=== PATIENT | male | born 1940 | race Two or more races ===

== ENCOUNTER 2021-12-24 12:33 | Outpatient (REF) | payer OTHER, SELFPAY ==
--- NOTE | ~2021-12-24 | XR_ITS ---
EXAMINATION: XR ABDOMEN KUB CLINICAL INDICATION: Constipation COMPARISON: None TECHNIQUE: AP view of the abdomen. FINDINGS: There is stool throughout the colon suggestive of constipation. There are no dilated loops of bowel to suggest obstruction. There is no evidence of free air. No calcifications are seen. There are degenerative changes of the spine. XR/XR KUB IMPRESSION: Constipation.
== END 2021-12-24 12:34 | disposition home or self-care (01) ==
LOC: HO.XRAY 12:33
PROVIDERS: PCP Internal Medicine; Visit Provider Internal Medicine
DX: K59.09 Other constipation (principal)
CPT/HCPCS: 74018

== ENCOUNTER 2022-05-05 15:19 | Inpatient (IN) | payer OTHER, SELFPAY ==
[2022-05-05] VITALS (7 sets, daily range): BP systolic 128–156; BP diastolic 50–73; PULSE 62–89; RESP 17–21; TEMP 37.2–37.7; O2SAT 92–100; BMI 23.8
--- NOTE | ~2022-05-05 | CT_ITS ---
EXAMINATION: CT ANGIOGRAM OF THE CHEST WITH AND WITHOUT CONTRAST (CT PULMONARY ANGIOGRAM FOR PE) CLINICAL INFORMATION: Reason for Exam Hypoxia. Prostate CA. rule out PE COMPARISON: None TECHNIQUE: Prior to contrast administration, noncontrast localization images were obtained. Subsequently, multidetector volumetric imaging was performed from the thoracic inlet to below the diaphragms following the administration of 85 mL Omnipaque 350 intravenous contrast. No contrast reaction reported Sagittal, coronal, and MIP oblique sagittal reformatted images were obtained on the CT workstation, uploaded to PACS, and reviewed. This CT examination was performed using dose optimization techniques as appropriate, variously including the following: *Automated exposure control *Adjustment of mA and/or kV according to patient size (this includes techniques or standardized protocols for targeted exams where dose is matched to indication/reason for exam; i.e. extremities or head) *Use of iterative reconstruction technique Total exam dose-length product 719 mGy-cm FINDINGS: QUALITY OF STUDY/CONTRAST BOLUS: Satisfactory. PULMONARY ARTERIES: No central or segmental pulmonary emboli. THORACIC AORTA: No aneurysm or dissection. LUNG: Perifissural lymph node present at the confluence of the fissures on the right. A calcified granuloma in the lingula. No focal consolidation, nodules or worrisome masses. PLEURA: No pleural effusion or pneumothorax. MEDIASTINUM: Normal heart size. No pericardial effusion. No hilar or mediastinal lymphadenopathy. No evidence of septal bowing or right heart strain. CHEST WALL/AXILLA: No axillary or internal mammary lymphadenopathy. OSSEOUS STRUCTURES: No acute or suspicious osseous abnormality. UPPER ABDOMEN: See report of abdomen/pelvis CT same day No reflux of contrast into the hepatic veins to suggest elevated right heart pressures. CT/CT angio chest PE protocol IMPRESSION: No pulmonary emboli are detected VTE: negative
--- NOTE | ~2022-05-05 | CT_ITS ---
EXAMINATION: CT ABDOMEN AND PELVIS WITH CONTRAST CLINICAL INFORMATION: Weakness and anemia COMPARISON: None TECHNIQUE: Multidetector volumetric images were obtained from the superior aspect of the liver through the pubic symphysis following administration 85 mL of Omnipaque 350 intravenous contrast. Sagittal and coronal reformatted images were obtained on the technologist's workstation. Oral contrast: No This CT examination was performed using dose optimization techniques as appropriate, variously including the following: *Automated exposure control *Adjustment of mA and/or kV according to patient size (this includes techniques or standardized protocols for targeted exams where dose is matched to indication/reason for exam; i.e. extremities or head) *Use of iterative reconstruction technique DLP: 719 mGy-cm FINDINGS: LUNG BASES: The visualized lung bases are unremarkable. LIVER, GALLBLADDER, AND BILIARY TREE: The liver is normal in size, shape, and attenuation. No focal hepatic lesion or biliary ductal dilatation is present. The gallbladder is unremarkable with no evidence of radiopaque gallstones, gallbladder wall thickening, or obvious pericholecystic inflammatory changes. PANCREAS: Unremarkable. SPLEEN: Unremarkable. ADRENAL GLANDS: Unremarkable. KIDNEYS AND URETERS: The kidneys are normal in size, shape, and attenuation. There is a benign Bosniak class I 3 cm cyst in the right kidney along with the smaller 7 mm cyst in the left kidney. No further imaging or follow-up is needed. No solid renal masses. No hydronephrosis, hydroureter, or calculi seen. No perinephric stranding. BLADDER: Unremarkable. GASTROINTESTINAL TRACT: The small and large bowel are unremarkable. The appendix is unremarkable. ABDOMINAL WALL: A left inguinal hernia seen containing fat and a small amount of fluid. LYMPH NODES: No retroperitoneal lymphadenopathy. VASCULAR: Unremarkable. PELVIC VISCERA: A large left hydrocele is partially visualized. There is mild enlargement of the prostate. OSSEOUS STRUCTURES: Mild degenerative changes present throughout the spine. No bony destructive lesions or evidence of bony metastatic disease. There is a single sclerotic foci present in the left iliac bone (15:59). CT/CT abdomen pelvis w con IMPRESSION: 1. No acute intra-abdominal disease. 2. Incidental note made of a left inguinal hernia with a small amount of fat and fluid within the sac and an associated large left hydrocele. Fleischner guidelines were followed.
--- NOTE | ~2022-05-05 | CT_ITS ---
EXAMINATION: NONCONTRAST HEAD CT NONCONTRAST CERVICAL SPINE CT INDICATION INFORMATION: Fall, question head injury. COMPARISON: MR cervical spine 02/28/2012 TECHNIQUE: Separate noncontrast CT examinations of the head and cervical spine were performed. Coronal and sagittal images were created for each examination at the technologist workstation. This CT examination was performed using dose optimization techniques as appropriate, variously including the following: *Automated exposure control *Adjustment of mA and/or kV according to patient size (this includes techniques or standardized protocols for targeted exams where dose is matched to indication/reason for exam; i.e. extremities or head) *Use of iterative reconstruction technique DLP: 1103 mGy-cm FINDINGS: HEAD: No intra or extra-axial fluid collection, hemorrhage, or mass. No ventriculomegaly. No midline shift or herniation. Basal cisterns are patent. Dumont-white matter differentiation is maintained. No territorial encephalomalacia. Proportional prominence of the ventricles and sulcal spaces is consistent with mild volume loss. Patchy periventricular and deep white matter hypoattenuation is consistent with mild small vessel ischemic changes. Small hypodense foci in the left basal ganglia suspicious for chronic tiny lacunar infarcts versus dilated perivascular spaces. No calvarial fracture or soft tissue abnormality. Minimal mucosal thickening in the floor the maxillary antra. Mastoid air cells are normally aerated. Status post bilateral lens extractions. CERVICAL SPINE: Alignment: Mild retrolisthesis at C3-C4, C4-C5, and C5-C6. Minimal grade 1 anterolisthesis at C7-T1. Widening of the atlantodens interval measuring 4-5 mm and narrowing of the AP diameter of the spinal canal at the C1-C2 level measuring approximately 6 mm. There is partially mineralized soft tissue thickening of the dens.. Cysts similar to prior MRI of 2012. Vertebra: No acute fracture. No prevertebral soft tissue swelling. Degenerative disc disease: Severe cervical spondylosis at C3-C4 through C6-C7. Milder degenerative disc disease at C2-C3 and C7-T1. Multilevel facet arthrosis and uncovertebral spurring. Multilevel moderate to severe if not severe central spinal canal stenosis suspected. Other findings: No cervical lymphadenopathy. Visualized major salivary glands and thyroid gland are unremarkable. Visualized lung apices are clear. CT/CT cervical spine wo con IMPRESSION: 1. No intracranial hemorrhage, calvarial fracture, or other acute intracranial abnormality. 2. No traumatic subluxation or acute cervical spine fracture. 3. Severe multilevel cervical spondylosis with moderate to severe and/or degrees of multilevel central spinal canal stenosis. 4. Widening of the atlantodens interval with resultant narrowing of the spinal canal diameter at C1-C2 suggesting injury or chronic laxity of the transverse ligament. Findings were present on prior MRI of 2011, and may have worsened only slightly.
--- NOTE | ~2022-05-05 | XR_ITS ---
EXAMINATION: XR CHEST CLINICAL INFORMATION: Weakness. COMPARISON: Chest x-ray 09/27/2012 TECHNIQUE: Frontal portable view of the chest was obtained. 1625 hours FINDINGS: Lung volume low. No acute change. No pulmonary vascular congestion. No focal consolidation, pleural effusion or pneumothorax. Heart size is normal. Cardiac mediastinal contours are normal. XR/XR chest 1V IMPRESSION: No acute abnormality of chest.
--- NOTE | 2022-05-05 16:25 | ECG_ITS ---
Test Reason : WEAKNESS Blood Pressure : / mmHG Vent. Rate : 075 BPM Atrial Rate : 075 BPM P-R Int : 146 ms QRS Dur : 076 ms QT Int : 362 ms P-R-T Axes : 053 -23 051 degrees QTc Int : 404 ms Artifact in tracing Sinus rhythm with Premature supraventricular complexes Nonspecific ST and T wave abnormality Abnormal ECG When compared with ECG of 27-SEP-2012 17:55, Premature supraventricular complexes are now Present Referred By: Gisela Torrez Electronically Signed By:MALIK BECK
--- NOTE | 2022-05-05 17:15 | ED_ITS ---
HPI - Weakness General Chief complaint: Weakness <MILLI Starr Last Filed: 05/05/22 18:16> Stated complaint: weakness covid + <MILLI Starr Last Filed: 05/05/22 18:16> Time Seen by Provider: 05/05/22 15:29 <MILLI Starr Last Filed: 05/05/22 18:16> Source: patient and EMS <MILLI Starr Last Filed: 05/05/22 18:16> Mode of arrival: EMS <MILLI Starr Last Filed: 05/05/22 18:16> History of Present Illness HPI Narrative: 81-year-old male with past medical history of prostate CA, COVID-19 positive at home yesterday, presenting to the ED complaining of increasing generalized weakness/fatigue with difficulty ambulating. Roommate reports chronic frequent falls, baseline supposed to be ambulating with walker however uses cane home, and patient was unable to ambulate today. Patient reports fall last night, unknown head trauma however does report headache. Also reports 1 episode of emesis yesterday and intermittent lightheadedness. Denies vision change/loss, CP, SOB, abdominal pain, vomiting, pedal edema, dysuria/hematuria. Denies taking anticoagulation. Patient is poor historian <MILLI Starr Last Filed: 05/05/22 18:16> MD Complaint: generalized weakness <MILLI Starr Last Filed: 05/05/22 18:16> Onset (ago): day(s) <MILLI Starr Last Filed: 05/05/22 18:16> Related Data Home medications: Home Medications Medication Instructions Recorded Confirmed B-complex with vitamin C 1 tab PO DAILY 05/05/22 05/05/22 calcium carbonate 500 mg-vitamin 1 tab PO DAILY 05/05/22 05/05/22 D3 10 mcg (400 unit) tablet (Oyster Shell Calcium-Vitamin D3) cholecalciferol (vitamin D3) 50 1 cap PO DAILY 05/05/22 05/05/22 mcg (2,000 unit) capsule meloxicam 15 mg tablet 1 tab PO DAILY 05/05/22 05/05/22 mirtazapine 15 mg tablet 1 tab PO BEDTIME 05/05/22 05/05/22 paroxetine HCl 10 mg tablet 1 tab PO DAILY 05/05/22 05/05/22 tamsulosin 0.4 mg capsule 1 cap PO DAILY 05/05/22 05/05/22 tizanidine 2 mg tablet 1 tab PO BEDTIME 05/05/22 05/05/22 tolterodine 4 mg capsule,extended 1 cap PO DAILY 05/05/22 05/05/22 release 24 hr <MILLI Starr - Last Filed: 05/05/22 18:16> Allergies/Adverse reactions: Allergies Allergy/AdvReac Type Severity Reaction Status Date / Time No Known Allergies Allergy Unverified 06/12/20 18:16 <MILLI Starr Last Filed: 05/05/22 18:16> Review of Systems Review of Systems: Constitutional: No Fever, No Chills, No Night Sweats, + Fatigue, + Malaise ENT/Mouth: No Ear Pain, No Nasal Congestion, No sore throat, No Rhinorrhea Eyes: No Eye Pain, No Swelling, No Redness, No Vision Changes Cardiovascular: No Chest Pain, No SOB, No Dyspnea on Exertion, No Edema Respiratory: No Cough, No Sputum, No Dyspnea Gastrointestinal: + Nausea, No Vomiting, No Diarrhea, No Constipation, No Abdominal pain Genitourinary: No Dysuria, No Flank Pain, No Urinary Flow Changes, No Hesitancy Musculoskeletal: No joint pain, No Myalgias, No Joint Swelling Skin: No Skin Lesions, No rash Neuro: + Weakness, No Loss of Consciousness, + lightheadedness, + Headache Patient is poor historian <MILLI Starr Last Filed: 05/05/22 18:16> Yes all other systems are reviewed and are negative <MILLI Starr Last Filed: 05/05/22 18:16> Constitutional: Constitutional: Reports as per HPI <MILLI Starr Last Filed: 05/05/22 18:16> Neurologic: Denies Abnormal speech present <MILLI Starr Last Filed: 05/05/22 18:16> [facility]LY [facility] Past Medical History Attestation statement: The following information was validated with the patient. <MILLI Starr Last Filed: 05/05/22 18:16> Social History Social History: Social History Advance Directives: Yes Advance Directives Information Provided: Yes Advance Directives on File: No <MILLI Starr - Last Filed: 05/05/22 18:16> Physical Exam Vital Signs: Vital Signs: Last Vital Signs Temp 99.6 F 05/05/22 19:46 Pulse 83 05/05/22 19:46 Resp 17 05/05/22 19:46 BP 132/73 05/05/22 19:46 Pulse Ox 92 05/05/22 17:23 O2 Del Method 05/05/22 17:23 O2 Flow Rate 1 05/05/22 17:23 BMI result Body Mass Index 23.8 <MILLI Starr - Last Filed: 05/05/22 18:16> Vital Signs: Last Vital Signs Temp 99.6 F 05/05/22 19:46 Pulse 83 05/05/22 19:46 Resp 17 05/05/22 19:46 BP 132/73 05/05/22 19:46 Pulse Ox 92 05/05/22 17:23 O2 Del Method 05/05/22 17:23 O2 Flow Rate 1 05/05/22 17:23 BMI result Body Mass Index 23.8 <Yina Bush NP - Last Filed: 05/05/22 20:01> Const: General: cooperative, no acute distress, alert and awake <MILLI Everett - Last Filed: 05/05/22 18:16> Limitations: no limitations <MILLI Starr - Last Filed: 05/05/22 18:16> HEENT: Head: Yes normal to inspection, Yes atraumatic and No Amin's sign <MILLI Starr - Last Filed: 05/05/22 18:16> Ears: hearing grossly normal bilaterally <MILLI Starr Last Filed: 18:16> General nose exam: Normal external nose present <MILLI Starr - Last Filed: 05/05/22 18:16> Face and sinus: Yes normal facial exam <MILLI Starr - Last Filed: 05/05/22 18:16> Mouth: mucous membranes dry <MILLI Starr - Last Filed: 05/05/22 18:16> Throat: Yes posterior oropharynx normal, Yes tonsils normal and Yes uvula midline <Gisela Torrez AL - Last Filed: 05/05/22 18:16> Eyes: General: appearance normal, both eyes and all related structures <Gisela Torrez PA - Last Filed: 05/05/22 18:16> Pupils: Equal, round and reactive pupils present <Gisela Torrez AL - Last Filed: 05/05/22 18:16> EOM: EOMs intact bilaterally <Gisela Torrez AL - Last Filed: 05/05/22 18:16> Neck: Neck: Yes normal visual inspection and Yes no meningeal signs <Gisela Torrez AL - Last Filed: 05/05/22 18:16> Resp: Effort & Inspection: normal respiratory effort and no respiratory distress <Gisela Torrez AL - Last Filed: 05/05/22 18:16> Auscultation: crackles bilateral at the base <Gisela Torrez AL - Last Filed: 05/05/22 18:16> Cardio: Rate: regular rate <Gisela Torrez AL - Last Filed: 05/05/22 18:16> Heart sounds: S1 normal heart sound present and S2 normal heart sound present <Gisela Torrez AL - Last Filed: 05/05/22 18:16> GI: Inspection: Yes normal to inspection <Gisela Torrez AL - Last Filed: 05/05/22 18:16> Palpation (GI): Soft to palpation, nontender, no guarding and not rigid <Gisela Torrez AL - Last Filed: 05/05/22 18:16> : General: Yes no CVA tenderness <Gisela Torrez PA - Last Filed: 05/05/22 18:16> Back/Spine/Pelvis: Other: No midline thoracic/lumbar spinous tenderness/step-off or deformity <Gisela Torrez PA - Last Filed: 05/05/22 18:16> Back: no CVA tenderness <Gisela Torrez AL - Last Filed: 05/05/22 18:16> Skin: Rashes: no rashes <Gisela Torrez PA - Last Filed: 05/05/22 18:16> Wounds: no wounds <Gisela Linneaterrell PA - Last Filed: 05/05/22 18:16> Neuro: General: tone normal, moves all extremities, no meningeal signs, no focal motor deficits, CN's II-XI intact bilaterally and Unable to assess gait <Gisela Linneaterrell PA - Last Filed: 05/05/22 18:16> Cranial nerves: Yes CN's II-XII intact bilaterally, Yes Equal, round and reactive pupils present and Yes Bilaterally intact EOM present <Gisela Linneaterrell PA - Last Filed: 05/05/22 18:16> Speech: No Abnormal speech present <Gisela Linneaterrell PA - Last Filed: 05/05/22 18:16> Gait exam (Neuro): Unable to assess gait <Gisela Linneaterrell PA - Last Filed: 05/05/22 18:16> Motor exam (neuro): 5/5 motor strength present throughout, Pronator motor function not present and no tremor noted <Gisela Linneaterrell PA - Last Filed: 05/05/22 18:16> Deep tendon reflexes (DTR's): Right patellar reflex intensity grade: 2+ and Left patellar reflex intensity grade: 2+ <Gisela Torrez PA - Last Filed: 05/05/22 18:16> Coordination: [id number] test normal <Gisela Linneaterrell PA - Last Filed: 05/05/22 18:16> Romberg Test: Negative <Gisela Torrez PA - Last Filed: 05/05/22 18:16> Extrem: General: Yes normal to inspection and Yes no pedal edema <Gisela Torrez PA - Last Filed: 05/05/22 18:16> Course Course Course Narrative: -1731--receive critical value from laboratory hemoglobin is 6.6 > will obtain occult stool and plan for transfusion of 1 unit RBCs >> blood consent signed, 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 Patient denies hematochezia or melena. XR chest 1V IMPRESSION: No acute abnormality of chest. > will obtain CT chest and abdomen/pelvis to rule out mass/PE -leukopenia likely from COVID-19 infection. BUN a baseline. troponin negative -COVID-[address] head/brain wo con IMPRESSION: ? 1. No intracranial hemorrhage, calvarial fracture, or other acute intracranial abnormality. 2. No traumatic subluxation or acute cervical spine fracture. 3. Severe multilevel cervical spondylosis with moderate to severe and/or degrees of multilevel central spinal canal stenosis. 4. Widening of the atlantodens interval with resultant narrowing of the spinal canal diameter at C1-C2 suggesting injury or chronic laxity of the transverse ligament. Findings? were present on prior MRI of 2011, and may have worsened only slightly. -1800--ED care transferred to [facility] pending CT chest/abdomen/pelvis CT and admission <MILLI Starr - Last Filed: 05/05/22 18:16> Reevaluation(s) Reevaluation #1: 2000- CT abdomen and pelvis and chest showed no acute finding. Patient will need admission for anemia, hypoxia secondary to COVID-19 requiring supplemental oxygen. the case was discussed with Dr. Jones who accepted admission <Yina Bush NP - Last Filed: 05/05/22 20:01> MDM - Weakness MDM Narrative Medical decision making narrative: 81-year-old male with past medical history of prostate CA, COVID-19 positive at home yesterday, presenting to the ED complaining of increasing generalized weakness/fatigue with difficulty ambulating. On exam low-grade fever to 99.3, satting 88% on RA > improved to 92% on 1L NC, Bibasilar crackles noted, abdomen is soft and nontender, no focal neuro deficits, bilateral patellar DTRs WNL. Patient unable to ambulate/ weight secondary to weaknes s. Concern for weakness/fatigue from COVID-19 diagnosis vs viral pneumonia vs metabolic abnormalities. With patient's history of prostate CA and hypoxia concern for PE. Lower suspicion for CHF/ACS. Low suspicion for demyelinating process like GB Plan: EKG, labs, UA, CXR, IV Decadron, head/C-spine CT, COVID-19 testing, orthostatics, IVF, anticipated admission <MILLI Starr - Last Filed: 05/05/22 18:16> Differential Diagnosis Differential diagnosis: Likely dehydration <MILLI Starr - Last Filed: 05/05/22 18:16> Medical Records Attestation: I reviewed the patient's medical records. <MILLI Starr - Last Filed: 05/05/22 18:16> Lab Data Attestation: I reviewed the patient's lab results. <MILLI Starr - Last Filed: 05/05/22 18:16> Result diagrams: : 05/05/22 17:10 05/05/22 17:10 <MILLI Starr - Last Filed: 05/05/22 18:16> Labs: Lab Results 05/05/22 05/05/22 05/05/22 Range/Units 17:10 17:10 17:10 WBC 4.6 L (4.8-10.8) X10*3/uL RBC 3.57 L (4.60-5.80) X10*6/uL Hgb 6.6 L* (14.0-18.0) g/dl Hct 23.6 L (42.0-52.0) % MCV 66.1 L (80.0-98.0) fL MCH 18.5 L (27.0-33.0) pg MCHC 28.0 L (31.0-36.0) g/dl RDW 23.9 H (11.0-16.0) % Plt Count 223 (160-400) X10*3/uL MPV 8.4 L (9.4-12.4) fL Immature Gran % (Auto) 0.4 (0.0-0.4) % Neut % (Auto) 67.3 (45-73) % Lymph % (Auto) 14.7 L (20-40) % [place] % (Auto) 15.2 H (2-11) % Eos % (Auto) 1.5 (0-4) % Baso % (Auto) 0.9 (0-2) % Lymph # (Auto) 0.7 L (1.2-4.9) X10*3/uL [place] # (Auto) 0.7 (0.1-1.2) X10*3/uL Eos # (Auto) 0.1 (0.0-0.4) X10*3/uL Baso # (Auto) 0.0 (0.0-0.2) X10*3/uL Abs Immat Gran (auto) 0.02 (0.00-0.03) X10*3/uL Absolute Neuts (auto) 3.1 (2.0-8.3) x10*3/uL Absolute Nucleated RBC 0.000 (0.0-0.012) X10*3/uL Nucleated RBC % (auto) 0.0 (0.0-0.2) /100WBC PT (10.0-13.1) SEC INR (0.9-1.1) D-Dimer High Sensitivty NG/ML Sodium 139 (135-145) mmol/L Potassium 4.3 (3.3-5.1) mmol/L Chloride 105 (96-108) mmol/L Carbon Dioxide 25 (22-29) mmol/L Anion Gap 13 (12-20) BUN 19 H (9-16) mg/dL Creatinine 1.05 (0.5-1.4) mg/dL Estim Creat Clear Calc 45.4 Estimated GFR > 60 Random Glucose 84 (60-115) mg/dL Lactic Acid (0.5-2.0) mmol/L Calcium 8.8 (8.4-10.2) mg/dL Magnesium 2.2 (1.6-2.6) mg/dL Ferritin Total Bilirubin 0.2 (0.0-1.0) mg/dL Direct Bilirubin < 0.2 (0.0-0.5) mg/dL AST 29 (5-37) U/L ALT 15 (0-40) U/L Alkaline Phosphatase 64 (39-117) U/L Lactate Dehydrogenase 261 (118-273) U/L Troponin I High Sens 3.7 (<3.5-35.0) ng/L B-Natriuretic Peptide (<100) pg/mL Total Protein 6.3 L (6.5-8.0) g/dL Albumin 3.6 (3.5-5.0) g/dL Lipase 41 (8-78) U/L Procalcitonin ng/mL Stool Occult Blood (NEGATIVE) COVID-19 (TOBI) (Negative) COVID-19 Clin Com Blood Type Antibody Screen Crossmatch 05/05/22 05/05/22 05/05/22 Range/Units 17:10 17:10 17:10 WBC (4.8-10.8) X10*3/uL RBC (4.60-5.80) X10*6/uL Hgb (14.0-18.0) g/dl Hct (42.0-52.0) % MCV (80.0-98.0) fL MCH (27.0-33.0) pg MCHC (31.0-36.0) g/dl RDW (11.0-16.0) % Plt Count (160-400) X10*3/uL MPV (9.4-12.4) fL Immature Gran % (Auto) (0.0-0.4) % Neut % (Auto) (45-73) % Lymph % (Auto) (20-40) % [place] % (Auto) (2-11) % Eos % (Auto) (0-4) % Baso % (Auto) (0-2) % Lymph # (Auto) (1.2-4.9) X10*3/uL [place] # (Auto) (0.1-1.2) X10*3/uL Eos # (Auto) (0.0-0.4) X10*3/uL Baso # (Auto) (0.0-0.2) X10*3/uL Abs Immat Gran (auto) (0.00-0.03) X10*3/uL Absolute Neuts (auto) (2.0-8.3) x10*3/uL Absolute Nucleated RBC (0.0-0.012) X10*3/uL Nucleated RBC % (auto) (0.0-0.2) /100WBC PT (10.0-13.1) SEC INR (0.9-1.1) D-Dimer High Sensitivty NG/ML Sodium (135-145) mmol/L Potassium (3.3-5.1) mmol/L Chloride (96-108) mmol/L Carbon Dioxide (22-29) mmol/L Anion Gap (12-20) BUN (9-16) mg/dL Creatinine (0.5-1.4) mg/dL Estim Creat Clear Calc Estimated GFR Random Glucose (60-115) mg/dL Lactic Acid (0.5-2.0) mmol/L Calcium (8.4-10.2) mg/dL Magnesium (1.6-2.6) mg/dL Ferritin Cancelled Total Bilirubin (0.0-1.0) mg/dL Direct Bilirubin (0.0-0.5) mg/dL AST (5-37) U/L ALT (0-40) U/L Alkaline Phosphatase (39-117) U/L Lactate Dehydrogenase (118-273) U/L Troponin I High Sens (<3.5-35.0) ng/L B-Natriuretic Peptide 190 H (<100) pg/mL Total Protein (6.5-8.0) g/dL Albumin (3.5-5.0) g/dL Lipase (8-78) U/L Procalcitonin 0.05 ng/mL Stool Occult Blood (NEGATIVE) COVID-19 (TOBI) (Negative) COVID-19 Clin Com Blood Type Antibody Screen Crossmatch 05/05/22 05/05/22 05/05/22 Range/Units 17:11 17:56 17:56 WBC (4.8-10.8) X10*3/uL RBC (4.60-5.80) X10*6/uL Hgb (14.0-18.0) g/dl Hct (42.0-52.0) % MCV (80.0-98.0) fL MCH (27.0-33.0) pg MCHC (31.0-36.0) g/dl RDW (11.0-16.0) % Plt Count (160-400) X10*3/uL MPV (9.4-12.4) fL Immature Gran % (Auto) (0.0-0.4) % Neut % (Auto) (45-73) % Lymph % (Auto) (20-40) % [place] % (Auto) (2-11) % Eos % (Auto) (0-4) % Baso % (Auto) (0-2) % Lymph # (Auto) (1.2-4.9) X10*3/uL [place] # (Auto) (0.1-1.2) X10*3/uL Eos # (Auto) (0.0-0.4) X10*3/uL Baso # (Auto) (0.0-0.2) X10*3/uL Abs Immat Gran (auto) (0.00-0.03) X10*3/uL Absolute Neuts (auto) (2.0-8.3) x10*3/uL Absolute Nucleated RBC (0.0-0.012) X10*3/uL Nucleated RBC % (auto) (0.0-0.2) /100WBC PT 11.6 (10.0-13.1) SEC INR 1.0 (0.9-1.1) D-Dimer High Sensitivty 290 NG/ML Sodium (135-145) mmol/L Potassium (3.3-5.1) mmol/L Chloride (96-108) mmol/L Carbon Dioxide (22-29) mmol/L Anion Gap (12-20) BUN (9-16) mg/dL Creatinine (0.5-1.4) mg/dL Estim Creat Clear Calc Estimated GFR Random Glucose (60-115) mg/dL Lactic Acid (0.5-2.0) mmol/L Calcium (8.4-10.2) mg/dL Magnesium (1.6-2.6) mg/dL Ferritin Total Bilirubin (0.0-1.0) mg/dL Direct Bilirubin (0.0-0.5) mg/dL AST (5-37) U/L ALT (0-40) U/L Alkaline Phosphatase (39-117) U/L Lactate Dehydrogenase (118-273) U/L Troponin I High Sens (<3.5-35.0) ng/L B-Natriuretic Peptide (<100) pg/mL Total Protein (6.5-8.0) g/dL Albumin (3.5-5.0) g/dL Lipase (8-78) U/L Procalcitonin ng/mL Stool Occult Blood (NEGATIVE) COVID-19 (TOBI) Positive A (Negative) COVID-19 Clin Com See Note Blood Type O Positive Antibody Screen NEGATIVE Crossmatch See Detail 05/05/22 05/05/22 Range/Units 17:56 19:44 WBC (4.8-10.8) X10*3/uL RBC (4.60-5.80) X10*6/uL Hgb (14.0-18.0) g/dl Hct (42.0-52.0) % MCV (80.0-98.0) fL MCH (27.0-33.0) pg MCHC (31.0-36.0) g/dl RDW (11.0-16.0) % Plt Count (160-400) X10*3/uL MPV (9.4-12.4) fL Immature Gran % (Auto) (0.0-0.4) % Neut % (Auto) (45-73) % Lymph % (Auto) (20-40) % [place] % (Auto) (2-11) % Eos % (Auto) (0-4) % Baso % (Auto) (0-2) % Lymph # (Auto) (1.2-4.9) X10*3/uL [place] # (Auto) (0.1-1.2) X10*3/uL Eos # (Auto) (0.0-0.4) X10*3/uL Baso # (Auto) (0.0-0.2) X10*3/uL Abs Immat Gran (auto) (0.00-0.03) X10*3/uL Absolute Neuts (auto) (2.0-8.3) x10*3/uL Absolute Nucleated RBC (0.0-0.012) X10*3/uL Nucleated RBC % (auto) (0.0-0.2) /100WBC PT (10.0-13.1) SEC INR (0.9-1.1) D-Dimer High Sensitivty NG/ML Sodium (135-145) mmol/L Potassium (3.3-5.1) mmol/L Chloride (96-108) mmol/L Carbon Dioxide (22-29) mmol/L Anion Gap (12-20) BUN (9-16) mg/dL Creatinine (0.5-1.4) mg/dL Estim Creat Clear Calc Estimated GFR Random Glucose (60-115) mg/dL Lactic Acid 1.6 (0.5-2.0) mmol/L Calcium (8.4-10.2) mg/dL Magnesium (1.6-2.6) mg/dL Ferritin Total Bilirubin (0.0-1.0) mg/dL Direct Bilirubin (0.0-0.5) mg/dL AST (5-37) U/L ALT (0-40) U/L Alkaline Phosphatase (39-117) U/L Lactate Dehydrogenase (118-273) U/L Troponin I High Sens (<3.5-35.0) ng/L B-Natriuretic Peptide (<100) pg/mL Total Protein (6.5-8.0) g/dL Albumin (3.5-5.0) g/dL Lipase (8-78) U/L Procalcitonin ng/mL Stool Occult Blood NEGATIVE (NEGATIVE) COVID-19 (TOBI) (Negative) COVID-19 Clin Com Blood Type Antibody Screen Crossmatch <MILLI Starr - Last Filed: 05/05/22 18:16> Lab Results 05/05/22 05/05/22 05/05/22 Range/Units 17:10 17:10 17:10 WBC 4.6 L (4.8-10.8) X10*3/uL RBC 3.57 L (4.60-5.80) X10*6/uL Hgb 6.6 L* (14.0-18.0) g/dl Hct 23.6 L (42.0-52.0) % MCV 66.1 L (80.0-98.0) fL MCH 18.5 L (27.0-33.0) pg MCHC 28.0 L (31.0-36.0) g/dl RDW 23.9 H (11.0-16.0) % Plt Count 223 (160-400) X10*3/uL MPV 8.4 L (9.4-12.4) fL Immature Gran % (Auto) 0.4 (0.0-0.4) % Neut % (Auto) 67.3 (45-73) % Lymph % (Auto) 14.7 L (20-40) % [place] % (Auto) 15.2 H (2-11) % Eos % (Auto) 1.5 (0-4) % Baso % (Auto) 0.9 (0-2) % Lymph # (Auto) 0.7 L (1.2-4.9) X10*3/uL [place] # (Auto) 0.7 (0.1-1.2) X10*3/uL Eos # (Auto) 0.1 (0.0-0.4) X10*3/uL Baso # (Auto) 0.0 (0.0-0.2) X10*3/uL Abs Immat Gran (auto) 0.02 (0.00-0.03) X10*3/uL Absolute Neuts (auto) 3.1 (2.0-8.3) x10*3/uL Absolute Nucleated RBC 0.000 (0.0-0.012) X10*3/uL Nucleated RBC % (auto) 0.0 (0.0-0.2) /100WBC PT (10.0-13.1) SEC INR (0.9-1.1) D-Dimer High Sensitivty NG/ML Sodium 139 (135-145) mmol/L Potassium 4.3 (3.3-5.1) mmol/L Chloride 105 (96-108) mmol/L Carbon Dioxide 25 (22-29) mmol/L Anion Gap 13 (12-20) BUN 19 H (9-16) mg/dL Creatinine 1.05 (0.5-1.4) mg/dL Estim Creat Clear Calc 45.4 Estimated GFR > 60 Random Glucose 84 (60-115) mg/dL Lactic Acid (0.5-2.0) mmol/L Calcium 8.8 (8.4-10.2) mg/dL Magnesium 2.2 (1.6-2.6) mg/dL Ferritin Total Bilirubin 0.2 (0.0-1.0) mg/dL Direct Bilirubin < 0.2 (0.0-0.5) mg/dL AST 29 (5-37) U/L ALT 15 (0-40) U/L Alkaline Phosphatase 64 (39-117) U/L Lactate Dehydrogenase 261 (118-273) U/L Troponin I High Sens 3.7 (<3.5-35.0) ng/L B-Natriuretic Peptide (<100) pg/mL Total Protein 6.3 L (6.5-8.0) g/dL Albumin 3.6 (3.5-5.0) g/dL Lipase 41 (8-78) U/L Procalcitonin ng/mL Stool Occult Blood (NEGATIVE) COVID-19 (TOBI) (Negative) COVID-19 Clin Com Blood Type Antibody Screen Crossmatch 05/05/22 05/05/2205/05/22 Range/Units 17:10 17:10 17:10 WBC (4.8-10.8) X10*3/uL RBC (4.60-5.80) X10*6/uL Hgb (14.0-18.0) g/dl Hct (42.0-52.0) % MCV (80.0-98.0) fL MCH (27.0-33.0) pg MCHC (31.0-36.0) g/dl RDW (11.0-16.0) % Plt Count (160-400) X10*3/uL MPV (9.4-12.4) fL Immature Gran % (Auto) (0.0-0.4) % Neut % (Auto) (45-73) % Lymph % (Auto) (20-40) % [place] % (Auto) (2-11) % Eos % (Auto) (0-4) % Baso % (Auto) (0-2) % Lymph # (Auto) (1.2-4.9) X10*3/uL [place] # (Auto) (0.1-1.2) X10*3/uL Eos # (Auto) (0.0-0.4) X10*3/uL Baso # (Auto) (0.0-0.2) X10*3/uL Abs Immat Gran (auto) (0.00-0.03) X10*3/uL Absolute Neuts (auto) (2.0-8.3) x10*3/uL Absolute Nucleated RBC (0.0-0.012) X10*3/uL Nucleated RBC % (auto) (0.0-0.2) /100WBC PT (10.0-13.1) SEC INR (0.9-1.1) D-Dimer High Sensitivty NG/ML Sodium (135-145) mmol/L Potassium (3.3-5.1) mmol/L Chloride (96-108) mmol/L Carbon Dioxide (22-29) mmol/L Anion Gap (12-20) BUN (9-16) mg/dL Creatinine (0.5-1.4) mg/dL Estim Creat Clear Calc Estimated GFR Random Glucose (60-115) mg/dL Lactic Acid (0.5-2.0) mmol/L Calcium (8.4-10.2) mg/dL Magnesium (1.6-2.6) mg/dL Ferritin Cancelled Total Bilirubin (0.0-1.0) mg/dL Direct Bilirubin (0.0-0.5) mg/dL AST (5-37) U/L ALT (0-40) U/L Alkaline Phosphatase (39-117) U/L Lactate Dehydrogenase (118-273) U/L Troponin I High Sens (<3.5-35.0) ng/L B-Natriuretic Peptide 190 H (<100) pg/mL Total Protein (6.5-8.0) g/dL Albumin (3.5-5.0) g/dL Lipase (8-78) U/L Procalcitonin 0.05 ng/mL Stool Occult Blood (NEGATIVE) COVID-19 (TOBI) (Negative) COVID-19 Clin Com Blood Type Antibody Screen Crossmatch 05/05/22 05/05/22 05/05/22 Range/Units 17:11 17:56 17:56 WBC (4.8-10.8) X10*3/uL RBC (4.60-5.80) X10*6/uL Hgb (14.0-18.0) g/dl Hct (42.0-52.0) % MCV (80.0-98.0) fL MCH (27.0-33.0) pg MCHC (31.0-36.0) g/dl RDW (11.0-16.0) % Plt Count (160-400) X10*3/uL MPV (9.4-12.4) fL Immature Gran % (Auto) (0.0-0.4) % Neut % (Auto) (45-73) % Lymph % (Auto) (20-40) % [place] % (Auto) (2-11) % Eos % (Auto) (0-4) % Baso % (Auto) (0-2) % Lymph # (Auto) (1.2-4.9) X10*3/uL [place] # (Auto) (0.1-1.2) X10*3/uL Eos # (Auto) (0.0-0.4) X10*3/uL Baso # (Auto) (0.0-0.2) X10*3/uL Abs Immat Gran (auto) (0.00-0.03) X10*3/uL Absolute Neuts (auto) (2.0-8.3) x10*3/uL Absolute Nucleated RBC (0.0-0.012) X10*3/uL Nucleated RBC % (auto) (0.0-0.2) /100WBC PT 11.6 (10.0-13.1) SEC INR 1.0 (0.9-1.1) D-Dimer High Sensitivty 290 NG/ML Sodium (135-145) mmol/L Potassium (3.3-5.1) mmol/L Chloride (96-108) mmol/L Carbon Dioxide (22-29) mmol/L Anion Gap (12-20) BUN (9-16) mg/dL Creatinine (0.5-1.4) mg/dL Estim Creat Clear Calc Estimated GFR Random Glucose (60-115) mg/dL Lactic Acid (0.5-2.0) mmol/L Calcium (8.4-10.2) mg/dL Magnesium (1.6-2.6) mg/dL Ferritin Total Bilirubin (0.0-1.0) mg/dL Direct Bilirubin (0.0-0.5) mg/dL AST (5-37) U/L ALT (0-40) U/L Alkaline Phosphatase (39-117) U/L Lactate Dehydrogenase (118-273) U/L Troponin I High Sens (<3.5-35.0) ng/L B-Natriuretic Peptide (<100) pg/mL Total Protein (6.5-8.0) g/dL Albumin (3.5-5.0) g/dL Lipase (8-78) U/L Procalcitonin ng/mL Stool Occult Blood (NEGATIVE) COVID-19 (TOBI) Positive A (Negative) COVID-19 Clin Com See Note Blood Type O Positive Antibody Screen NEGATIVE Crossmatch See Detail 05/05/22 05/05/22 Range/Units 17:56 19:44 WBC (4.8-10.8) X10*3/uL RBC (4.60-5.80) X10*6/uL Hgb (14.0-18.0) g/dl Hct (42.0-52.0) % MCV (80.0-98.0) fL MCH (27.0-33.0) pg MCHC (31.0-36.0) g/dl RDW (11.0-16.0) % Plt Count (160-400) X10*3/uL MPV (9.4-12.4) fL Immature Gran % (Auto) (0.0-0.4) % Neut % (Auto) (45-73) % Lymph % (Auto) (20-40) % [place] % (Auto) (2-11) % Eos % (Auto) (0-4) % Baso % (Auto) (0-2) % Lymph # (Auto) (1.2-4.9) X10*3/uL [place] # (Auto) (0.1-1.2) X10*3/uL Eos # (Auto) (0.0-0.4) X10*3/uL Baso # (Auto) (0.0-0.2) X10*3/uL Abs Immat Gran (auto) (0.00-0.03) X10*3/uL Absolute Neuts (auto) (2.0-8.3) x10*3/uL Absolute Nucleated RBC (0.0-0.012) X10*3/uL Nucleated RBC % (auto) (0.0-0.2) /100WBC PT (10.0-13.1) SEC INR (0.9-1.1) D-Dimer High Sensitivty NG/ML Sodium (135-145) mmol/L Potassium (3.3-5.1) mmol/L Chloride (96-108) mmol/L Carbon Dioxide (22-29) mmol/L Anion Gap (12-20) BUN (9-16) mg/dL Creatinine (0.5-1.4) mg/dL Estim Creat Clear Calc Estimated GFR Random Glucose (60-115) mg/dL Lactic Acid 1.6 (0.5-2.0) mmol/L Calcium (8.4-10.2) mg/dL Magnesium (1.6-2.6) mg/dL Ferritin Total Bilirubin (0.0-1.0) mg/dL Direct Bilirubin (0.0-0.5) mg/dL AST (5-37) U/L ALT (0-40) U/L Alkaline Phosphatase (39-117) U/L Lactate Dehydrogenase (118-273) U/L Troponin I High Sens (<3.5-35.0) ng/L B-Natriuretic Peptide (<100) pg/mL Total Protein (6.5-8.0) g/dL Albumin (3.5-5.0) g/dL Lipase (8-78) U/L Procalcitonin ng/mL Stool Occult Blood NEGATIVE (NEGATIVE) COVID-19 (TOBI) (Negative) COVID-19 Clin Com Blood Type Antibody Screen Crossmatch <Yina Bush NP - Last Filed: 05/05/22 20:01> Imaging Data CT scan - abdomen: Attestation: I personally reviewed and interpreted this imaging study as follows: <Yina Bush NP - Last Filed: 05/05/22 20:01> Radiologist's impression: FINDINGS: LUNG BASES: The visualized lung bases are unremarkable.? LIVER, GALLBLADDER, AND BILIARY TREE: The liver is normal in size, shape, and attenuation. No focal hepatic lesion or biliary ductal dilatation is present. The gallbladder is unremarkable with no evidence of radiopaque gallstones, gallbladder wall thickening, or obvious pericholecystic inflammatory changes.? PANCREAS: Unremarkable.? SPLEEN: Unremarkable.? ADRENAL GLANDS: Unremarkable.? KIDNEYS AND URETERS: The kidneys are normal in size, shape, and attenuation. There is a benign Bosniak class I 3 cm cyst in the right kidney along with the smaller 7 mm cyst in the left kidney. No further imaging or follow-up is needed. No solid renal masses. No hydronephrosis, hydroureter, or calculi seen. No perinephric stranding. ? BLADDER: Unremarkable.? GASTROINTESTINAL TRACT: The small and large bowel are unremarkable. The appendix is unremarkable.? ABDOMINAL WALL: A left inguinal hernia seen containing fat and a small amount of fluid.? LYMPH NODES: No retroperitoneal lymphadenopathy. VASCULAR: Unremarkable. PELVIC VISCERA: A large left hydrocele is partially visualized. There is mild enlargement of the prostate.? OSSEOUS STRUCTURES: Mild degenerative changes present throughout the spine. No bony destructive lesions or evidence of bony metastatic disease. There is a single sclerotic foci present in the left iliac bone (15:59). CT/CT abdomen pelvis w con IMPRESSION: 1.? No acute intra-abdominal disease. 2.? Incidental note made of a left inguinal hernia with a small amount of fat and fluid within the sac and an associated large left hydrocele. ? <Yina Bush NP - Last Filed: 05/05/22 20:01> CT scan - chest: Attestation: I personally reviewed and interpreted this imaging study as follows: <Yina Bush NP - Last Filed: 05/05/22 20:01> Radiologist's impression: FINDINGS: QUALITY OF STUDY/CONTRAST BOLUS: Satisfactory. PULMONARY ARTERIES: No central or segmental pulmonary emboli.? THORACIC AORTA: No aneurysm or dissection. LUNG: Perifissural lymph node present at the confluence of the fissures on the right. A calcified granuloma in the lingula. No focal consolidation, nodules or worrisome masses. PLEURA: No pleural effusion or pneumothorax. MEDIASTINUM: Normal heart size.? No pericardial effusion.? No hilar or mediastinal lymphadenopathy.? No evidence of septal bowing or right heart strain. CHEST WALL/AXILLA: No axillary or internal mammary lymphadenopathy. OSSEOUS STRUCTURES: No acute or suspicious osseous abnormality.? UPPER ABDOMEN: See report of abdomen/pelvis CT same day? No reflux of contrast into the hepatic veins to suggest elevated right heart pressures. CT/CT angio chest PE protocol IMPRESSION: No pulmonary emboli are detected ? VTE: negative <Yina Bush NP - Last Filed: 05/05/22 20:01> Critical Care Time Critical Care Time Critical Care Time: Yes <MILLI Starr - Last Filed: 05/05/22 18:16> Total Critical Care Time: 45 <MILLI Starr - Last Filed: 05/05/22 18:16> Attestation: I have personally provided critical care time exclusive of time spent on separately billable procedures. Time includes review of lab data, radiology results, discussion with consultants, and monitoring for potential decompensation. Intervention performed as documented. <MILLI Starr Last Filed: 05/05/22 18:16> Discharge Plan Discharge Clinical Impression: COVID-19, Anemia, Hypoxia <MILLI Starr - Last Filed: 05/05/22 18:16> Patient Disposition: Admitted As Inpatient <MILLI Starr - Last Filed: 05/05/22 18:16>
[2022-05-05 17:18] LABS: MANUAL DIFF FLAG NO
[2022-05-05 17:23] LABS: Basophils Percent Auto 0.9 % (0-2); Eosinophils Absolute Auto 0.1 X10*3/uL (0.0-0.4); Eosinophils Percent Auto 1.5 % (0-4); Hematocrit 23.6 % (42.0-52.0); Imm Gran Abs Auto 0.02 X10*3/uL (0.00-0.03); Imm Gran Pct Auto 0.4 % (0.0-0.4); Lymphocytes Absolute Auto 0.7 X10*3/uL (1.2-4.9); Lymphocytes Percent Auto 14.7 % (20-40); Mean Corpuscular Hemoglobin 18.5 pg (27.0-33.0); Mean Corpuscular Volume 66.1 fL (80.0-98.0); Mean Platelet Volume 8.4 fL (9.4-12.4); Monocytes Absolute Auto 0.7 X10*3/uL (0.1-1.2); Monocytes Percent Auto 15.2 % (2-11); Neutrophils Absolute Auto 3.1 x10*3/uL (2.0-8.3); Neutrophils Percent Auto 67.3 % (45-73); Platelet Count 223 X10*3/uL (160-400); Red Blood Count 3.57 X10*6/uL (4.60-5.80); Red Cell Distribution Width 23.9 % (11.0-16.0); White Blood Count 4.6 X10*3/uL (4.8-10.8)
[2022-05-05 17:30] LABS: Hemoglobin 6.6 g/dl (14.0-18.0)
[2022-05-05 17:32] LABS: COVID-19 Test Positive (Negative); IDNOW Serial# 16C4AD1C
--- NOTE | 2022-05-05 17:36 | PHA.MEDREC ---
Pharmacy Consult ? Medication Reconciliation Pharmacy has completed the medication reconciliation.
[2022-05-05 17:39] LABS: Troponin-I High Sensitivity 3.7 ng/L (<3.5-35.0)
[2022-05-05 17:40] LABS: B Type Natriuretic Peptide 190 pg/mL (<100)
[2022-05-05 17:43] LABS: Alanine Aminotransferase 15 U/L (0-40); Albumin Level 3.6 g/dL (3.5-5.0); Alkaline Phosphatase 64 U/L (39-117); Anion Gap 13 (12-20); Aspartate Amino Transferase 29 U/L (5-37); Bilirubin Direct < 0.2 mg/dL (0.0-0.5); Bilirubin Total 0.2 mg/dL (0.0-1.0); Blood Urea Nitrogen 19 mg/dL (9-16); Calcium 8.8 mg/dL (8.4-10.2); Carbon Dioxide 25 mmol/L (22-29); Chloride 105 mmol/L (96-108); Creatinine Clr Calc Pharmacy 45.4; Estimated Glomerular Filt Rate > 60; Glucose Random 84 mg/dL (60-115); Lactate Dehydrogenase 261 U/L (118-273); Lipase 41 U/L (8-78); Magnesium 2.2 mg/dL (1.6-2.6); Potassium 4.3 mmol/L (3.3-5.1); Sodium 139 mmol/L (135-145); Total Protein 6.3 g/dL (6.5-8.0)
[2022-05-05] MEDS: dexAMETHasone sod phosphate 10 MG/ML VIAL 6 MG IVPUSH (17:58)
[2022-05-05] MEDS: 0.9 % Sodium Chloride 500 ML 999 ML IV (18:01)
[2022-05-05 18:15] LABS: Procalcitonin 0.05 ng/mL
[2022-05-05 18:17] LABS: Prothrombin Time 11.6 SEC (10.0-13.1)
[2022-05-05 18:19] LABS: D Dimer High Sensitivity 290 NG/ML
[2022-05-05 18:20] LABS: Lactic Acid 1.6 mmol/L (0.5-2.0)
--- NOTE | 2022-05-05 18:24 | PC.NURSE ---
CARE ASSUMED AT THIS TIME. PT IN CT AND WILL RETURN.
[2022-05-05] MEDS: iohexoL 350 MG/ML 100 ML INFUS..BTL IV (18:26)
[2022-05-05 19:49] LABS: OBS Int Ctl Valid YES; OBS1 NEGATIVE (NEGATIVE)
--- NOTE | 2022-05-05 20:56 | P.HPHOSP_ITS ---
History of Present Illness Date of Service: 05/05/22 Chief Complaint: Generalized weakness Thai-speaking only, history is obtained with the help of project manager/team coach This is an 81-year-old male past medical history of prostate cancer, who presents to the hospital with complaints of generalized weakness. Patient rep orts that he has been progressively weak, falling, feeling generally unwell, having a cough, shortness of breath, as well as bringing up phlegm. Patient reports that this been going on for 1 week. He had a COVID test done at home yesterday which was positive. He denies having any abdominal pain, no hemoptysis, hematemesis, no melena or hematochezia. Patient reports that he is unaware of a history of anemia. No chest pain, no palpitations, no urinary symptoms and no lower extremity edema. No numbness tingling or weakness in the extremities. On arrival to the ED patient was found to be hypoxic satting 88% on room air Labs are significant for WBC count of 4.6, hemoglobin of 6.6 with hematocrit of 23.6, MCV of 66.1, labs otherwise unremarkable,BNP of 190, COVID-19 positive Chest CTA negative for any PE, Abdominal pelvic CT shows no acute intra-abdominal disease, Head CT negative Occult stool negative Given hypoxia patient will be admitted for further management. Patient is also receiving 1 unit of PRBC Review of Systems Review of Systems: Yes all other systems are reviewed and are negative [facility] Medical History (Updated 05/06/22 @ 06:32 by Taryn Jones MD) Depression with anxiety Prostate cancer Family History (Updated 05/06/22 @ 06:33 by Taryn Jones MD) Other No family history of coronary artery disease Surgical History (Updated 05/06/22 @ 06:33 by Taryn Jones MD) No pertinent past surgical history Social History Advance Directives: Yes Advance Directives Information Provided: Yes Advance Directives on File: No Meds Allergies Allergy/AdvReac Type Severity Reaction Status Date / Time No Known Allergies Allergy Unverified 06/12/20 18:16 Active Medications: Current Medications Pharmacy Consult (Consult Rx Perform Med Rec) 1 each MISCELLANE ONCE PRN PRN Reason: Consult order Home Medications Medication Instructions Recorded Confirmed Last Taken Type B-complex with vitamin C 1 tab PO DAILY 05/05/22 05/05/22 Unknown History calcium carbonate 500 mg-vitamin 1 tab PO DAILY 05/05/22 05/05/22 Unknown History D3 10 mcg (400 unit) tablet (Oyster Shell Calcium-Vitamin D3) cholecalciferol (vitamin D3) 50 1 cap PO DAILY 05/05/22 05/05/22 Unknown History mcg (2,000 unit) capsule meloxicam 15 mg tablet 1 tab PO DAILY 05/05/22 05/05/22 Unknown History mirtazapine 15 mg tablet 1 tab PO BEDTIME 05/05/22 05/05/22 Unknown History paroxetine HCl 10 mg tablet 1 tab PO DAILY 05/05/22 05/05/22 Unknown History tamsulosin 0.4 mg capsule 1 cap PO DAILY 05/05/22 05/05/22 Unknown History tizanidine 2 mg tablet 1 tab PO BEDTIME 05/05/22 05/05/22 Unknown History tolterodine 4 mg capsule,extended 1 cap PO DAILY 05/05/22 05/05/22 Unknown History release 24 hr Physical Exam Vital Signs and Narrative: Vital Signs: Last Vital Signs Temp 99.9 F 05/05/22 20:08 Pulse 72 05/05/22 20:08 Resp 20 05/05/22 20:08 BP 129/66 05/05/22 20:08 Pulse Ox 98 05/05/22 20:08 O2 Del Method 05/05/22 20:08 O2 Flow Rate 1 05/05/22 17:23 BMI result Body Mass Index 23.8 Const: General: cooperative and no acute distress Orientation/consciousness: patient oriented x3 Eyes: General: appearance normal, both eyes and all related structures Pupils: Equal, round and reactive pupils present Resp: Effort & Inspection: normal respiratory effort Auscultation: clear to auscultation bilaterally Cardio: Rate: regular rate Rhythm: regular rhythm GI: Palpation (GI): Soft to palpation Auscultation: normal bowel sounds Skin: General skin exam: no rashes or lesions noted Neuro: General: patient oriented x3 Cranial nerves: Yes Equal, round and reactive pupils present Cognition (Neuro): normal cognition Extrem: General: Yes normal to inspection and Yes no pedal edema Results Labs CBC and Chem 7: 05/06/22 03:42 05/06/22 03:42 Labs: Laboratory Results - last 24 hr 05/05/22 05/05/22 05/05/22 17:10 17:10 17:10 MCV 66.1 L MCH 18.5 L MCHC 28.0 L RDW 23.9 H Plt Count 223 MPV 8.4 L Immature Gran % (Auto) 0.4 Neut % (Auto) 67.3 Lymph % (Auto) 14.7 L [place] % (Auto) 15.2 H Eos % (Auto) 1.5 Baso % (Auto) 0.9 Lymph # (Auto) 0.7 L [place] # (Auto) 0.7 Eos # (Auto) 0.1 Baso # (Auto) 0.0 Abs Immat Gran (auto) 0.02 Absolute Neuts (auto) 3.1 Absolute Nucleated RBC 0.000 Nucleated RBC % (auto) 0.0 PT INR D-Dimer High Sensitivty Anion Gap 13 Estim Creat Clear Calc 45.4 Estimated GFR > 60 Random Glucose 84 Lactic Acid Calcium 8.8 Magnesium 2.2 Ferritin Cancelled Total Bilirubin 0.2 Direct Bilirubin < 0.2 AST 29 ALT 15 Alkaline Phosphatase 64 Lactate Dehydrogenase 261 B-Natriuretic Peptide Total Protein 6.3 L Albumin 3.6 Lipase 41 Procalcitonin Stool Occult Blood COVID-19 (TOBI) COVID-19 Clin Com Blood Type Antibody Screen Crossmatch 05/05/22 05/05/22 05/05/22 17:10 17:10 17:11 MCV MCH MCHC RDW Plt Count MPV Immature Gran % (Auto) Neut % (Auto) Lymph % (Auto) [place] % (Auto) Eos % (Auto) Baso % (Auto) Lymph # (Auto) [place] # (Auto) Eos # (Auto) Baso # (Auto) Abs Immat Gran (auto) Absolute Neuts (auto) Absolute Nucleated RBC Nucleated RBC % (auto) PT INR D-Dimer High Sensitivty Anion Gap Estim Creat Clear Calc Estimated GFR Random Glucose Lactic Acid Calcium Magnesium Ferritin Total Bilirubin Direct Bilirubin AST ALT Alkaline Phosphatase Lactate Dehydrogenase B-Natriuretic Peptide 190 H Total Protein Albumin Lipase Procalcitonin 0.05 Stool Occult Blood COVID-19 (TOBI) Positive A COVID-19 Clin Com See Note Blood Type Antibody Screen Crossmatch 05/05/22 05/05/22 05/05/22 17:56 17:56 17:56 MCV MCH MCHC RDW Plt Count MPV Immature Gran % (Auto) Neut % (Auto) Lymph % (Auto) [place] % (Auto) Eos % (Auto) Baso % (Auto) Lymph # (Auto) [place] # (Auto) Eos # (Auto) Baso # (Auto) Abs Immat Gran (auto) Absolute Neuts (auto) Absolute Nucleated RBC Nucleated RBC % (auto) PT 11.6 INR 1.0 D-Dimer High Sensitivty 290 Anion Gap Estim Creat Clear Calc Estimated GFR Random Glucose Lactic Acid 1.6 Calcium Magnesium Ferritin Total Bilirubin Direct Bilirubin AST ALT Alkaline Phosphatase Lactate Dehydrogenase B-Natriuretic Peptide Total Protein Albumin Lipase Procalcitonin Stool Occult Blood COVID-19 (TOBI) COVID-19 [employer] Com Blood Type O Positive Antibody Screen NEGATIVE Crossmatch See Detail 05/05/22 19:44 MCV MCH MCHC RDW Plt Count MPV Immature Gran % (Auto) Neut % (Auto) Lymph % (Auto) [place] % (Auto) Eos % (Auto) Baso % (Auto) Lymph # (Auto) [place] # (Auto) Eos # (Auto) Baso # (Auto) Abs Immat Gran (auto) Absolute Neuts (auto) Absolute Nucleated RBC Nucleated RBC % (auto) PT INR D-Dimer High Sensitivty Anion Gap Estim Creat Clear Calc Estimated GFR Random Glucose Lactic Acid Calcium Magnesium Ferritin Total Bilirubin Direct Bilirubin AST ALT Alkaline Phosphatase Lactate Dehydrogenase B-Natriuretic Peptide Total Protein Albumin Lipase Procalcitonin Stool Occult Blood NEGATIVE COVID-19 (TOBI) COVID-19 [employer] Com Blood Type Antibody Screen Crossmatch Imaging Radiologist's Impressions: Impressions Chest X-Ray 05/05/22 16:32 IMPRESSION: No acute abnormality of chest. Cervical Spine CT 05/05/22 17:15 IMPRESSION: 1. No intracranial hemorrhage, calvarial fracture, or other acute intracranial abnormality. 2. No traumatic subluxation or acute cervical spine fracture. 3. Severe multilevel cervical spondylosis with moderate to severe and/or degrees of multilevel central spinal canal stenosis. 4. Widening of the atlantodens interval with resultant narrowing of the spinal canal diameter at C1-C2 suggesting injury or chronic laxity of the transverse ligament. Findings were present on prior MRI of 2011, and may have worsened only slightly. Head CT 05/05/22 17:15 IMPRESSION: 1. No intracranial hemorrhage, calvarial fracture, or other acute intracranial abnormality. 2. No traumatic subluxation or acute cervical spine fracture. 3. Severe multilevel cervical spondylosis with moderate to severe and/or degrees of multilevel central spinal canal stenosis. 4. Widening of the atlantodens interval with resultant narrowing of the spinal canal diameter at C1-C2 suggesting injury or chronic laxity of the transverse ligament. Findings were present on prior MRI of 2011, and may have worsened only slightly. Abdomen/Pelvis CT 05/05/22 18:35 IMPRESSION: 1. No acute intra-abdominal disease. 2. Incidental note made of a left inguinal hernia with a small amount of fat and fluid within the sac and an associated large left hydrocele. Fleischner guidelines were followed. Chest CTA 05/05/22 18:35 IMPRESSION: No pulmonary emboli are detected VTE: negative Assessment and Plan (1) Microcytic anemia: Status: Acute (2) Acute respiratory failure with hypoxia: Status: Acute (3) COVID-19: Status: Acute Plan 81-year-old male with past medical history of prostate cancer, depression anxiety presents to the hospital with complaints of generalized weakness, cough, sputum production found to have COVID-19 infection as well as anemia # acute hypoxic respiratory failure - secondary to COVID-19 infection - CT angiogram negative for PE and no evidence of infiltrates - patient placed on oxygen - will start him on dexamethasone - breathing treatments p.r.n. - monitor respiratory status # microcytic anemia - unclear chronicity - denies any melena, hematochezia - has negative for occult stool - will obtain iron studies - status post 1 unit of PRBC transfusion - follow CBC, with threshold to transfuse at hemoglobin of 7 # COVID-19 infection - ports being vaccinated x2 but not sure which vaccine - given his hypoxia will administer dexamethasone - symptoms for 1 week # history of prostate cancer 0 continue tamsulosin # anxiety depression - continue paroxetine and mirtazapine DVT prophylaxis: Lovenox as patient has no evidence of GI bleed Given his acute hypoxic respiratory failure need for oxygen patient will be admitted for further management and monitoring Quality Stroke Does the patient have a stroke diagnosis?: No VTE Prior VTE?: No VTE Risk Level:: Medical - moderate - high VTE Device Contraindication: Treatment Not Indicated VTE Drug Contraindication: N/A - Med Ordered
[2022-05-05] MEDS: Mirtazapine 15 MG TABLET PO (22:19)
[2022-05-05] MEDS: TiZANidine HCL 4 MG TABLET 2 MG PO (22:19)
[2022-05-05 23:00] LABS: Iron 121 mcg/dL (45-160); Percent Iron Saturation 27 % (15-50); Total Iron Binding Capacity 445 mcg/dL (228-428); Unsaturated Iron Binding 324 ug/dL
[2022-05-05 23:19] LABS: Ferritin 6 ng/mL (20-250)
[2022-05-06 04:26] LABS: Basophils Percent Auto 0.8 % (0-2); Eosinophils Percent Auto 0.2 % (0-4); Hematocrit 29.5 % (42.0-52.0); Hemoglobin 8.8 g/dl (14.0-18.0); Imm Gran Abs Auto 0.02 X10*3/uL (0.00-0.03); Imm Gran Pct Auto 0.4 % (0.0-0.4); Lymphocytes Absolute Auto 0.7 X10*3/uL (1.2-4.9); Lymphocytes Percent Auto 13.6 % (20-40); MANUAL DIFF FLAG NO; Mean Corpuscular HGB Conc 29.8 g/dl (31.0-36.0); Mean Corpuscular Hemoglobin 20.1 pg (27.0-33.0); Mean Corpuscular Volume 67.4 fL (80.0-98.0); Monocytes Absolute Auto 0.3 X10*3/uL (0.1-1.2); Monocytes Percent Auto 5.9 % (2-11); Neutrophils Percent Auto 79.1 % (45-73); Platelet Count 224 X10*3/uL (160-400); Red Blood Count 4.38 X10*6/uL (4.60-5.80); Red Cell Distribution Width 24.7 % (11.0-16.0); White Blood Count 5.1 X10*3/uL (4.8-10.8)
[2022-05-06 04:43] LABS: Anion Gap 12 (12-20); Blood Urea Nitrogen 16 mg/dL (9-16); Calcium 8.5 mg/dL (8.4-10.2); Carbon Dioxide 26 mmol/L (22-29); Chloride 104 mmol/L (96-108); Creatinine Clr Calc Pharmacy 51.2; Estimated Glomerular Filt Rate > 60; Glucose Random 129 mg/dL (60-115); Potassium 4.2 mmol/L (3.3-5.1); Sodium 138 mmol/L (135-145)
[2022-05-06 06:43] VITALS: BP 135/64; PULSE 66
[2022-05-06] MEDS: Tamsulosin HCL 0.4 MG CAPSULE PO (09:23)
[2022-05-06] MEDS: Cholecalciferol (Vitamin D3) 25 MCG TABLET 50 MCG PO (09:23)
[2022-05-06] MEDS: Tolterodine Tartrate LA 4 MG CAP.ER.24H PO (09:24)
[2022-05-06] MEDS: Multivitamin TABLET 1 TAB PO (09:24)
[2022-05-06] MEDS: PARoxetine HCL 10 MG TABLET PO (09:24)
[2022-05-06] MEDS: 0.9 % Sodium Chloride Flush 3 ML SYRINGE IVFLUSH ×2 (09:26→16:01)
[2022-05-06] MEDS: dexAMETHasone sod phosphate 4 MG/ML VIAL 6 MG IVPUSH (09:26)
[2022-05-06 09:33] VITALS: BP 126/86; PULSE 61; TEMP 36.9
[2022-05-06 11:56] LABS: Alanine Aminotransferase 16 U/L (0-40); Aspartate Amino Transferase 25 U/L (5-37)
--- NOTE | 2022-05-06 11:59 | HO.PM.IMPN ---
Subjective Subjective Date of Service: 05/06/22 Interval History: This history was taken in Setswana from the patient. Pt notes he became weak/dizzy about 1 week ago but did not develop cough or congestion until 1 day prior to admission. Currently denies dyspnea and states dizziness has improved. No chest pain. Tolerated transfusion of 1u pRBCs Review of Systems Review of Systems: Yes all other systems are reviewed and are negative Physical Exam Vital Signs: Vital Signs: Last Vital Signs Temp 98.4 F 05/06/22 09:33 Pulse 61 05/06/22 09:33 Resp 21 H 05/05/22 22:16 BP 126/86 05/06/22 09:33 Pulse Ox 100 05/05/22 22:16 O2 Del Method 05/05/22 22:16 O2 Flow Rate 1 05/05/22 17:23 BMI result Body Mass Index 23.8 Gen: in no acute distress HEENT: sclera anicteric, moist mucus membranes Neck: supple Lungs: clear to auscultation bilaterally Heart: regular rate and rhythm, no murmurs Abd: soft, non-tender, non-distended Ext: no edema Skin: warm/well-perfused Neuro: alert and oriented x3, no focal findings Psych: appropriate affect Objective Data Active Medications Acetaminophen (Acetaminophen 325 Mg Tablet) 650 mg PO Q6H PRN PRN Reason: Pain, Mild (Pain Scale 1-3) Albuterol/Ipratropium (Albuterol/Iprat 2.5/0.5mg 3 Ml Ampul.Neb) 3 ml INHALE Q4H PRN PRN Reason: Shortness of Breath/Wheezing Dexamethasone Sodium Phosphate (Dexamethasone Sod Phosphate 4 Mg/Ml Vial) 6 mg IVPUSH DAILY [facility] Last Admin: 05/06/22 09:26 Dose: 6 mg Documented By: EVIN Docusate Sodium (Docusate Sodium 100 Mg Capsule) 100 mg PO DAILY PRN PRN Reason: Constipation Remdesivir 200 mg/ Sodium (Chloride) 210 mls @ 105 mls/hr IV ONCE ONE Stop: 05/06/22 13:59 Remdesivir 100 mg/ Sodium (Chloride) 230 mls @ 115 mls/hr IV Q24H [facility] Stop: 05/10/22 13:59 Mirtazapine (Mirtazapine 15 Mg Tablet) 15 mg PO BEDTIME [facility] Last Admin: 05/05/22 22:19 Dose: 15 mg Documented By: DAVEY Multivitamins/Vitamin C (Multivitamin Tablet) 1 tab PO DAILY [facility] Last Admin: 05/06/22 09:24 Dose: 1 tab Documented By: EVIN Ondansetron HCl (Ondansetron Hcl 4 Mg/2 Ml Vial) 4 mg IVPUSH Q8H PRN PRN Reason: Nausea and Vomiting Paroxetine HCl (Paroxetine Hcl 10 Mg Tablet) 10 mg PO DAILY [facility] Last Admin: 05/06/22 09:24 Dose: 10 mg Documented By: EVIN Pharmacy Consult (Consult Rx Perform Med Rec) 1 each MISCELLANE ONCE PRN PRN Reason: Consult order Sodium Chloride (0.9 % Sodium Chloride Flush 3 Ml Syringe) 3 ml IVFLUSH QSHIFT [facility] Last Admin: 05/06/22 09:26 Dose: 3 ml Documented By: EVIN Tamsulosin HCl (Tamsulosin Hcl 0.4 Mg Capsule) 0.4 mg PO DAILY [facility] Last Admin: 05/06/22 09:23 Dose: 0.4 mg Documented By: EVIN Tizanidine HCl (Tizanidine Hcl 4 Mg Tablet) 2 mg PO BEDTIME [facility] Last Admin: 05/05/22 22:19 Dose: 2 mg Documented By: DAVEY Tolterodine Tartrate (Tolterodine Tartrate La 4 Mg Cap.Er.24h) 4 mg PO DAILY [facility] Last Admin: 05/06/22 09:24 Dose: 4 mg Documented By: EVIN Vitamin D (Cholecalciferol (Vitamin D3) 25 Mcg Tablet) 50 mcg PO DAILY [facility] Last Admin: 05/06/22 09:23 Dose: 50 mcg Documented By: EVIN Labs CBC & Chem 7: 05/06/22 03:42 05/06/22 03:42 Labs: Laboratory Results - last 24 hr 05/05/22 05/05/22 05/05/22 17:10 17:10 17:10 MCV 66.1 L MCH 18.5 L MCHC 28.0 L RDW 23.9 H Plt Count 223 MPV 8.4 L Immature Gran % (Auto) 0.4 Neut % (Auto) 67.3 Lymph % (Auto) 14.7 L Perkins % (Auto) 15.2 H Eos % (Auto) 1.5 Baso % (Auto) 0.9 Lymph # (Auto) 0.7 L Perkins # (Auto) 0.7 Eos # (Auto) 0.1 Baso # (Auto) 0.0 Abs Immat Gran (auto) 0.02 Absolute Neuts (auto) 3.1 Absolute Nucleated RBC 0.000 Nucleated RBC % (auto) 0.0 PT INR D-Dimer High Sensitivty Anion Gap 13 Estim Creat Clear Calc 45.4 Estimated GFR > 60 Random Glucose 84 Lactic Acid Calcium 8.8 Magnesium 2.2 Iron TIBC % Saturation Unsat Iron Binding Ferritin Cancelled Total Bilirubin 0.2 Direct Bilirubin < 0.2 AST 29 ALT 15 Alkaline Phosphatase 64 Lactate Dehydrogenase 261 B-Natriuretic Peptide Total Protein 6.3 L Albumin 3.6 Lipase 41 Procalcitonin Stool Occult Blood COVID-19 (OTBI) COVID-19 Clin Com Blood Type Antibody Screen Crossmatch 05/05/22 05/05/22 05/05/22 17:10 17:10 17:11 MCV MCH MCHC RDW Plt Count MPV Immature Gran % (Auto) Neut % (Auto) Lymph % (Auto) Perkins % (Auto) Eos % (Auto) Baso % (Auto) Lymph # (Auto) Perkins # (Auto) Eos # (Auto) Baso # (Auto) Abs Immat Gran (auto) Absolute Neuts (auto) Absolute Nucleated RBC Nucleated RBC % (auto) PT INR D-Dimer High Sensitivty Anion Gap Estim Creat Clear Calc Estimated GFR Random Glucose Lactic Acid Calcium Magnesium Iron TIBC % Saturation Unsat Iron Binding Ferritin Total Bilirubin Direct Bilirubin AST ALT Alkaline Phosphatase Lactate Dehydrogenase B-Natriuretic Peptide 190 H Total Protein Albumin Lipase Procalcitonin 0.05 Stool Occult Blood COVID-19 (TOBI) Positive A COVID-19 Clin Com See Note Blood Type Antibody Screen Crossmatch 05/05/22 05/05/22 05/05/22 17:56 17:56 17:56 MCV MCH MCHC RDW Plt Count MPV Immature Gran % (Auto) Neut % (Auto) Lymph % (Auto) Perkins % (Auto) Eos % (Auto) Baso % (Auto) Lymph # (Auto) Perkins # (Auto) Eos # (Auto) Baso # (Auto) Abs Immat Gran (auto) Absolute Neuts (auto) Absolute Nucleated RBC Nucleated RBC % (auto) PT 11.6 INR 1.0 D-Dimer High Sensitivty 290 Anion Gap Estim Creat Clear Calc Estimated GFR Random Glucose Lactic Acid 1.6 Calcium Magnesium Iron TIBC % Saturation Unsat Iron Binding Ferritin Total Bilirubin Direct Bilirubin AST ALT Alkaline Phosphatase Lactate Dehydrogenase B-Natriuretic Peptide Total Protein Albumin Lipase Procalcitonin Stool Occult Blood COVID-19 (TOBI) COVID-19 Clin Com Blood Type O Positive Antibody Screen NEGATIVE Crossmatch See Detail 05/05/22 05/05/22 05/06/22 19:44 22:38 03:42 MCV 67.4 L MCH 20.1 L MCHC 29.8 L RDW 24.7 H Plt Count 224 MPV 9.0 L Immature Gran % (Auto) 0.4 Neut % (Auto) 79.1 H Lymph % (Auto) 13.6 L Perkins % (Auto) 5.9 Eos % (Auto) 0.2 Baso % (Auto) 0.8 Lymph # (Auto) 0.7 L Perkins # (Auto) 0.3 Eos # (Auto) 0.0 Baso # (Auto) 0.0 Abs Immat Gran (auto) 0.02 Absolute Neuts (auto) 4.0 Absolute Nucleated RBC 0.000 Nucleated RBC % (auto) 0.0 PT INR D-Dimer High Sensitivty Anion Gap Estim Creat Clear Calc Estimated GFR Random Glucose Lactic Acid Calcium Magnesium Iron 121 TIBC 445 H % Saturation 27 Unsat Iron Binding 324 Ferritin 6 L Total Bilirubin Direct Bilirubin AST ALT Alkaline Phosphatase Lactate Dehydrogenase B-Natriuretic Peptide Total Protein Albumin Lipase Procalcitonin Stool Occult Blood NEGATIVE COVID-19 (TOBI) COVID-19 [facility] Com Blood Type Antibody Screen Crossmatch 05/06/22 05/06/22 03:42 11:25 MCV MCH MCHC RDW Plt Count MPV Immature Gran % (Auto) Neut % (Auto) Lymph % (Auto) Perkins % (Auto) Eos % (Auto) Baso % (Auto) Lymph # (Auto) Perkins # (Auto) Eos # (Auto) Baso # (Auto) Abs Immat Gran (auto) Absolute Neuts (auto) Absolute Nucleated RBC Nucleated RBC % (auto) PT INR D-Dimer High Sensitivty Anion Gap 12 Estim Creat Clear Calc 51.2 Estimated GFR > 60 Random Glucose 129 H D Lactic Acid Calcium 8.5 Magnesium Iron TIBC % Saturation Unsat Iron Binding Ferritin Total Bilirubin Direct Bilirubin AST 25 ALT 16 Alkaline Phosphatase Lactate Dehydrogenase B-Natriuretic Peptide Total Protein Albumin Lipase Procalcitonin Stool Occult Blood COVID-19 (TOBI) COVID-19 Clin Com Blood Type Antibody Screen Crossmatch Assessment and Plan (1) Acute respiratory failure with hypoxia: Status: Acute (2) COVID-19: Status: Acute (3) Microcytic anemia: Status: Acute Plan hospital d#2 81yo M with hx prostate CA, mood disorder, vaccinated against Covid-19 presenting with weakness/lightheadedness x 1 wk and cough x1d admitted for hypoxia, Covid-19 infection, and severe FIDELINA # Covid-19 infection - remdesivir d#1/5 given onset within 7d, dexamethasone d#2/10 given hypoxia, trend inflammatory markers, maintain isolation, O2 as below # acute hypoxic resp failure - wean O2 as tolerated # FIDELINA - Hb improved p 1u pRBCs. unclear cause- FOBT negative and pt eats a varied diet. will obtain lab records from his primary care office [[facility]]. start Fe repletion # prostatism - continue tamsulosin, tolterodine # mood disorder - continue paroxetine + mirtazapine # VTE ppx: LMWH In my clinical judgment, the patient requires continued hospitalization for the following reasons: hypoxia due to severe Covid-19 infection Quality Stroke Does the patient have a stroke diagnosis?: No VTE Prior VTE?: No VTE Risk Level:: Medical - moderate - high VTE Device Contraindication: Treatment Not Indicated VTE Drug Contraindication: N/A - Med Ordered
[2022-05-06] MEDS: Remdesivir 200 MG in 0.9 % Sodium Chloride 210 ML 105 MG IV (13:01)
[2022-05-06] MEDS: Ferrous Sulfate 324 MG TABLET.DR PO (13:07)
[2022-05-06 13:11] LABS: C Reactive Protein 1.81 mg/dL (< or = 0.50)
--- NOTE | 2022-05-06 15:17 | PC.NURSE ---
PT WAS PLACED IN A HOSPITAL BED AWAITING ADMISSION TO FLOOR. HE HAS NO ACUTE SOB AND IS TAKING PO INTAKE APPROPRIATELY.
[2022-05-06 15:56] VITALS: BP 124/58; PULSE 69; RESP 18; TEMP 37.1; O2SAT 99
[2022-05-06] MEDS: TiZANidine HCL 4 MG TABLET 2 MG PO (21:27)
[2022-05-06] MEDS: Mirtazapine 15 MG TABLET PO (21:27)
[2022-05-06 21:36] VITALS: BP 131/62; PULSE 73; RESP 20; TEMP 36.9; O2SAT 97
[2022-05-07] VITALS: BP 125/72; PULSE 85; RESP 12; TEMP 36.7; O2SAT 99
[2022-05-07 02:45] VITALS: BP 142/67; PULSE 82; RESP 16; O2SAT 95
[2022-05-07 02:47] VITALS: TEMP 36.7
--- NOTE | 2022-05-07 04:08 | PC.NURSE ---
pt note secondary to pt care, to note pt found by EDT kneeling on the ground, EDT helped pt back to bed, this RN and EDT asked pt what happened and if he fell, per pt I didn't fall, i got out of bed to look for the urinal but then i realized it was on the side of the bed, i didn't have the strenght to get back up into bed pt VSS, all safety maintained.
[2022-05-07 07:00] LABS: Hematocrit 35.1 % (42.0-52.0); Hemoglobin 10.1 g/dl (14.0-18.0); Mean Corpuscular HGB Conc 28.8 g/dl (31.0-36.0); Mean Corpuscular Volume 69.6 fL (80.0-98.0); Mean Platelet Volume 9.4 fL (9.4-12.4); Platelet Count 242 X10*3/uL (160-400); Red Blood Count 5.04 X10*6/uL (4.60-5.80); Red Cell Distribution Width 25.6 % (11.0-16.0); White Blood Count 9.3 X10*3/uL (4.8-10.8)
[2022-05-07 07:34] LABS: Anion Gap 18 (12-20); Blood Urea Nitrogen 19 mg/dL (9-16); Calcium 9.1 mg/dL (8.4-10.2); Carbon Dioxide 22 mmol/L (22-29); Chloride 103 mmol/L (96-108); Creatinine Clr Calc Pharmacy 48.1; Estimated Glomerular Filt Rate > 60; Glucose Random 101 mg/dL (60-115); Potassium 4.2 mmol/L (3.3-5.1); Sodium 139 mmol/L (135-145)
[2022-05-07] MEDS: Ferrous Sulfate 324 MG TABLET.DR PO (10:06)
[2022-05-07] MEDS: Tamsulosin HCL 0.4 MG CAPSULE PO (10:06)
[2022-05-07] MEDS: Multivitamin TABLET 1 TAB PO (10:07)
[2022-05-07] MEDS: dexAMETHasone sod phosphate 4 MG/ML VIAL 6 MG IVPUSH (10:07)
[2022-05-07] MEDS: Acetaminophen 325 MG TABLET 650 MG PO (10:07)
[2022-05-07] MEDS: Cholecalciferol (Vitamin D3) 25 MCG TABLET 50 MCG PO (10:07)
[2022-05-07] MEDS: 0.9 % Sodium Chloride Flush 3 ML SYRINGE IVFLUSH ×2 (10:11→20:33)
--- NOTE | 2022-05-07 10:40 | PC.NURSE ---
BED LINEN CHANGED AND WIPED DOWN THEN CLEAN ASHLEIGH PUT ON
--- NOTE | 2022-05-07 11:07 | PC.NURSE ---
alert, denies sob or pain, skin wpd, pt and linens cleaned, report given to [facility] RN and pt brought up by Shahla
[2022-05-07 11:23] VITALS: BP 92/61; PULSE 82; RESP 20; TEMP 37.2; O2SAT 92
--- NOTE | 2022-05-07 12:03 | P.PNIM_ITS ---
Subjective Subjective Date of Service: 05/07/22 Interval History: This history was taken in Persian from the patient. Coughing Dyspnea improved Lightheadedness improved Review of Systems Review of Systems: Yes all other systems are reviewed and are negative Physical Exam Vital Signs: Vital Signs: Last Vital Signs Temp 99.0 F 05/07/22 11:23 Pulse 82 05/07/22 11:23 Resp 20 05/07/22 11:23 BP 92/61 05/07/22 11:23 Pulse Ox 92 05/07/22 11:23 O2 Del Method 05/07/22 11:23 O2 Flow Rate 2 05/07/22 11:23 BMI result Body Mass Index 23.8 Gen: in no acute distress HEENT: sclera anicteric, moist mucus membranes Neck: supple Lungs: clear to auscultation bilaterally Heart: regular rate and rhythm, no murmurs Abd: soft, non-tender, non-distended Ext: no edema Skin: warm/well-perfused Neuro: alert and oriented x3, no focal findings Psych: appropriate affect Objective Data Active Medications Acetaminophen (Acetaminophen 325 Mg Tablet) 650 mg PO Q6H PRN PRN Reason: Pain, Mild (Pain Scale 1-3) Last Admin: 05/07/22 10:07 Dose: 650 mg Documented By: LLOYD Albuterol/Ipratropium (Albuterol/Iprat 2.5/0.5mg 3 Ml Ampul.Neb) 3 ml INHALE Q4H PRN PRN Reason: Shortness of Breath/Wheezing Dexamethasone Sodium Phosphate (Dexamethasone Sod Phosphate 4 Mg/Ml Vial) 6 mg IVPUSH DAILY [facility] Last Admin: 05/07/22 10:07 Dose: 6 mg Documented By: LLOYD Docusate Sodium (Docusate Sodium 100 Mg Capsule) 100 mg PO DAILY PRN PRN Reason: Constipation Ferrous Sulfate (Ferrous Sulfate 324 Mg Tablet.) 324 mg PO DAILY [facility] Last Admin: 05/07/22 10:06 Dose: 324 mg Documented By: LLOYD Remdesivir 100 mg/ Sodium (Chloride) 230 mls @ 115 mls/hr IV Q24H [facility] Stop: 05/10/22 14:59 Mirtazapine (Mirtazapine 15 Mg Tablet) 15 mg PO BEDTIME [facility] Last Admin: 05/06/22 21:27 Dose: 15 mg Documented By: DAVEY Multivitamins/Vitamin C (Multivitamin Tablet) 1 tab PO DAILY [facility] Last Admin: 05/07/22 10:07 Dose: 1 tab Documented By: LLOYD Ondansetron HCl (Ondansetron Hcl 4 Mg/2 Ml Vial) 4 mg IVPUSH Q8H PRN PRN Reason: Nausea and Vomiting Paroxetine HCl (Paroxetine Hcl 10 Mg Tablet) 10 mg PO DAILY [facility] Last Admin: 05/06/22 09:24 Dose: 10 mg Documented By: EVIN Pharmacy Consult (Consult Rx Perform Med Rec) 1 each MISCELLANE ONCE PRN PRN Reason: Consult order Sodium Chloride (0.9 % Sodium Chloride Flush 3 Ml Syringe) 3 ml IVFLUSH QSHIFT [facility] Last Admin: 05/07/22 10:11 Dose: 3 ml Documented By: LLOYD Tamsulosin HCl (Tamsulosin Hcl 0.4 Mg Capsule) 0.4 mg PO DAILY [facility] Last Admin: 05/07/22 10:06 Dose: 0.4 mg Documented By: LLOYD Tizanidine HCl (Tizanidine Hcl 4 Mg Tablet) 2 mg PO BEDTIME [facility] Last Admin: 05/06/22 21:27 Dose: 2 mg Documented By: DAVEY Tolterodine Tartrate (Tolterodine Tartrate La 4 Mg Cap.Er.24h) 4 mg PO DAILY [facility] Last Admin: 05/06/22 09:24 Dose: 4 mg Documented By: EVIN Vitamin D (Cholecalciferol (Vitamin D3) 25 Mcg Tablet) 50 mcg PO DAILY [facility] Last Admin: 05/07/22 10:07 Dose: 50 mcg Documented By: LLOYD Labs CBC & Chem 7: 05/07/22 06:24 05/07/22 06:24 Labs: Laboratory Results - last 24 hr 05/06/22 05/07/22 05/07/22 03:42 06:24 06:24 MCV 69.6 L MCH 20.0 L MCHC 28.8 L RDW 25.6 H Plt Count 242 MPV 9.4 Absolute Nucleated RBC 0.000 Nucleated RBC % (auto) 0.0 Anion Gap 18 Estim Creat Clear Calc 48.1 Estimated GFR > 60 Random Glucose 101 Calcium 9.1 D C-Reactive Protein 1.81 H Microbiology Microbiology Results: Microbiology 05/05/22 22:38 Blood Culture - Preliminary Blood - Venous No growth after 24 hours. 05/05/22 22:38 Blood Culture - Preliminary Blood - Venous No growth after 24 hours. 05/05/22 17:10 Blood Culture - Preliminary Blood - Venous No growth after 24 hours. 05/05/22 17:11 Blood Culture - Preliminary Blood - Venous No growth after 24 hours. Assessment and Plan (1) Acute respiratory failure with hypoxia: Status: Acute (2) COVID-19: Status: Acute (3) Microcytic anemia: Status: Acute Plan hospital d#23 81yo M with hx prostate CA, mood disorder, vaccinated against Covid-19 presenting with weakness/lightheadedness x 1 wk and cough x1d admitted for hypoxia, Covid-19 infection, and severe FIDELINA # Covid-19 infection - remdesivir d#2/5 - dexamethasone d#3/ - trend inflammatory markers # acute hypoxic resp failure - wean O2 as tolerated # FIDELINA - Hb improved p 1u pRBCs. unclear cause- FOBT negative and pt eats a varied diet. will obtain lab records from his primary care office [[facility]]. started Fe repletion # prostatism - continue tamsulosin, tolterodine # mood disorder - continue paroxetine + mirtazapine # VTE ppx: LMWH In my clinical judgment, the patient requires continued hospitalization for the following reasons: hypoxia due to severe Covid-19 infection Quality Stroke Does the patient have a stroke diagnosis?: No VTE Prior VTE?: No VTE Risk Level:: Medical - moderate - high VTE Device Contraindication: Treatment Not Indicated VTE Drug Contraindication: N/A - Med Ordered
[2022-05-07] MEDS: PARoxetine HCL 10 MG TABLET PO (12:32)
[2022-05-07] MEDS: Tolterodine Tartrate LA 4 MG CAP.ER.24H PO (12:32)
[2022-05-07] MEDS: Remdesivir 100 MG in 0.9 % Sodium Chloride 230 ML 115 MG IV (14:14)
--- NOTE | 2022-05-07 15:00 | MHC.CM.PN ---
per rounds pt will not be ready for dc for 1 to 2 days dc plan remains home
[2022-05-07 16:00] VITALS: BP 122/65; PULSE 71; RESP 16; TEMP 37.1; O2SAT 97
[2022-05-07 20:00] VITALS: BP 132/66; PULSE 88; RESP 20; TEMP 37.7; O2SAT 95
[2022-05-07] MEDS: TiZANidine HCL 4 MG TABLET 2 MG PO (20:32)
[2022-05-07] MEDS: Mirtazapine 15 MG TABLET PO (20:32)
[2022-05-08] VITALS (7 sets, daily range): BP systolic 99–156; BP diastolic 53–78; PULSE 70–101; RESP 16–20; TEMP 36.3–37.7; O2SAT 93–97
[2022-05-08 07:57] LABS: C Reactive Protein 7.19 mg/dL (< or = 0.50)
[2022-05-08] MEDS: dexAMETHasone sod phosphate 4 MG/ML VIAL 6 MG IVPUSH (08:50)
[2022-05-08] MEDS: Acetaminophen 325 MG TABLET 650 MG PO (08:50)
[2022-05-08] MEDS: Tamsulosin HCL 0.4 MG CAPSULE PO (08:51)
[2022-05-08] MEDS: Tolterodine Tartrate LA 4 MG CAP.ER.24H PO (08:51)
[2022-05-08] MEDS: 0.9 % Sodium Chloride Flush 3 ML SYRINGE IVFLUSH ×3 (08:51→20:31)
[2022-05-08] MEDS: Ferrous Sulfate 324 MG TABLET.DR PO (08:51)
[2022-05-08] MEDS: Multivitamin TABLET 1 TAB PO (08:51)
[2022-05-08] MEDS: PARoxetine HCL 10 MG TABLET PO (08:51)
[2022-05-08] MEDS: Cholecalciferol (Vitamin D3) 25 MCG TABLET 50 MCG PO (08:51)
--- NOTE | 2022-05-08 12:52 | HO.PM.IMPN ---
Subjective Subjective Date of Service: 05/08/22 Interval History: still coughing + dyspneic + requiring 2L O2 via NC This history was taken in Croatian from the patient. Review of Systems Review of Systems: Yes all other systems are reviewed and are negative Physical Exam Vital Signs: Vital Signs: Last Vital Signs Temp 98.7 F 05/08/22 11:27 Pulse 80 05/08/22 11:27 Resp 16 05/08/22 11:27 BP 103/55 L 05/08/22 11:27 Pulse Ox 93 05/08/22 11:27 O2 Del Method 05/08/22 11:27 O2 Flow Rate 2 05/08/22 11:27 BMI result Body Mass Index 23.8 Gen: in no acute distress HEENT: sclera anicteric, moist mucus membranes Neck: supple Lungs: clear to auscultation bilaterally Heart: regular rate and rhythm, no murmurs Abd: soft, non-tender, non-distended Ext: no edema Skin: warm/well-perfused Neuro: alert and oriented x3, no focal findings Psych: appropriate affect Objective Data Active Medications Acetaminophen (Acetaminophen 325 Mg Tablet) 650 mg PO Q6H PRN PRN Reason: Pain, Mild (Pain Scale 1-3) Last Admin: 05/08/22 08:50 Dose: 650 mg Documented By: MASOUD Albuterol/Ipratropium (Albuterol/Iprat 2.5/0.5mg 3 Ml Ampul.Neb) 3 ml INHALE Q4H PRN PRN Reason: Shortness of Breath/Wheezing Dexamethasone Sodium Phosphate (Dexamethasone Sod Phosphate 4 Mg/Ml Vial) 6 mg IVPUSH DAILY [facility] Last Admin: 05/08/22 08:50 Dose: 6 mg Documented By: MASOUD Docusate Sodium (Docusate Sodium 100 Mg Capsule) 100 mg PO DAILY PRN PRN Reason: Constipation Ferrous Sulfate (Ferrous Sulfate 324 Mg Tablet.) 324 mg PO DAILY [facility] Last Admin: 05/08/22 08:51 Dose: 324 mg Documented By: MASOUD Remdesivir 100 mg/ Sodium (Chloride) 230 mls @ 115 mls/hr IV Q24H [facility] Stop: 05/10/22 14:59 Last Infusion: 05/07/22 16:24 Dose: 115 mls/hr Documented By: GAVIN Mirtazapine (Mirtazapine 15 Mg Tablet) 15 mg PO BEDTIME [facility] Last Admin: 05/07/22 20:32 Dose: 15 mg Documented By: ANTDARLING Multivitamins/Vitamin C (Multivitamin Tablet) 1 tab PO DAILY [facility] Last Admin: 05/08/22 08:51 Dose: 1 tab Documented By: MASOUD Ondansetron HCl (Ondansetron Hcl 4 Mg/2 Ml Vial) 4 mg IVPUSH Q8H PRN PRN Reason: Nausea and Vomiting Paroxetine HCl (Paroxetine Hcl 10 Mg Tablet) 10 mg PO DAILY [facility] Last Admin: 05/08/22 08:51 Dose: 10 mg Documented By: MASOUD Pharmacy Consult (Consult Rx Perform Med Rec) 1 each MISCELLANE ONCE PRN PRN Reason: Consult order Sodium Chloride (0.9 % Sodium Chloride Flush 3 Ml Syringe) 3 ml IVFLUSH QSHIFT [facility] Last Admin: 05/08/22 08:51 Dose: 3 ml Documented By: MASOUD Tamsulosin HCl (Tamsulosin Hcl 0.4 Mg Capsule) 0.4 mg PO DAILY [facility] Last Admin: 05/08/22 08:51 Dose: 0.4 mg Documented By: MASOUD Tizanidine HCl (Tizanidine Hcl 4 Mg Tablet) 2 mg PO BEDTIME [facility] Last Admin: 05/07/22 20:32 Dose: 2 mg Documented By: KELLY Tolterodine Tartrate (Tolterodine Tartrate La 4 Mg Cap.Er.24h) 4 mg PO DAILY [facility] Last Admin: 05/08/22 08:51 Dose: 4 mg Documented By: MASOUD Vitamin D (Cholecalciferol (Vitamin D3) 25 Mcg Tablet) 50 mcg PO DAILY [facility] Last Admin: 05/08/22 08:51 Dose: 50 mcg Documented By: MASOUD Labs CBC & Chem 7: 05/07/22 06:24 05/07/22 06:24 Labs: Laboratory Results - last 24 hr 05/08/22 06:42 C-Reactive Protein 7.19 H Microbiology Microbiology Results: Microbiology 05/05/22 22:38 Blood Culture - Preliminary Blood - Venous No growth after 48 hours. 05/05/22 22:38 Blood Culture - Preliminary Blood - Venous No growth after 48 hours. 05/05/22 17:10 Blood Culture - Preliminary Blood - Venous No growth after 48 hours. 05/05/22 17:11 Blood Culture - Preliminary Blood - Venous No growth after 48 hours. Assessment and Plan (1) Acute respiratory failure with hypoxia: Status: Acute (2) COVID-19: Status: Acute (3) Microcytic anemia: Status: Acute Plan hospital d#4 81yo M with hx prostate CA, mood disorder, vaccinated against Covid-19 presenting with weakness/lightheadedness x 1 wk and cough x1d admitted for hypoxia, Covid-19 infection, and severe FIDELINA # Covid-19 infection - remdesivir d#3/5 - dexamethasone d#/ - trend inflammatory markers # acute hypoxic resp failure - wean O2 as tolerated # FIDELINA - Hb improved p 1u pRBCs. unclear cause- FOBT negative and pt eats a varied diet. will obtain lab records from his primary care office [[facility]]. started Fe repletion # prostatism - continue tamsulosin, tolterodine # mood disorder - continue paroxetine + mirtazapine # VTE ppx: LMWH In my clinical judgment, the patient requires continued hospitalization for the following reasons: hypoxia due to severe Covid-19 infection Quality Stroke Does the patient have a stroke diagnosis?: No VTE Prior VTE?: No VTE Risk Level:: Medical - moderate - high VTE Device Contraindication: Treatment Not Indicated VTE Drug Contraindication: N/A - Med Ordered
[2022-05-08] MEDS: Remdesivir 100 MG in 0.9 % Sodium Chloride 230 ML 115 MG IV (13:30)
--- NOTE | 2022-05-08 18:29 | PM.CNGS ---
History of Present Illness Consult details Consult date: 05/08/22 Reason for consult: hernia Narrative: The patient is an 81-year-old gentleman admitted to the medical service with hypoxia from a COVID infection who is noted on CT to have a large left hydrocele and a small related inguinal hernia. Patient speaks only Luxembourgish and a limited interview is performed. Review of Systems Review of Systems: Yes all other systems are reviewed and are negative Constitutional: Constitutional: Reports as per [facility] Past Medical History Medical History (Updated 05/08/22 @ 18:30 by Akira Coker MD) Depression with anxiety Prostate cancer Family History Family History (Updated 05/06/22 @ 06:33 by Taryn Jones MD) Other No family history of coronary artery disease Surgical History Surgical History (Updated 05/06/22 @ 06:33 by Taryn Jones MD) No pertinent past surgical history Social History Social History Household Members: Other Household Members Other:: nephew and nephew's . Housing: House Do you presently have visiting nurse or other home services: Yes (admission done with assembler skylights. pt stated he gets [facility] 1 x a month.) Patient Tobacco Use Status: Former Tobacco user Advance Directives Date on File: 05/05/22 Meds Allergies Allergy/AdvReac Type Severity Reaction Status Date / Time No Known Allergies Allergy Unverified 06/12/20 18:16 Active Medications: Current Medications Acetaminophen (Acetaminophen 325 Mg Tablet) 650 mg PO Q6H PRN PRN Reason: Pain, Mild (Pain Scale 1-3) Last Admin: 05/08/22 08:50 Dose: 650 mg Albuterol/Ipratropium (Albuterol/Iprat 2.5/0.5mg 3 Ml Ampul.Neb) 3 ml INHALE Q4H PRN PRN Reason: Shortness of Breath/Wheezing Dexamethasone Sodium Phosphate (Dexamethasone Sod Phosphate 4 Mg/Ml Vial) 6 mg IVPUSH DAILY ON [facility] OF [facility] Last Admin: 05/08/22 08:50 Dose: 6 mg Docusate Sodium (Docusate Sodium 100 Mg Capsule) 100 mg PO DAILY PRN PRN Reason: Constipation Ferrous Sulfate (Ferrous Sulfate 324 Mg Tablet.) 324 mg PO DAILY ON [facility] Last Admin: 05/08/22 08:51 Dose: 324 mg Remdesivir 100 mg/ Sodium (Chloride) 230 mls @ 115 mls/hr IV Q24H ON [facility] OF [facility] Stop: 05/10/22 14:59 Last Infusion: 05/08/22 16:50 Dose: Infused Mirtazapine (Mirtazapine 15 Mg Tablet) 15 mg PO BEDTIME ON [facility] OF [facility] Last Admin: 05/07/22 20:32 Dose: 15 mg Multivitamins/Vitamin C (Multivitamin Tablet) 1 tab PO DAILY ON [facility] Last Admin: 05/08/22 08:51 Dose: 1 tab Ondansetron HCl (Ondansetron Hcl 4 Mg/2 Ml Vial) 4 mg IVPUSH Q8H PRN PRN Reason: Nausea and Vomiting Paroxetine HCl (Paroxetine Hcl 10 Mg Tablet) 10 mg PO DAILY [facility] Last Admin: 05/08/22 08:51 Dose: 10 mg Pharmacy Consult (Consult Rx Perform Med Rec) 1 each MISCELLANE ONCE PRN PRN Reason: Consult order Sodium Chloride (0.9 % Sodium Chloride Flush 3 Ml Syringe) 3 ml IVFLUSH QSHIFT ON [facility] OF [facility] Last Admin: 05/08/22 15:35 Dose: 3 ml Tamsulosin HCl (Tamsulosin Hcl 0.4 Mg Capsule) 0.4 mg PO DAILY [facility] Last Admin: 05/08/22 08:51 Dose: 0.4 mg Tizanidine HCl (Tizanidine Hcl 4 Mg Tablet) 2 mg PO BEDTIME ON [facility] Last Admin: 05/07/22 20:32 Dose: 2 mg Tolterodine Tartrate (Tolterodine Tartrate La 4 Mg Cap.Er.24h) 4 mg PO DAILY [facility] Last Admin: 05/08/22 08:51 Dose: 4 mg Vitamin D (Cholecalciferol (Vitamin D3) 25 Mcg Tablet) 50 mcg PO DAILY ON [facility] Last Admin: 05/08/22 08:51 Dose: 50 mcg Home Medications Medication Instructions Recorded Confirmed Last Taken Type B-complex with vitamin C 1 tab PO DAILY 05/05/22 05/05/22 Unknown History calcium carbonate 500 mg-vitamin 1 tab PO DAILY 05/05/22 05/05/22 Unknown History D3 10 mcg (400 unit) tablet (Oyster Shell Calcium-Vitamin D3) cholecalciferol (vitamin D3) 50 1 cap PO DAILY 05/05/22 05/05/22 Unknown History mcg (2,000 unit) capsule meloxicam 15 mg tablet 1 tab PO DAILY 05/05/22 05/05/22 Unknown History mirtazapine 15 mg tablet 1 tab PO BEDTIME 05/05/22 05/05/22 Unknown History paroxetine HCl 10 mg tablet 1 tab PO DAILY 05/05/22 05/05/22 Unknown History tamsulosin 0.4 mg capsule 1 cap PO DAILY 05/05/22 05/05/22 Unknown History tizanidine 2 mg tablet 1 tab PO BEDTIME 05/05/22 05/05/22 Unknown History tolterodine 4 mg capsule,extended 1 cap PO DAILY 05/05/22 05/05/22 Unknown History release 24 hr Physical Exam Vital Signs: Vital Signs: Last Vital Signs Temp 98.3 F 05/08/22 15:18 Pulse 70 05/08/22 15:18 Resp 18 05/08/22 15:18 BP 120/60 05/08/22 15:18 Pulse Ox 93 05/08/22 15:18 O2 Del Method 05/08/22 15:18 O2 Flow Rate 2 05/08/22 15:18 BMI result Body Mass Index 23.8 The patient is non-toxic & in good spirits NC/AT, PERRLA, EOMI Heart is regular, normal S1-S2 no rubs or murmurs Lungs are clear and equal anteriorly with no audible wheezing, rubs or dullness to percussion No CVA tenderness present Abdomen is overweight with no demonstrable hernias. No HSM, rebound, rigidity, guarding, masses or bruits are present. The patient has a large left hydrocele that is prevented me from adequately examining his hernia that was noted on CT. There is no skin breakdown, infection and it is nontender Rectal exam is deferred Skin has good turgor and is free of rashes Extremities free of cyanosis clubbing edema Results Labs Result diagrams: 05/07/22 06:24 05/07/22 06:24 Labs: Abnormal lab results 05/08/22 Range/Units 06:42 C-Reactive Protein 7.19 H (< or = 0.50) mg/dL All other labs normal. Imaging Abdomen CT scan report/results: report reviewed and image reviewed CT scan - pelvis: report reviewed and image reviewed Assessment and Plan (1) Hydrocele, left: Status: Acute (2) Left inguinal hernia: Status: Acute (3) Acute respiratory failure with hypoxia: Status: Acute (4) COVID-19: Status: Acute Plan The bulk of the left scrotal bulge is related to the patient's left hydrocele, not his hernia. On CT, the hernia is small and likely incidental since it cannot be palpated on exam due to the large hydrocele. There is no bowel in it. Would recommend urology treat the patient symptomatically on an outpatient basis regarding the hydrocele after his COVID issues are resolved. Please note that the large left scrotal swelling is the hydrocele and not his hernia. Please call me with any surgical questions. Thank you for asking me to participate in his care. Procedures Date of Service Date of Service: 05/08/22
[2022-05-08] MEDS: TiZANidine HCL 4 MG TABLET 2 MG PO (20:30)
[2022-05-08] MEDS: Mirtazapine 15 MG TABLET PO (20:30)
[2022-05-09 04:00] VITALS: BP 134/62; PULSE 62; RESP 16; TEMP 35.7; O2SAT 98
[2022-05-09 07:59] VITALS: BP 125/60; PULSE 59; RESP 20; TEMP 36.2; O2SAT 100
[2022-05-09] MEDS: dexAMETHasone sod phosphate 4 MG/ML VIAL 6 MG IVPUSH (09:47)
[2022-05-09] MEDS: 0.9 % Sodium Chloride Flush 3 ML SYRINGE IVFLUSH ×3 (09:47→21:14)
[2022-05-09] MEDS: Ferrous Sulfate 324 MG TABLET.DR PO (09:48)
[2022-05-09] MEDS: Cholecalciferol (Vitamin D3) 25 MCG TABLET 50 MCG PO (09:48)
[2022-05-09] MEDS: PARoxetine HCL 10 MG TABLET PO (09:48)
[2022-05-09] MEDS: Tolterodine Tartrate LA 4 MG CAP.ER.24H PO (09:48)
[2022-05-09] MEDS: Tamsulosin HCL 0.4 MG CAPSULE PO (09:48)
[2022-05-09] MEDS: Multivitamin TABLET 1 TAB PO (09:48)
--- NOTE | 2022-05-09 11:59 | P.PNIM_ITS ---
Subjective Subjective Date of Service: 05/09/22 Interval History: This history was taken in Telugu from the patient. dyspnea+cough improved tried to wean off O2 by still SaO2 84-87 on RA, placed back on 2L endorses depression, passive thoughts of self-harm but no active plan Review of Systems Review of Systems: Yes all other systems are reviewed and are negative Physical Exam Vital Signs: Vital Signs: Last Vital Signs Temp 97.2 F 05/09/22 07:59 Pulse 59 05/09/22 07:59 Resp 20 05/09/22 07:59 BP 125/60 05/09/22 07:59 Pulse Ox 100 05/09/22 07:59 O2 Del Method 05/09/22 07:59 O2 Flow Rate 2 05/09/22 07:59 BMI result Body Mass Index 23.8 Gen: in no acute distress HEENT: sclera anicteric, moist mucus membranes Neck: supple Lungs: clear to auscultation bilaterally Heart: regular rate and rhythm, no murmurs Abd: soft, non-tender, non-distended : L hydrocele Ext: no edema Skin: warm/well-perfused Neuro: alert and oriented x3, no focal findings Psych: appropriate affect Objective Data Active Medications Acetaminophen (Acetaminophen 325 Mg Tablet) 650 mg PO Q6H PRN PRN Reason: Pain, Mild (Pain Scale 1-3) Last Admin: 05/08/22 08:50 Dose: 650 mg Documented By: MASOUD Albuterol/Ipratropium (Albuterol/Iprat 2.5/0.5mg 3 Ml Ampul.Neb) 3 ml INHALE Q4H PRN PRN Reason: Shortness of Breath/Wheezing Dexamethasone Sodium Phosphate (Dexamethasone Sod Phosphate 4 Mg/Ml Vial) 6 mg IVPUSH DAILY [facility] Last Admin: 05/09/22 09:47 Dose: 6 mg Documented By: MASOUD Docusate Sodium (Docusate Sodium 100 Mg Capsule) 100 mg PO DAILY PRN PRN Reason: Constipation Ferrous Sulfate (Ferrous Sulfate 324 Mg Tablet.) 324 mg PO DAILY [facility] Last Admin: 05/09/22 09:48 Dose: 324 mg Documented By: MASOUD Remdesivir 100 mg/ Sodium (Chloride) 230 mls @ 115 mls/hr IV Q24H [facility] Stop: 05/10/22 14:59 Last Infusion: 05/08/22 16:50 Dose: 0 mls/hr Documented By: MASOUD Mirtazapine (Mirtazapine 15 Mg Tablet) 15 mg PO BEDTIME [facility] Last Admin: 05/08/22 20:30 Dose: 15 mg Documented By: KELLY Multivitamins/Vitamin C (Multivitamin Tablet) 1 tab PO DAILY [facility] Last Admin: 05/09/22 09:48 Dose: 1 tab Documented By: MASOUD Ondansetron HCl (Ondansetron Hcl 4 Mg/2 Ml Vial) 4 mg IVPUSH Q8H PRN PRN Reason: Nausea and Vomiting Paroxetine HCl (Paroxetine Hcl 10 Mg Tablet) 10 mg PO DAILY [facility] Last Admin: 05/09/22 09:48 Dose: 10 mg Documented By: MASOUD Pharmacy Consult (Consult Rx Perform Med Rec) 1 each MISCELLANE ONCE PRN PRN Reason: Consult order Sodium Chloride (0.9 % Sodium Chloride Flush 3 Ml Syringe) 3 ml IVFLUSH QSHIFT [facility] Last Admin: 05/09/22 09:47 Dose: 3 ml Documented By: MASOUD Tamsulosin HCl (Tamsulosin Hcl 0.4 Mg Capsule) 0.4 mg PO DAILY [facility] Last Admin: 05/09/22 09:48 Dose: 0.4 mg Documented By: MASOUD Tizanidine HCl (Tizanidine Hcl 4 Mg Tablet) 2 mg PO BEDTIME [facility] Last Admin: 05/08/22 20:30 Dose: 2 mg Documented By: KELLY Tolterodine Tartrate (Tolterodine Tartrate La 4 Mg Cap.Er.24h) 4 mg PO DAILY [facility] Last Admin: 05/09/22 09:48 Dose: 4 mg Documented By: MASOUD Vitamin D (Cholecalciferol (Vitamin D3) 25 Mcg Tablet) 50 mcg PO DAILY [facility] Last Admin: 05/09/22 09:48 Dose: 50 mcg Documented By: MASOUD Labs CBC & Chem 7: 05/07/22 06:24 05/07/22 06:24 Assessment and Plan (1) Acute respiratory failure with hypoxia: Status: Acute (2) COVID-19: Status: Acute (3) Microcytic anemia: Status: Acute Plan hospital d#5 81yo M with hx prostate CA, mood disorder, vaccinated against Covid-19 prese nting with weakness/lightheadedness x 1 wk and cough x1d admitted for hypoxia, Covid-19 infection, and severe FIDELINA # Covid-19 infection - remdesivir d#4/5 - dexamethasone d#02/02 - trend CRP # acute hypoxic resp failure - wean O2 as tolerated- currently requires 2L to maintain SaO2 >90%. home O2 ev al prior to discharge # FIDELINA - Hb improved p 1u pRBCs. unclear cause- FOBT negative and pt eats a varied diet. will obtain lab records from his primary care office [[facility]]. started Fe repletion # prostatism - continue tamsulosin, tolterodine # mood disorder - continue paroxetine + mirtazapine. BHN consult prior to discharge # VTE ppx: LMWH # dispo: PT consult. In my clinical judgment, the patient requires continued hospitalization for the following reasons: hypoxia due to severe Covid-19 infection Quality Stroke Does the patient have a stroke diagnosis?: No VTE Prior VTE?: No VTE Risk Level:: Medical - moderate - high VTE Device Contraindication: Treatment Not Indicated VTE Drug Contraindication: N/A - Med Ordered
[2022-05-09 12:00] VITALS: BP 118/67; PULSE 84; RESP 20; TEMP 37; O2SAT 95
[2022-05-09] MEDS: Remdesivir 100 MG in 0.9 % Sodium Chloride 230 ML 115 MG IV (13:32)
[2022-05-09 15:04] VITALS: BP 136/71; PULSE 82; RESP 18; TEMP 37.3; O2SAT 90
--- NOTE | 2022-05-09 16:01 | P.PNGS_ITS ---
Subjective Subjective Date of Service: 05/09/22 Interval history: The patient is seen with the help of the hospital wheel assembler. Patient notes left scrotal swelling present for at least 5 years. He denies prior known history of inguinal hernia, but assume that this scrotal swelling was a hernia. He notes that it is unsightly but does not describe typical symptoms of an inguinal hernia regarding testicular pain with exertion. Physical Exam Vital Signs: Vital Signs: Last Vital Signs Temp 99.1 F 05/09/22 15:04 Pulse 82 05/09/22 15:04 Resp 18 05/09/22 15:04 BP 136/71 05/09/22 15:04 Pulse Ox 90 L 05/09/22 15:04 O2 Del Method 05/09/22 15:04 O2 Flow Rate 2 05/09/22 07:59 BMI result Body Mass Index 23.8 I did not reexamine the patient today. As noted on yesterday's physical exam, the patient has a large left hydrocele and I am not able to appreciate his small inguinal hernia that was appreciated on CT Objective Data Active Medications Acetaminophen (Acetaminophen 325 Mg Tablet) 650 mg PO Q6H PRN PRN Reason: Pain, Mild (Pain Scale 1-3) Last Admin: 05/08/22 08:50 Dose: 650 mg Documented By: MASOUD Albuterol/Ipratropium (Albuterol/Iprat 2.5/0.5mg 3 Ml Ampul.Neb) 3 ml INHALE Q4H PRN PRN Reason: Shortness of Breath/Wheezing Dexamethasone Sodium Phosphate (Dexamethasone Sod Phosphate 4 Mg/Ml Vial) 6 mg IVPUSH DAILY [facility] Last Admin: 05/09/22 09:47 Dose: 6 mg Documented By: MASOUD Docusate Sodium (Docusate Sodium 100 Mg Capsule) 100 mg PO DAILY PRN PRN Reason: Constipation Ferrous Sulfate (Ferrous Sulfate 324 Mg Tablet.) 324 mg PO DAILY [facility] Last Admin: 05/09/22 09:48 Dose: 324 mg Documented By: MASOUD Remdesivir 100 mg/ Sodium (Chloride) 230 mls @ 115 mls/hr IV Q24H [facility] Stop: 05/10/22 14:59 Last Admin: 05/09/22 13:32 Dose: 115 mls/hr Documented By: MASOUD Mirtazapine (Mirtazapine 15 Mg Tablet) 15 mg PO BEDTIME [facility] Last Admin: 05/08/22 20:30 Dose: 15 mg Documented By: ANTDARLING Multivitamins/Vitamin C (Multivitamin Tablet) 1 tab PO DAILY [facility] Last Admin: 05/09/22 09:48 Dose: 1 tab Documented By: MASOUD Ondansetron HCl (Ondansetron Hcl 4 Mg/2 Ml Vial) 4 mg IVPUSH Q8H PRN PRN Reason: Nausea and Vomiting Paroxetine HCl (Paroxetine Hcl 10 Mg Tablet) 10 mg PO DAILY [facility] Last Admin: 05/09/22 09:48 Dose: 10 mg Documented By: MASOUD Pharmacy Consult (Consult Rx Perform Med Rec) 1 each MISCELLANE ONCE PRN PRN Reason: Consult order Sodium Chloride (0.9 % Sodium Chloride Flush 3 Ml Syringe) 3 ml IVFLUSH QSHIFT [facility] Last Admin: 05/09/22 09:47 Dose: 3 ml Documented By: MASOUD Tamsulosin HCl (Tamsulosin Hcl 0.4 Mg Capsule) 0.4 mg PO DAILY [facility] Last Admin: 05/09/22 09:48 Dose: 0.4 mg Documented By: MASOUD Tizanidine HCl (Tizanidine Hcl 4 Mg Tablet) 2 mg PO BEDTIME [facility] Last Admin: 05/08/22 20:30 Dose: 2 mg Documented By: KELLY Tolterodine Tartrate (Tolterodine Tartrate La 4 Mg Cap.Er.24h) 4 mg PO DAILY [facility] Last Admin: 05/09/22 09:48 Dose: 4 mg Documented By: MASOUD Vitamin D (Cholecalciferol (Vitamin D3) 25 Mcg Tablet) 50 mcg PO DAILY [facility] Last Admin: 05/09/22 09:48 Dose: 50 mcg Documented By: MASOUD Labs CBC & Chem 7: 05/07/22 06:24 05/07/22 06:24 Procedures Date of Service Date of Service: 05/09/22 Progress Note: A&P Assessment and plan (1) Hydrocele, left: Status: Acute (2) Left inguinal hernia: Status: Acute (3) Acute respiratory failure with hypoxia: Status: Acute (4) Microcytic anemia: Status: Acute (5) COVID-19: Status: Acute Plan With the help of the wheel assembler, the patient identified that he is concerned about the cosmetics of this large hydrocele. He has been seen by a urologist before because of prostate cancer, however he is unable to explain why the hydrocele has never been addressed previously. He is not describing pain from an inguinal hernia, but rather cosmetic concerns regarding his hydrocele. He should follow up with his urologist. If he remains symptomatic or has concerns after his hydrocele is addressed, I can see him on an outpatient basis. Thank you for asking me to participate in his care. Will sign off. Time Spent With Patient Time: Total time spent is greater than 50% in coordination of care (as documented) at patient's floor/unit and/or counseling patient: Quality Stroke Does the patient have a stroke diagnosis?: No VTE Prior VTE?: No VTE Risk Level:: Medical - moderate - high VTE Device Contraindication: Treatment Not Indicated VTE Drug Contraindication: N/A - Med Ordered
[2022-05-09 19:07] VITALS: BP 164/76; PULSE 80; RESP 18; TEMP 36.3; O2SAT 98
[2022-05-09] MEDS: TiZANidine HCL 4 MG TABLET 2 MG PO (21:14)
[2022-05-09] MEDS: Mirtazapine 15 MG TABLET PO (21:14)
[2022-05-09 23:30] VITALS: BP 109/59; PULSE 84; RESP 18; TEMP 37.2; O2SAT 91
[2022-05-10 04:00] VITALS: BP 124/72; PULSE 56; RESP 18; TEMP 37.1; O2SAT 94
[2022-05-10 07:48] VITALS: BP 141/75; PULSE 72; RESP 20; TEMP 36.8; O2SAT 92
[2022-05-10] MEDS: 0.9 % Sodium Chloride Flush 3 ML SYRINGE IVFLUSH ×2 (08:10→23:05)
[2022-05-10] MEDS: dexAMETHasone sod phosphate 4 MG/ML VIAL 6 MG IVPUSH (08:11)
[2022-05-10] MEDS: PARoxetine HCL 10 MG TABLET PO (08:12)
[2022-05-10] MEDS: Cholecalciferol (Vitamin D3) 25 MCG TABLET 50 MCG PO (08:12)
[2022-05-10] MEDS: Tolterodine Tartrate LA 4 MG CAP.ER.24H PO (08:12)
[2022-05-10] MEDS: Multivitamin TABLET 1 TAB PO (08:12)
[2022-05-10] MEDS: Ferrous Sulfate 324 MG TABLET.DR PO (08:12)
[2022-05-10] MEDS: Tamsulosin HCL 0.4 MG CAPSULE PO (08:12)
[2022-05-10 08:31] LABS: Hematocrit 33.1 % (42.0-52.0); Hemoglobin 9.7 g/dl (14.0-18.0); Mean Corpuscular HGB Conc 29.3 g/dl (31.0-36.0); Mean Corpuscular Hemoglobin 20.5 pg (27.0-33.0); Mean Corpuscular Volume 69.8 fL (80.0-98.0); Mean Platelet Volume 9.3 fL (9.4-12.4); Platelet Count 258 X10*3/uL (160-400); Red Blood Count 4.74 X10*6/uL (4.60-5.80); Red Cell Distribution Width 26.6 % (11.0-16.0); White Blood Count 9.9 X10*3/uL (4.8-10.8)
[2022-05-10 08:48] LABS: Anion Gap 14 (12-20); Blood Urea Nitrogen 22 mg/dL (9-16); C Reactive Protein 9.92 mg/dL (< or = 0.50); Calcium 8.9 mg/dL (8.4-10.2); Carbon Dioxide 28 mmol/L (22-29); Chloride 102 mmol/L (96-108); Creatinine Clr Calc Pharmacy 53.5; Estimated Glomerular Filt Rate > 60; Glucose Random 106 mg/dL (60-115); Potassium 4.1 mmol/L (3.3-5.1); Sodium 140 mmol/L (135-145)
[2022-05-10 11:34] VITALS: BP 131/63; PULSE 64; RESP 18; TEMP 36.1; O2SAT 92
--- NOTE | 2022-05-10 11:57 | MHC.CM.PN ---
No plan for d/c today. Case Management will continue to follow along for d/c planning needs.
[2022-05-10] MEDS: Remdesivir 100 MG in 0.9 % Sodium Chloride 230 ML 115 MG IV (13:46)
--- NOTE | 2022-05-10 15:15 | P.PNIM_ITS ---
Subjective Subjective Date of Service: 05/10/22 Interval History: no acute issues overnight Review of Systems denies chest pain Denies nausea vomiting diarrhea Denies abdominal pain Denies fever chills Physical Exam Vital Signs: Vital Signs: Last Vital Signs Temp 96.9 F 05/10/22 11:34 Pulse 64 05/10/22 11:34 Resp 18 05/10/22 11:34 BP 131/63 05/10/22 11:34 Pulse Ox 92 05/10/22 11:34 O2 Del Method 05/10/22 11:34 O2 Flow Rate 2 05/09/22 07:59 BMI result Body Mass Index 23.8 Const: Other: no acute distress Resp: Other: clear to auscultation bilaterally no rales rhonchi or whe Cardio: Other: no S4; positive S1-S2; no S3 murmurs rubs o GI: Other: soft nontender nondistended normoactive bowel sounds Extrem: Other: no edema bilaterally Objective Data Active Medications Acetaminophen (Acetaminophen 325 Mg Tablet) 650 mg PO Q6H PRN PRN Reason: Pain, Mild (Pain Scale 1-3) Last Admin: 05/08/22 08:50 Dose: 650 mg Documented By: MASOUD Albuterol/Ipratropium (Albuterol/Iprat 2.5/0.5mg 3 Ml Ampul.Neb) 3 ml INHALE Q4H PRN PRN Reason: Shortness of Breath/Wheezing Dexamethasone Sodium Phosphate (Dexamethasone Sod Phosphate 4 Mg/Ml Vial) 6 mg IVPUSH DAILY [facility] Last Admin: 05/10/22 08:11 Dose: 6 mg Documented By: HOLLY Docusate Sodium (Docusate Sodium 100 Mg Capsule) 100 mg PO DAILY PRN PRN Reason: Constipation Ferrous Sulfate (Ferrous Sulfate 324 Mg Tablet.) 324 mg PO DAILY [facility] Last Admin: 05/10/22 08:12 Dose: 324 mg Documented By: HOLLY Mirtazapine (Mirtazapine 15 Mg Tablet) 15 mg PO BEDTIME [facility] Last Admin: 05/09/22 21:14 Dose: 15 mg Documented By: ANTOIC Multivitamins/Vitamin C (Multivitamin Tablet) 1 tab PO DAILY [facility] Last Admin: 05/10/22 08:12 Dose: 1 tab Documented By: HOLLY Ondansetron HCl (Ondansetron Hcl 4 Mg/2 Ml Vial) 4 mg IVPUSH Q8H PRN PRN Reason: Nausea and Vomiting Paroxetine HCl (Paroxetine Hcl 10 Mg Tablet) 10 mg PO DAILY [facility] Last Admin: 05/10/22 08:12 Dose: 10 mg Documented By: HOLLY Pharmacy Consult (Consult Rx Perform Med Rec) 1 each MISCELLANE ONCE PRN PRN Reason: Consult order Sodium Chloride (0.9 % Sodium Chloride Flush 3 Ml Syringe) 3 ml IVFLUSH QSHIFT [facility] Last Admin: 05/10/22 08:10 Dose: 3 ml Documented By: HOLLY Tamsulosin HCl (Tamsulosin Hcl 0.4 Mg Capsule) 0.4 mg PO DAILY [facility] Last Admin: 05/10/22 08:12 Dose: 0.4 mg Documented By: HOLLY Tizanidine HCl (Tizanidine Hcl 4 Mg Tablet) 2 mg PO BEDTIME [facility] Last Admin: 05/09/22 21:14 Dose: 2 mg Documented By: ANTOIC Tolterodine Tartrate (Tolterodine Tartrate La 4 Mg Cap.Er.24h) 4 mg PO DAILY [facility] Last Admin: 05/10/22 08:12 Dose: 4 mg Documented By: HOLLY Vitamin D (Cholecalciferol (Vitamin D3) 25 Mcg Tablet) 50 mcg PO DAILY [facility] Last Admin: 05/10/22 08:12 Dose: 50 mcg Documented By: HOLLY Labs CBC & Chem 7: 05/10/22 08:20 05/10/22 08:20 Labs: Laboratory Results - last 24 hr 05/10/22 05/10/22 08:20 08:20 MCV 69.8 L MCH 20.5 L MCHC 29.3 L RDW 26.6 H Plt Count 258 MPV 9.3 L Absolute Nucleated RBC 0.000 Nucleated RBC % (auto) 0.0 Anion Gap 14 Estim Creat Clear Calc 53.5 Estimated GFR > 60 Random Glucose 106 Calcium 8.9 C-Reactive Protein 9.92 H Assessment and Plan (1) COVID-19: Status: Acute (2) Acute respiratory failure with hypoxia: Status: Acute (3) Anemia: Status: Acute Plan 81yo M with hx prostate CA, mood disorder, vaccinated against Covid-19 presenting with weakness/lightheadedness x 1 wk and cough x1d; admitted for hypoxia, Covid-19 infection, and severe FIDELINA 1.Covid-19 infection(acute hypoxic resp failure) - remdesivir (01/28) - dexamethasone (03/05) - titrate O2 as tolerated 2.Anemia - Hb improved p 1u pRBCs. - follow clinically 3.Prostate cancer - continue tamsulosin, tolterodine # VTE ppx: LMWH Requires ongoing hospitalization for treatment of hypoxemia associated with COVID-19 virus Quality Stroke Does the patient have a stroke diagnosis?: No VTE Prior VTE?: No VTE Risk Level:: Medical - moderate - high VTE Device Contraindication: Treatment Not Indicated VTE Drug Contraindication: N/A - Med Ordered
[2022-05-10 15:50] VITALS: BP 171/72; PULSE 61; RESP 20; TEMP 36.7; O2SAT 96
[2022-05-10 19:34] VITALS: BP 167/80; PULSE 72; RESP 20; TEMP 37.2; O2SAT 94
[2022-05-10] MEDS: Mirtazapine 15 MG TABLET PO (23:04)
[2022-05-10] MEDS: TiZANidine HCL 4 MG TABLET 2 MG PO (23:04)
[2022-05-10 23:17] VITALS: BP 125/76; PULSE 75; RESP 18; TEMP 37.4; O2SAT 90
[2022-05-11 03:11] VITALS: BP 127/64; PULSE 74; RESP 18; TEMP 37.2; O2SAT 90
[2022-05-11 08:00] VITALS: BP 148/77; PULSE 68; RESP 16; TEMP 37.2; O2SAT 95
[2022-05-11 08:34] LABS: MANUAL DIFF FLAG NO
[2022-05-11 08:38] LABS: Basophils Percent Auto 0.2 % (0-2); Eosinophils Percent Auto 0.1 % (0-4); Hematocrit 32.3 % (42.0-52.0); Hemoglobin 9.5 g/dl (14.0-18.0); Imm Gran Abs Auto 0.06 X10*3/uL (0.00-0.03); Imm Gran Pct Auto 0.5 % (0.0-0.4); Lymphocytes Absolute Auto 2.4 X10*3/uL (1.2-4.9); Lymphocytes Percent Auto 20.9 % (20-40); Mean Corpuscular HGB Conc 29.4 g/dl (31.0-36.0); Mean Corpuscular Hemoglobin 20.3 pg (27.0-33.0); Mean Corpuscular Volume 69.2 fL (80.0-98.0); Mean Platelet Volume 9.1 fL (9.4-12.4); Monocytes Absolute Auto 0.9 X10*3/uL (0.1-1.2); Neutrophils Absolute Auto 8.2 x10*3/uL (2.0-8.3); Neutrophils Percent Auto 70.3 % (45-73); Platelet Count 249 X10*3/uL (160-400); Red Blood Count 4.67 X10*6/uL (4.60-5.80); Red Cell Distribution Width 27.3 % (11.0-16.0); White Blood Count 11.7 X10*3/uL (4.8-10.8)
[2022-05-11 08:52] LABS: Alanine Aminotransferase 22 U/L (0-40); Albumin Level 3.3 g/dL (3.5-5.0); Alkaline Phosphatase 61 U/L (39-117); Anion Gap 12 (12-20); Aspartate Amino Transferase 28 U/L (5-37); Bilirubin Total 0.3 mg/dL (0.0-1.0); Blood Urea Nitrogen 23 mg/dL (9-16); Calcium 8.6 mg/dL (8.4-10.2); Carbon Dioxide 27 mmol/L (22-29); Chloride 103 mmol/L (96-108); Creatinine Clr Calc Pharmacy 51.8; Estimated Glomerular Filt Rate > 60; Glucose Fasting 99 mg/dL (60-99); Sodium 138 mmol/L (135-145); Total Protein 5.9 g/dL (6.5-8.0)
[2022-05-11] MEDS: Tamsulosin HCL 0.4 MG CAPSULE PO (09:36)
[2022-05-11] MEDS: PARoxetine HCL 10 MG TABLET PO (09:36)
[2022-05-11] MEDS: dexAMETHasone sod phosphate 4 MG/ML VIAL 6 MG IVPUSH (09:36)
[2022-05-11] MEDS: Ferrous Sulfate 324 MG TABLET.DR PO (09:36)
[2022-05-11] MEDS: Tolterodine Tartrate LA 4 MG CAP.ER.24H PO (09:36)
[2022-05-11] MEDS: Multivitamin TABLET 1 TAB PO (09:36)
[2022-05-11] MEDS: Cholecalciferol (Vitamin D3) 25 MCG TABLET 50 MCG PO (09:36)
[2022-05-11] MEDS: 0.9 % Sodium Chloride Flush 3 ML SYRINGE IVFLUSH ×2 (09:39→18:13)
[2022-05-11] MEDS: Acetaminophen 325 MG TABLET 650 MG PO (09:46)
[2022-05-11 10:59] VITALS: BP 148/77; PULSE 68; O2SAT 95
[2022-05-11 12:00] VITALS: BP 130/68; PULSE 73; RESP 16; TEMP 37.2; O2SAT 95
[2022-05-11 15:11] VITALS: BP 129/62; PULSE 62; RESP 18; TEMP 36.1; O2SAT 94
--- NOTE | 2022-05-11 15:32 | HO.PM.IMPN ---
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; feels better today Review of Systems denies chest pain Denies nausea vomiting diarrhea Denies abdominal pain Denies fever chills Physical Exam Vital Signs: Vital Signs: Last Vital Signs Temp 97.0 F 05/11/22 15:11 Pulse 62 05/11/22 15:11 Resp 18 05/11/22 15:11 BP 129/62 05/11/22 15:11 Pulse Ox 94 05/11/22 15:11 O2 Del Method 05/11/22 15:11 O2 Flow Rate 2 05/09/22 07:59 BMI result Body Mass Index 23.8 Const: Other: no acute distress Resp: Other: clear to auscultation bilaterally no rales rhonchi or whe Cardio: Other: no S4; positive S1-S2; no S3 murmurs rubs o GI: Other: soft nontender nondistended normoactive bowel sounds Extrem: Other: no edema bilaterally Objective Data Active Medications Acetaminophen (Acetaminophen 325 Mg Tablet) 650 mg PO Q6H PRN PRN Reason: Pain, Mild (Pain Scale 1-3) Last Admin: 05/11/22 09:46 Dose: 650 mg Documented By: DAYANA Albuterol/Ipratropium (Albuterol/Iprat 2.5/0.5mg 3 Ml Ampul.Neb) 3 ml INHALE Q4H PRN PRN Reason: Shortness of Breath/Wheezing Dexamethasone Sodium Phosphate (Dexamethasone Sod Phosphate 4 Mg/Ml Vial) 6 mg IVPUSH DAILY [facility] Last Admin: 05/11/22 09:36 Dose: 6 mg Documented By: DAYANA Docusate Sodium (Docusate Sodium 100 Mg Capsule) 100 mg PO DAILY PRN PRN Reason: Constipation Ferrous Sulfate (Ferrous Sulfate 324 Mg Tablet.) 324 mg PO DAILY [facility] Last Admin: 05/11/22 09:36 Dose: 324 mg Documented By: DAYANA Mirtazapine (Mirtazapine 15 Mg Tablet) 15 mg PO BEDTIME [facility] Last Admin: 05/10/22 23:04 Dose: 15 mg Documented By: MARSHAL Multivitamins/Vitamin C (Multivitamin Tablet) 1 tab PO DAILY [facility] Last Admin: 05/11/22 09:36 Dose: 1 tab Documented By: DAYANA Ondansetron HCl (Ondansetron Hcl 4 Mg/2 Ml Vial) 4 mg IVPUSH Q8H PRN PRN Reason: Nausea and Vomiting Paroxetine HCl (Paroxetine Hcl 10 Mg Tablet) 10 mg PO DAILY [facility] Last Admin: 05/11/22 09:36 Dose: 10 mg Documented By: DAYANA Pharmacy Consult (Consult Rx Perform Med Rec) 1 each MISCELLANE ONCE PRN PRN Reason: Consult order Sodium Chloride (0.9 % Sodium Chloride Flush 3 Ml Syringe) 3 ml IVFLUSH QSHIFT [facility] Last Admin: 05/11/22 09:39 Dose: 3 ml Documented By: DAYANA Tamsulosin HCl (Tamsulosin Hcl 0.4 Mg Capsule) 0.4 mg PO DAILY [facility] Last Admin: 05/11/22 09:36 Dose: 0.4 mg Documented By: DAYANA Tizanidine HCl (Tizanidine Hcl 4 Mg Tablet) 2 mg PO BEDTIME [facility] Last Admin: 05/10/22 23:04 Dose: 2 mg Documented By: MARSHAL Tolterodine Tartrate (Tolterodine Tartrate La 4 Mg Cap.Er.24h) 4 mg PO DAILY [facility] Last Admin: 05/11/22 09:36 Dose: 4 mg Documented By: DAYANA Vitamin D (Cholecalciferol (Vitamin D3) 25 Mcg Tablet) 50 mcg PO DAILY [facility] Last Admin: 05/11/22 09:36 Dose: 50 mcg Documented By: DAYANA Labs CBC & Chem 7: 05/11/22 08:23 05/11/22 08:23 Labs: Laboratory Results - last 24 hr 05/11/22 05/11/22 08:23 08:23 MCV 69.2 L MCH 20.3 L MCHC 29.4 L RDW 27.3 H Plt Count 249 MPV 9.1 L Immature Gran % (Auto) 0.5 H Neut % (Auto) 70.3 Lymph % (Auto) 20.9 Mccormick % (Auto) 8.0 Eos % (Auto) 0.1 Baso % (Auto) 0.2 Lymph # (Auto) 2.4 Mccormick # (Auto) 0.9 Eos # (Auto) 0.0 Baso # (Auto) 0.0 Abs Immat Gran (auto) 0.06 H Absolute Neuts (auto) 8.2 Absolute Nucleated RBC 0.000 Nucleated RBC % (auto) 0.0 Anion Gap 12 Estim Creat Clear Calc 51.8 Estimated GFR > 60 Fasting Glucose 99 Calcium 8.6 Total Bilirubin 0.3 AST 28 ALT 22 Alkaline Phosphatase 61 Total Protein 5.9 L Albumin 3.3 L Microbiology Microbiology Results: Microbiology 05/05/22 22:38 Blood Culture - Final Blood - Venous No growth after 5 days. 05/05/22 22:38 Blood Culture - Final Blood - Venous No growth after 5 days. 05/05/22 17:10 Blood Culture - Final Blood - Venous No growth after 5 days. 05/05/22 17:11 Blood Culture - Final Blood - Venous No growth after 5 days. Assessment and Plan (1) Acute respiratory failure with hypoxia: Status: Acute (2) COVID-19: Status: Acute (3) Anemia: Status: Acute Plan 81yo M with hx prostate CA, mood disorder, vaccinated against Covid-19 presenting with weakness/lightheadedness x 1 wk and cough x1d; admitted for hypoxia, Covid-19 infection, and severe FIDELINA 1.Covid-19 infection(acute hypoxic resp failure) - remdesivir complete - dexamethasone (04/04) - PT recommend short-term rehab will discuss with family in a.m. 2.Anemia - Hb improved p 1u pRBCs. - follow clinically 3.Prostate cancer - continue tamsulosin, tolterodine # VTE ppx: LMWH Requires ongoing hospitalization for treatment of hypoxemia associated with COVID-19 virus Quality Stroke Does the patient have a stroke diagnosis?: No VTE Prior VTE?: No VTE Risk Level:: Medical - moderate - high VTE Device Contraindication: Treatment Not Indicated VTE Drug Contraindication: N/A - Med Ordered
[2022-05-11 19:22] VITALS: BP 132/78; PULSE 82; RESP 20; TEMP 36.7; O2SAT 90
[2022-05-11] MEDS: Mirtazapine 15 MG TABLET PO (21:36)
[2022-05-11] MEDS: TiZANidine HCL 4 MG TABLET 2 MG PO (21:36)
[2022-05-12] VITALS (8 sets, daily range): BP systolic 97–149; BP diastolic 55–72; PULSE 61–82; RESP 15–19; TEMP 36.6–37.7; O2SAT 90–95
[2022-05-12] MEDS: Tamsulosin HCL 0.4 MG CAPSULE PO (08:00)
[2022-05-12] MEDS: Cholecalciferol (Vitamin D3) 25 MCG TABLET 50 MCG PO (08:00)
[2022-05-12] MEDS: Ferrous Sulfate 324 MG TABLET.DR PO (08:00)
[2022-05-12] MEDS: Multivitamin TABLET 1 TAB PO (08:00)
[2022-05-12] MEDS: PARoxetine HCL 10 MG TABLET PO (08:00)
[2022-05-12] MEDS: dexAMETHasone sod phosphate 4 MG/ML VIAL 6 MG IVPUSH (08:00)
[2022-05-12] MEDS: 0.9 % Sodium Chloride Flush 3 ML SYRINGE IVFLUSH ×2 (08:01→18:46)
[2022-05-12] MEDS: Tolterodine Tartrate LA 4 MG CAP.ER.24H PO (08:01)
--- NOTE | 2022-05-12 14:44 | HO.PM.IMPN ---
Subjective Subjective Date of Service: 05/12/22 Interval History: No acute issues overnight Review of Systems denies chest pain Denies nausea vomiting diarrhea Denies abdominal pain Denies fever chills Physical Exam Vital Signs: Vital Signs: Last Vital Signs Temp 99.0 F 05/12/22 11:24 Pulse 61 05/12/22 11:24 Resp 19 05/12/22 11:24 BP 131/71 05/12/22 11:24 Pulse Ox 95 05/12/22 11:24 O2 Del Method 05/12/22 11:24 O2 Flow Rate 2 05/09/22 07:59 BMI result Body Mass Index 23.8 Const: Other: no acute distress Resp: Other: clear to auscultation bilaterally no rales rhonchi or whe Cardio: Other: no S4; positive S1-S2; no S3 murmurs rubs o GI: Other: soft nontender nondistended normoactive bowel sounds Extrem: Other: no edema bilaterally Objective Data Active Medications Acetaminophen (Acetaminophen 325 Mg Tablet) 650 mg PO Q6H PRN PRN Reason: Pain, Mild (Pain Scale 1-3) Last Admin: 05/11/22 09:46 Dose: 650 mg Documented By: SOLISBENNIE Albuterol/Ipratropium (Albuterol/Iprat 2.5/0.5mg 3 Ml Ampul.Neb) 3 ml INHALE Q4H PRN PRN Reason: Shortness of Breath/Wheezing Dexamethasone Sodium Phosphate (Dexamethasone Sod Phosphate 4 Mg/Ml Vial) 6 mg IVPUSH DAILY [facility] Last Admin: 05/12/22 08:00 Dose: 6 mg Documented By: OPHELIA Comments: 1.5ml Docusate Sodium (Docusate Sodium 100 Mg Capsule) 100 mg PO DAILY PRN PRN Reason: Constipation Ferrous Sulfate (Ferrous Sulfate 324 Mg Tablet.) 324 mg PO DAILY [facility] Last Admin: 05/12/22 08:00 Dose: 324 mg Documented By: OPHELIA Mirtazapine (Mirtazapine 15 Mg Tablet) 15 mg PO BEDTIME [facility] Last Admin: 05/11/22 21:36 Dose: 15 mg Documented By: BAKARI Multivitamins/Vitamin C (Multivitamin Tablet) 1 tab PO DAILY [facility] Last Admin: 05/12/22 08:00 Dose: 1 tab Documented By: HO.N-RIVLA Ondansetron HCl (Ondansetron Hcl 4 Mg/2 Ml Vial) 4 mg IVPUSH Q8H PRN PRN Reason: Nausea and Vomiting Paroxetine HCl (Paroxetine Hcl 10 Mg Tablet) 10 mg PO DAILY [facility] Last Admin: 05/12/22 08:00 Dose: 10 mg Documented By: OPHELIA Pharmacy Consult (Consult Rx Perform Med Rec) 1 each MISCELLANE ONCE PRN PRN Reason: Consult order Sodium Chloride (0.9 % Sodium Chloride Flush 3 Ml Syringe) 3 ml IVFLUSH QSHIFT [facility] Last Admin: 05/12/22 08:01 Dose: 3 ml Documented By: OPHELIA Tamsulosin HCl (Tamsulosin Hcl 0.4 Mg Capsule) 0.4 mg PO DAILY [facility] Last Admin: 05/12/22 08:00 Dose: 0.4 mg Documented By: OPHELIA Tizanidine HCl (Tizanidine Hcl 4 Mg Tablet) 2 mg PO BEDTIME [facility] Last Admin: 05/11/22 21:36 Dose: 2 mg Documented By: BAKARI Tolterodine Tartrate (Tolterodine Tartrate La 4 Mg Cap.Er.24h) 4 mg PO DAILY [facility] Last Admin: 05/12/22 08:01 Dose: 4 mg Documented By: OPHELIA Vitamin D (Cholecalciferol (Vitamin D3) 25 Mcg Tablet) 50 mcg PO DAILY [facility] Last Admin: 05/12/22 08:00 Dose: 50 mcg Documented By: OPHELIA Labs CBC & Chem 7: 05/11/22 08:23 05/11/22 08:23 Assessment and Plan (1) COVID-19: Status: Acute (2) Anemia: Status: Acute Plan 81yo M with hx prostate CA, mood disorder, vaccinated against Covid-19 presenting with weakness/lightheadedness x 1 wk and cough x1d; admitted for hypoxia, Covid-19 infection, and severe FIDELINA 1.Covid-19 infection(acute hypoxic resp failure) - remdesivir complete - dexamethasone (05/05) - PT recommend short-term rehab ... family wishes to take patient home and understands recommendation. Will DC home in a.m. with services 2.Anemia - Hb improved p 1u pRBCs. - follow clinically 3.Prostate cancer - continue tamsulosin, tolterodine # VTE ppx: LMWH Requires ongoing hospitalization for treatment of hypoxemia associated with COVID-19 virus Quality Stroke Does the patient have a stroke diagnosis?: No VTE Prior VTE?: No VTE Risk Level:: Medical - moderate - high VTE Device Contraindication: Treatment Not Indicated VTE Drug Contraindication: N/A - Med Ordered
--- NOTE | 2022-05-12 16:28 | MHC.CM.PN ---
Spoke with patient's nephew Klaus re DP. PT gabriela recommends STR. Requested facility preferences. Klaus stated that his uncle has had an unsteady gait for years. Family assists in the home. He does not think that the patient will benefit from STR. DP home with family care and VNA. DC is anticipated tomorrow.
[2022-05-12] MEDS: TiZANidine HCL 4 MG TABLET 2 MG PO (21:59)
[2022-05-12] MEDS: Mirtazapine 15 MG TABLET PO (22:00)
[2022-05-13] MEDS: 0.9 % Sodium Chloride Flush 3 ML SYRINGE IVFLUSH ×2 (01:46→09:30)
[2022-05-13 03:52] VITALS: PULSE 66; RESP 15
[2022-05-13 07:39] VITALS: BP 132/77; PULSE 69; RESP 20; TEMP 36.7; O2SAT 96
[2022-05-13] MEDS: Tolterodine Tartrate LA 4 MG CAP.ER.24H PO (09:29)
[2022-05-13] MEDS: PARoxetine HCL 10 MG TABLET PO (09:29)
[2022-05-13] MEDS: Multivitamin TABLET 1 TAB PO (09:29)
[2022-05-13] MEDS: Cholecalciferol (Vitamin D3) 25 MCG TABLET 50 MCG PO (09:29)
[2022-05-13] MEDS: Ferrous Sulfate 324 MG TABLET.DR PO (09:30)
[2022-05-13] MEDS: dexAMETHasone sod phosphate 4 MG/ML VIAL 6 MG IVPUSH (09:30)
[2022-05-13] MEDS: Tamsulosin HCL 0.4 MG CAPSULE PO (09:30)
[2022-05-13 11:50] VITALS: BP 119/70; PULSE 84; RESP 20; TEMP 36.8; O2SAT 94
--- NOTE | 2022-05-13 12:50 | PM.DS ---
DS: Providers Provider Date of Service: 05/13/22 Date of admission: 05/05/22 20:53 Date of discharge: 05/13/22 Primary care physician: Pat Mcdowell MD Consults: 05/08/22 16:06 Consult to General Surgery Routine Consulting Provider: [facility] General Surgeons Reason for consultation: inguinal hernia DS: Diagnosis Discharge Diagnosis (1) Acute respiratory failure with hypoxia: Status: Acute (2) COVID-19: Status: Acute (3) Anemia: Status: Acute DS: Summary Hospital Course Hospital Course: 81-year-old male past medical history of prostate cancer, who presents to the hospital with complaints of generalized weakness.? Patient reports that he has been progressively weak, falling, feeling generally unwell, having a cough, shortness of breath, as well as bringing up phlegm.? Patient reports that this been going on for 1 week.? He had a COVID test done at home yesterday which was positive.? He denies having any abdominal pain, no hemoptysis, hematemesis, no melena or hematochezia.? Patient reports that he is unaware of a history of anemia.? No chest pain, no palpitations, no urinary symptoms and no lower extremity edema.? No numbness tingling or weakness in the extremities.? On arrival to the ED patient was found to be hypoxic satting 88% on room air Labs are significant for WBC count of 4.6, hemoglobin of 6.6 with hematocrit of 23.6, MCV of 66.1, labs otherwise unremarkable,BNP of 190, COVID-19 positive Chest CTA negative for any PE, Abdominal pelvic CT shows no acute intra-abdominal disease, Head CT negative Occult stool negative Admitted...started on Dexamethasone. Transfused with good respnse in Hgb. over the course of his hospitalization, oxygen was tapered off. Seen in consultation by Physical therapy who recommended [facility]; family however wishes to take the patient home and understands responsibilities. This point in time he is medically stable for discharge Time Spent with Patient Time attestation: Total time spent providing and/or coordinating discharge services: Discharge coordination time: Greater than 30 minutes Quality: Safe Use of Opioids Does Pt have an Active Cancer Diagnosis on the Problem List?: Yes Opioid Measure Date for [facility] [address] Report: 04/13/22 Opioid Measure Time for [facility] [address] Report: 12:53 Quality: Stroke Does the patient have a stroke diagnosis?: No Physical Exam Vital Signs: Vital Signs: Last Vital Signs Temp 98.2 F 05/13/22 11:50 Pulse 84 05/13/22 11:50 Resp 20 05/13/22 11:50 BP 119/70 05/13/22 11:50 Pulse Ox 94 05/13/22 11:50 O2 Del Method 05/13/22 11:50 O2 Flow Rate 2 05/09/22 07:59 BMI result Body Mass Index 23.8 Const: Other: no acute distress Resp: Other: clear to auscultation bilaterally no rales rhonchi or whe Cardio: Other: no S4; positive S1-S2; no S3 murmurs rubs o GI: Other: soft nontender nondistended normoactive bowel sounds Extrem: Other: no edema bilaterally Discharge Plan Discharge Patient Disposition: Home Health Service Discharge Diagnosis: acute hypoxic respiratory failure secondary to COVID-19 virus Referrals: [facility] [Outside] - 1 Week Pat Mcdowell MD [Primary Care Provider] - 1 Week Discharge Medications: Continued paroxetine HCl 10 mg tablet 1 tab PO DAILY tizanidine 2 mg tablet 1 tab PO BEDTIME tolterodine 4 mg capsule,extended release 24hr 1 cap PO DAILY meloxicam 15 mg tablet 1 tab PO DAILY tamsulosin 0.4 mg capsule 1 cap PO DAILY mirtazapine 15 mg tablet 1 tab PO BEDTIME B-complex with vitamin C Tablet 1 tab PO DAILY calcium carbonate-vitamin D3 [Oyster Shell Calcium-Vit D3] 500 mg-10 mcg (400 unit) tablet 1 tab PO DAILY cholecalciferol (vitamin D3) 50 mcg (2,000 unit) capsule 1 cap PO DAILY Discharge Orders: Discharge Order (Routine); Ordered 05/13/22 Ordered By: Chandan Rivas Diet: Advance to usual diet Activity on Discharge: As tolerated Stand Alone Forms: Patient Portal Discharge page Care Plan Goals: will ask Physical therapy and VNA to visit at home Health Concerns: resume all pre-hospital medications Plan of Treatment: follow-up with PCP 2-3 weeks Assessment: see discharge summary
[2022-05-13 15:16] VITALS: BP 117/80; PULSE 84; RESP 18; TEMP 36.6; O2SAT 93
== END 2022-05-13 19:29 | disposition home health service (06) | DRG 177 ==
LOC: HO.ED 17:55 → HO.EDOVER 21:06 → HO.IMC 05-07 07:25
PROVIDERS: Family Medicine; Physician Assistant; Admitting Provider Internal Medicine; Emergency Provider Emergency Medicine; PCP Internal Medicine; Visit Provider Hospitalist
DX: U07.1 COVID-19 (principal); J96.01 Acute respiratory failure with hypoxia; E86.0 Dehydration; D63.0 Anemia in neoplastic disease; F32.A Depression, unspecified; N43.3 Hydrocele, unspecified; K40.90 Unilateral inguinal hernia, without obstruction or gangrene, not specified as recurrent; F41.9 Anxiety disorder, unspecified; D50.9 Iron deficiency anemia, unspecified; C61 Malignant neoplasm of prostate; Z79.899 Other long term (current) drug therapy
CPT/HCPCS: 36415; 70450; 71045; 71275; 72125; 74177; 80048; 80053; 80076; 82272; 82728; 83540; 83605; 83615; 83690; 83735; 83880; 84145; 84450; 84460; 84484; 85025; 85027; 85379; 85610; 86140; 86850; 86900; 86901; 86923; 87040; 87635; 93005; 97162; 97530; 99285; J0248; J1100; P9016; Q9967

== ENCOUNTER 2022-08-06 09:49 | Emergency (ER) | payer OTHER, SELFPAY ==
--- NOTE | ~2022-08-06 | XR_ITS ---
EXAMINATION: XR LEFT HIP WITH PELVIS XR LEFT KNEE XR RIGHT KNEE CLINICAL INFORMATION: Pain of knees and left hip. COMPARISON: None TECHNIQUE: Pelvis, AP view. Left hip, 2 views. Right knee, 2 views Left knee, 2 views FINDINGS: PELVIS AND LEFT HIP: Multilevel degenerative disc space loss and osteophyte formation of the visualized lumbar spine. Pelvic bones have normal alignment. Pubic symphysis and sacroiliac joints are intact. There appears to be an enthesophyte of the left sacroiliac joint. The joint space of each hip is maintained. Small osteophytes of the hips. The 2 views of the left hip show the femoral head to be well-positioned within the intact acetabulum. The soft tissues around the hip are unremarkable. LEFT KNEE: No fracture, subluxation or joint effusion. The tibiofemoral compartments are suboptimally evaluated due to knee flexion. There appears to be at least moderate loss of the medial tibiofemoral joint space. Small osteophytes are present at the degenerated patellofemoral compartment. The prepatellar soft tissues appear to be mildly swollen. RIGHT KNEE: No fracture or subluxation. Moderate joint effusion is evident. There is tricompartmental osteophyte formation. The tibiofemoral joint spaces are suboptimally evaluated on the frontal view due to flexion of the knee. There appears to be mild narrowing of medial tibiofemoral joint space and yjrduzdd-[id number] narrowing of the lateral tibiofemoral joint space. Two intra-articular osteochondral bodies are likely present in the posterior knee. The prepatellar soft tissues are mildly swollen. XR/XR knee RT 2V IMPRESSION: * No acute findings within the pelvis or hips. No fracture or subluxation. * Tricompartmental osteoarthritis of both knees, and moderate right knee joint effusion. * There appears to be mild soft tissue swelling in the prepatellar region of each knee.
--- NOTE | ~2022-08-06 | CT_ITS ---
EXAMINATION: CT LUMBAR SPINE WITH CONTRAST CLINICAL INFORMATION: Low back pain, inability to walk, fever COMPARISON: CT scan of the abdomen and pelvis from 05/05/2022 TECHNIQUE: This CT examination was performed using dose optimization techniques as appropriate, variously including the following: *Automated exposure control *Adjustment of mA and/or kV according to patient size (this includes techniques or standardized protocols for targeted exams where dose is matched to indication/reason for exam; i.e. extremities or head) *Use of iterative reconstruction technique 85 mL of Omnipaque 350 injected intravenously without adverse reaction DLP: 360 mGy-cm FINDINGS: LUMBAR SPINE: The vertebral bodies are normal in contour and alignment. No lytic or blastic lesions are identified. No fractures or subluxations are identified. No gross epidural hematoma is seen. The intervertebral discs are generally normal in height. No gross disc protrusions are noted. The central canal is patent. T12-L1: There is no significant disc bulge or protrusion. The facet joints are normal. There is no central canal, lateral recess, or neural foraminal stenosis. There is small Schmorl's hernia seen in the superior facet of L1 L1-L2: There is no significant disc bulge or protrusion. The facet joints are normal. There is no central canal, lateral recess, or neural foraminal stenosis. L2-L3: There is no significant disc bulge or protrusion. There is narrowing of the disc space and marginal spurring with features of degenerative spondylosis The facet joints are normal. There is no central canal, lateral recess, or neural foraminal stenosis. L3-L4: There is no significant disc bulge or protrusion. There is facet arthropathy and ligamentum flavum hypertrophy creating spinal canal and foramina narrowing. L4-L5: There is no significant disc bulge or protrusion. There is facet arthropathy and ligamentum flavum lateral hypertrophy creating narrowing of the canal and foramina. L5-S1:There is no significant disc bulge or protrusion. There is facet arthropathy and ligamentum flavum hypertrophy narrowing the canal and neuroforamina. The paraspinal soft tissues are unremarkable. Partially visualized kidneys revealed cyst in the lower pole of right kidney. CT/CT lumbar spine w IV con IMPRESSION: 1. Multilevel degenerative changes in the lumbar spine. No fractures, subluxations or evidence of osteomyelitis. 2. Cyst in the lower pole of the right kidney, correlation with ultrasound is recommended. 3. Spinal canal and foramina narrowing at the L3-L4, L4-L5 and L5-S1 levels due to facets arthropathy and ligamentum flavum hypertrophy.
--- NOTE | ~2022-08-06 | XR_ITS ---
EXAMINATION: XR LEFT HIP WITH PELVIS XR LEFT KNEE XR RIGHT KNEE CLINICAL INFORMATION: Pain of knees and left hip. COMPARISON: None TECHNIQUE: Pelvis, AP view. Left hip, 2 views. Right knee, 2 views Left knee, 2 views FINDINGS: PELVIS AND LEFT HIP: Multilevel degenerative disc space loss and osteophyte formation of the visualized lumbar spine. Pelvic bones have normal alignment. Pubic symphysis and sacroiliac joints are intact. There appears to be an enthesophyte of the left sacroiliac joint. The joint space of each hip is maintained. Small osteophytes of the hips. The 2 views of the left hip show the femoral head to be well-positioned within the intact acetabulum. The soft tissues around the hip are unremarkable. LEFT KNEE: No fracture, subluxation or joint effusion. The tibiofemoral compartments are suboptimally evaluated due to knee flexion. There appears to be at least moderate loss of the medial tibiofemoral joint space. Small osteophytes are present at the degenerated patellofemoral compartment. The prepatellar soft tissues appear to be mildly swollen. RIGHT KNEE: No fracture or subluxation. Moderate joint effusion is evident. There is tricompartmental osteophyte formation. The tibiofemoral joint spaces are suboptimally evaluated on the frontal view due to flexion of the knee. There appears to be mild narrowing of medial tibiofemoral joint space and zxoruycd-va-qcypwi narrowing of the lateral tibiofemoral joint space. Two intra-articular osteochondral bodies are likely present in the posterior knee. The prepatellar soft tissues are mildly swollen. XR/XR knee LT 2V IMPRESSION: * No acute findings within the pelvis or hips. No fracture or subluxation. * Tricompartmental osteoarthritis of both knees, and moderate right knee joint effusion. * There appears to be mild soft tissue swelling in the prepatellar region of each knee.
--- NOTE | ~2022-08-06 | XR_ITS ---
EXAMINATION: XR LEFT HIP WITH PELVIS XR LEFT KNEE XR RIGHT KNEE CLINICAL INFORMATION: Pain of knees and left hip. COMPARISON: None TECHNIQUE: Pelvis, AP view. Left hip, 2 views. Right knee, 2 views Left knee, 2 views FINDINGS: PELVIS AND LEFT HIP: Multilevel degenerative disc space loss and osteophyte formation of the visualized lumbar spine. Pelvic bones have normal alignment. Pubic symphysis and sacroiliac joints are intact. There appears to be an enthesophyte of the left sacroiliac joint. The joint space of each hip is maintained. Small osteophytes of the hips. The 2 views of the left hip show the femoral head to be well-positioned within the intact acetabulum. The soft tissues around the hip are unremarkable. LEFT KNEE: No fracture, subluxation or joint effusion. The tibiofemoral compartments are suboptimally evaluated due to knee flexion. There appears to be at least moderate loss of the medial tibiofemoral joint space. Small osteophytes are present at the degenerated patellofemoral compartment. The prepatellar soft tissues appear to be mildly swollen. RIGHT KNEE: No fracture or subluxation. Moderate joint effusion is evident. There is tricompartmental osteophyte formation. The tibiofemoral joint spaces are suboptimally evaluated on the frontal view due to flexion of the knee. There appears to be mild narrowing of medial tibiofemoral joint space and fayqovgu-kv-azzbop narrowing of the lateral tibiofemoral joint space. Two intra-articular osteochondral bodies are likely present in the posterior knee. The prepatellar soft tissues are mildly swollen. XR/XR hip LT w PEL1V IMPRESSION: * No acute findings within the pelvis or hips. No fracture or subluxation. * Tricompartmental osteoarthritis of both knees, and moderate right knee joint effusion. * There appears to be mild soft tissue swelling in the prepatellar region of each knee.
--- NOTE | ~2022-08-06 | XR_ITS ---
EXAMINATION: XR CHEST CLINICAL INFORMATION: Pain COMPARISON: CXR from 05/05/2022 TECHNIQUE: Frontal view of the chest was obtained. FINDINGS: Lungs are well expanded and clear. Cardiac silhouette is normal in size. The pulmonary vascular pattern is normal. The trachea is midline in position. Moderate osteoarthrosis of acromioclavicular joints. Multilevel osteophyte formation of the visualized spine. There appear to be old, healed fractures of left posterolateral fourth and fifth ribs. XR/XR chest 1V IMPRESSION: No acute cardiopulmonary disease compared to 05/05/2022.
--- NOTE | ~2022-08-06 | CT_ITS ---
EXAMINATION: CT HEAD W/O IV CONTRAST CT CERVICAL SPINE W/O IV CONTRAST CLINICAL INFORMATION: Weakness. COMPARISON: 05/05/2022 TECHNIQUE: Head - Contiguous axial imaging of the head was performed from the skull base to the vertex without the administration of intravenous contrast, and axial images are reconstructed at 2 mm and 5 mm slice thickness. Cervical spine - A volumetric, helical CT acquisition of the cervical spine was obtained without contrast; in addition to the standard set of axial images, multiplanar reformatted images were provided in the coronal and sagittal imaging planes. This CT examination was performed using dose optimization techniques as appropriate, variously including the following: *Automated exposure control *Adjustment of mA and/or kV according to patient size (this includes techniques or standardized protocols for targeted exams where dose is matched to indication/reason for exam; i.e. extremities or head) *Use of iterative reconstruction technique DLP: 1011 mGy-cm (total) FINDINGS: HEAD: No acute findings compared to prior head CT from 05/05/2022. No evidence of intracranial hemorrhage, major vascular territory infarction, focal mass effect or midline shift. Dumont to white matter differentiation is preserved. 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 The chronic hypoattenuation within supratentorial white matter is compatible with sequela of [id number]-br-[id number] microangiopathy. There is atherosclerotic calcification of cavernous carotid arteries. Mild parenchymal volume loss with commensurate prominence of ventricles and sulci; no hydrocephalus. The brainstem is unremarkable. The cerebellar tonsils are normal position. The mastoid air cells are well aerated. Prior ocular lens extractions. Mild mucosal thickening of inferior maxillary sinuses. There is periapical lucency around right first premolar tooth and right second molar tooth. The temporomandibular joints are unremarkable. CERVICAL SPINE: The cervical spine has normal curvature. The craniocervical junction is normal. The occipital condyles, dens and atlantodental articulation are intact. The atlantodens interval is 0.2 cm. The vertebral body heights are maintained. No fractures in the anterior or posterior elements. No prevertebral soft tissue swelling. 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 Chronic 0.3 cm of degenerative anterolisthesis of C7 on T1 due to the facet arthropathy at this level. Minimal degenerative retrolisthesis at C3-C4 and C4-C5. No new vertebral subluxations. The posterior disc-osteophyte complexes cause severe canal stenosis at C3-C4, C4-C5 and C5-C6. Also noted is multilevel severe bilateral neural foraminal stenosis. No soft tissue hematoma within the visualized neck. Thyroid gland is atrophied. Lung apices are unremarkable. CT/CT cervical spine wo IV con IMPRESSION: * No acute intracranial pathology compared to recent prior head CT from 05/05/2022. * No fractures within the severely degenerated cervical spine. No new findings in the spine compared to 05/05/2022. There is severe multilevel bilateral neural foraminal stenosis and severe spinal canal stenosis of the cervical spine. 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 Please refer to the cervical spine MRI from 02/28/2012.
--- NOTE | ~2022-08-06 | MR_ITS ---
MR LUMBAR SPINE WITHOUT AND WITH CONTRAST CLINICAL INFORMATION: Elevated ESR/CRP. Question abscess. COMPARISON: Lumbar spine CT 08/06/2022. TECHNIQUE: MRI of the lumbar spine was obtained using routine sequences with and without contrast. Intravenous contrast: Gadavist 6.5 mL. FINDINGS: There is no evidence of infection within the lumbar spine. No osteomalacia myelitis discitis and no septic facet arthritis. There are 5 nonrib-bearing lumbar-type vertebral bodies. There is stable grade 1 retrolisthesis of L2 on L3, L3 on L4, and L4 on L5. Large multilevel endplate osteophytes. Mild Modic type I endplate signal changes at L5-S1. No additional bone marrow edema. No acute fractures. No paraspinal soft tissue abscess. No edema within the paravertebral diameter the paraspinal soft tissues. There is mild dependent subcutaneous edema. Conus terminates at the L1-L2 level. There is a right renal cyst. No epidural collections. At T11-T12, right lateral disc osteophyte and advanced facet arthropathy result in severe right-sided foraminal stenosis and compression of the exiting right nerve root which is unchanged. Moderate left foraminal stenosis at this level is also stable. L1-L2: Diffuse annular disc bulge and mild bilateral facet arthropathy. No central canal stenosis. Mild bilateral foraminal encroachment unchanged. L2-L3: Grade 1 retrolisthesis. There is a diffuse annular disc bulge with a superimposed left paracentral/left lateral disc protrusion which is in part disc osteophyte results in similar compression of the traversing left L3 nerve root within the left subarticular zone and moderate left-sided foraminal stenosis with mass effect on the extraforaminal left L2 nerve root. Stable mild right foraminal encroachment. L3-L4: There is a diffuse annular disc bulge and there is severe bilateral facet arthropathy and ligamentum flavum thickening. Worsening severe central canal stenosis as well as moderate to severe right and moderate left foraminal stenosis with mass effect on the exiting right greater than left L3 nerve roots. L4-L5: Diffuse annular disc bulge and severe bilateral facet arthropathy and ligamentum flavum thickening. Findings in concert result in similar severe central canal stenosis and worsening moderate to severe bilateral foraminal stenosis with worsening compression of the exiting L4 nerve roots bilaterally. L5-S1: Diffuse disc osteophyte complex and severe bilateral facet arthropathy and ligamentum flavum thickening. On is in concert result in similar severe bilateral subarticular zone stenosis with compression of the traversing S1 nerve roots bilaterally and similar severe bilateral foraminal stenosis with compression of the exiting L5 nerve roots bilaterally. MR/MR lumbar spine wo/w con IMPRESSION: - There is no MRI evidence of spinal infection. No epidural collections. - At L5-S1, advanced multifactorial degenerative changes result in similar severe bilateral subarticular zone stenosis with compression of the traversing S1 nerve roots bilaterally and similar severe bilateral foraminal stenosis with compression of the exiting L5 nerve roots bilaterally. - At L4-L5, progressive advanced multifactorial degenerative changes result in similar severe central canal stenosis and worsening moderate to severe bilateral foraminal stenosis with worsening compression of the exiting L4 nerve roots bilaterally. - At L3-L4, progressive advanced multifactorial degenerative changes result in worsening severe central canal stenosis as well as moderate to severe right and moderate left foraminal stenosis with mass effect on the exiting right greater than left L3 nerve roots. - At L2-L3, there is a stable left paracentral/left lateral disc protrusion which is in part disc osteophyte that results in similar compression of the traversing left L3 nerve root within the left subarticular zone and moderate left-sided foraminal stenosis with mass effect on the extraforaminal left L2 nerve root. - At T11-T12, right lateral disc osteophyte and advanced facet arthropathy result in severe right-sided foraminal stenosis and compression of the exiting right nerve root which is unchanged. Moderate left foraminal stenosis at this level is also stable.
[2022-08-06 10:00] VITALS: BP 124/39; PULSE 102; RESP 16; TEMP 37.1; O2SAT 96; BMI 25.4
--- NOTE | 2022-08-06 10:06 | PC.NURSE ---
patient alert to person, unsure about place/time, c/o 07/05 low back and bilateral knee pain, pt hx dementia poor historian, will continue to monitor
--- NOTE | 2022-08-06 11:16 | ED_ITS ---
HPI - General Adult General Chief complaint: Back Pain/Injury <MILLI Lee - Last Filed: 08/06/22 17:56> Stated complaint: LOWER BACK PAIN,-TRAUMA <MILLI Lee - Last Filed: 08/06/22 17:56> Time Seen by Provider: 08/06/22 11:15 <MILLI Lee - Last Filed: 08/06/22 17:56> Source: patient, family (nephew), EMS and referral manager <MILLI Lee - Last Filed: 08/06/22 17:56> Mode of arrival: EMS <MILLI Lee - Last Filed: 08/06/22 17:56> Limitations: language barrier <MILLI Lee - Last Filed: 08/06/22 17:56> History of Present Illness HPI narrative: Patient is an 82 year old assigned male at with a history of anemia and cervical spine disease presenting to the emergency department today with generalized pain. Patient's nephew states that the patient has been having decreased ambulation for the last few weeks and he was once told that the patient's cervical spine disease would progress to make this happen. Patient states that everything hurts. Patient's nephew states that he takes care of the patient at his home and the patient can usually ambulate but isn't able to now. Patient denies any dizziness, lightheadedness, abdominal pain, nausea, vomiting, fever, chills, blurry vision, double vision, loss of vision, chest pain, difficulty breathing, shortness of breath, night sweats, pain with urination, increased urinary frequency, increased urinary urgency, blood in his urine or st ool, syncope or a near syncopal episode,bowel incontinence, bladder incontinence, bowel retention, bladder retention, or any other complaints at this time. Patient's nephew states that the patient may have fallen out of bed last night as well. <MILLI Lee - Last Filed: 08/06/22 17:56> Onset (ago): week(s) <MILLI Lee - Last Filed: 08/06/22 17:56> Severity: mild <MILLI Lee Last Filed: 08/06/22 17:56> Severity scale (1-10): 4 <MILLI Lee - Last Filed: 08/06/22 17:56> Quality: aching and dull <MILLI Lee - Last Filed: 08/06/22 17:56> Pain Consistency: constant <MILLI Lee - Last Filed: 08/06/22 17:56> Relieving factors: none <MILLI Lee - Last Filed: 08/06/22 17:56> Exacerbating factors: none <MILLI Lee - Last Filed: 08/06/22 17:56> Associated symptoms: denies other symptoms <MILLI Lee - Last Filed: 08/06/22 17:56> Treatments prior to arrival: none <MILLI Lee - Last Filed: 08/06/22 17:56> Related Data Home medications: Home Medications Medication Instructions Recorded Confirmed B-complex with vitamin C 1 tab PO BEDTIME 05/05/22 08/08/22 calcium carbonate 500 mg-vitamin 1 tab PO DAILY 05/05/22 08/08/22 D3 10 mcg (400 unit) tablet (Oyster Shell Calcium-Vitamin D3) cholecalciferol (vitamin D3) 50 1 cap PO DAILY 05/05/22 08/08/22 mcg (2,000 unit) capsule meloxicam 15 mg tablet 1 tab PO BEDTIME 05/05/22 08/08/22 mirtazapine 15 mg tablet 1 tab PO BEDTIME 05/05/22 08/08/22 paroxetine HCl 10 mg tablet 1 tab PO BEDTIME 05/05/22 08/08/22 tamsulosin 0.4 mg capsule 1 cap PO BEDTIME 05/05/22 08/08/22 tizanidine 2 mg tablet 1 tab PO BEDTIME 05/05/22 08/08/22 tolterodine 4 mg capsule,extended 1 cap PO QPM 08/08/22 08/08/22 release 24 hr <MILLI Lee - Last Filed: 08/06/22 17:56> Allergies/adverse reactions: Allergies Allergy/AdvReac Type Severity Reaction Status Date / Time No Known Allergies Allergy Verified 08/06/22 09:59 <MILLI Lee - Last Filed: 08/06/22 17:56> Review of Systems Constitutional: Constitutional: Reports no additional constitutional complaints, Reports body ache(s), Denies chills, Denies fever(s) and Denies night sweats <MILLI Lee - Last Filed: 08/06/22 17:56> Eyes: Eyes: Reports no additional eye complaints, Denies blurry vision, Denies change in vision, Denies diplopia, Denies eye discharge, Denies loss of vision and Denies eye pain <MILLI Lee - Last Filed: 08/06/22 17:56> ENT: Denies dizziness <MILLI Lee - Last Filed: 08/06/22 17:56> Cardiovascular: Cardiovascular: Reports no additional cardiovascular complaints, Denies chest pain, Denies lightheadedness, Denies Loss of Consciousness and Denies dyspnea <MILLI Lee - Last Filed: 08/06/22 17:56> Respiratory: Respiratory: Reports no additional respiratory complaints and Denies dyspnea <MILLI Lee - Last Filed: 08/06/22 17:56> Gastrointestinal: Gastrointestinal: Reports no additional gastrointestinal complaints, Denies abdominal pain, Denies melena, Denies hematochezia, Denies change in bowel habits and Denies change in stool character <MILLI Lee - Last Filed: 08/06/22 17:56> Genitourinary: Genitourinary: Reports no additional male genitourinary complaints, Denies hematuria, Denies oliguria, Denies difficulty urinating, Denies dysuria, Denies urinary frequency, Denies urinary hesitancy, Denies urinary incontinence and Denies urinary urgency <MILLI Lee - Last Filed: 08/06/22 17:56> Musculoskeletal: Musculoskeletal: Reports no additional musculoskeletal complaints, Reports back pain, Denies numbness and Denies tingling <MILLI Lee Last Filed: 08/06/22 17:56> Comments: bilateral pain <MILLI Lee Last Filed: 08/06/22 17:56> Neurologic: Denies dizziness, Denies loss of vision, Denies numbness and Denies tingling <MILLI Lee Last Filed: 08/06/22 17:56> Psychiatric: Psychiatric: Reports no additional psychiatric complaints <MILLI Lee - Last Filed: 08/06/22 17:56> Endocrine: Endocrine: Reports no additional endocrine complaints <MILLI Lee - Last Filed: 08/06/22 17:56> Hematologic/Lymphatic: Hematologic/Lymphatic: Reports no additional hematologic/lymphatic complaints <MILLI Lee - Last Filed: 08/06/22 17:56> Allergic/Immunologic: Allergic/Immunologic: Reports no additional allergic/immunologic complaints <MILLI Lee - Last Filed: 08/06/22 17:56> PMFSH Past Medical History Attestation statement: The following information was validated with the patient. <MILLI Lee - Last Filed: 08/06/22 17:56> Source: old records reviewed <MILLI Lee - Last Filed: 08/06/22 17:56> Medical History: Medical History Dementia Depression with anxiety Osteoarthritis Prostate cancer <MILLI Lee - Last Filed: 08/06/22 17:56> Surgical History: Surgical History No pertinent past surgical history <MILLI Lee - Last Filed: 08/06/22 17:56> Family History Family History: Family History Other No family history of coronary artery disease <MILLI Lee - Last Filed: 08/06/22 17:56> Social History Social History: Social History Household Members: Other Household Members Other:: nephew and nephew's . Housing: House Do you presently have visiting nurse or other home services: Yes (admission done with referral manager. pt stated he gets [facility] 1 x a month.) Alcohol intake: current Alcohol intake frequency: holidays/special occasions only Alcohol type: beer Patient Tobacco Use Status: Former Tobacco user Smoked in Last 30 Days: No Use of substances other than those prescribed or required for medical reasons: No Advance Directives: Yes Advance Directives Information Provided: Yes Advance Directives on File: No Advance Directives Date on File: 05/05/22 <MILLI Lee - Last Filed: 08/06/22 17:56> Physical Exam ED Vital Signs: Vital Signs - 24 hr 08/07/22 12:22 08/07/22 16:00 08/07/22 22:20 Temperature 98.3 F 98.2 F 98.8 F Pulse Rate 101 H 112 H 98 Respiratory Rate 12 16 18 Blood Pressure 106/66 128/99 H 145/67 H Pulse Oximetry 97 98 94 Oxygen Delivery Method Room Air Room Air Room Air 08/08/22 06:00 08/08/22 11:29 Temperature 98.7 F Pulse Rate 103 H 91 Respiratory Rate 16 18 Blood Pressure 131/54 L 133/67 Pulse Oximetry 96 97 Oxygen Delivery Method Room Air Room Air BMI result Body Mass Index 25.4 <MILLI Lee - Last Filed: 08/06/22 17:56> Vital Signs - 24 hr 08/07/22 12:22 08/07/22 16:00 08/07/22 22:20 Temperature 98.3 F 98.2 F 98.8 F Pulse Rate 101 H 112 H 98 Respiratory Rate 12 16 18 Blood Pressure 106/66 128/99 H 145/67 H Pulse Oximetry 97 98 94 Oxygen Delivery Method Room Air Room Air Room Air 08/08/22 06:00 08/08/22 11:29 Temperature 98.7 F Pulse Rate 103 H 91 Respiratory Rate 16 18 Blood Pressure 131/54 L 133/67 Pulse Oximetry 96 97 Oxygen Delivery Method Room Air Room Air BMI result Body Mass Index 25.4 <Rabia Retana MD - Last Filed: 08/07/22 01:42> Vital Signs - 24 hr 08/07/22 12:22 08/07/22 16:00 08/07/22 22:20 Temperature 98.3 F 98.2 F 98.8 F Pulse Rate 101 H 112 H 98 Respiratory Rate 12 16 18 Blood Pressure 106/66 128/99 H 145/67 H Pulse Oximetry 97 98 94 Oxygen Delivery Method Room Air Room Air Room Air 08/08/22 06:00 08/08/22 11:29 Temperature 98.7 F Pulse Rate 103 H 91 Respiratory Rate 16 18 Blood Pressure 131/54 L 133/67 Pulse Oximetry 96 97 Oxygen Delivery Method Room Air Room Air BMI result Body Mass Index 25.4 <MILLI Garcia - Last Filed: 08/07/22 17:40> Const General: cooperative, no acute distress, alert and awake <Natalia Bennett PA - Last Filed: 08/06/22 17:56> Nutritional Appearance: well nourished <Natalia Bennett PA - Last Filed: 08/06/22 17:56> Orientation/consciousness: patient oriented x3 <Natalia Bennett PA - Last Filed: 08/06/22 17:56> Limitations: no limitations <Natalia Bennett PA - Last Filed: 08/06/22 17:56> HENMT Head: Yes normal to inspection and Yes atraumatic <Natalia Bennett PA - Last Filed: 08/06/22 17:56> Ears: hearing grossly normal bilaterally and external ears normal <Natalia Bennett PA - Last Filed: 08/06/22 17:56> General nose exam: Normal external nose present, no nasal discharge noted and no epistaxis <Natalia Bennett PA - Last Filed: 08/06/22 17:56> Face and sinus: Yes normal facial exam, No abrasion and No laceration <Natalia Bennett PA - Last Filed: 08/06/22 17:56> Mouth: Normal oral and palatal mucosa present, no drooling and no muffled voice <Natalia Bennett PA - Last Filed: 08/06/22 17:56> Eyes General: appearance normal, both eyes and all related structures <MILLI Lee - Last Filed: 08/06/22 17:56> Periorbital: periorbital findings normal <Natalia Bennett PA - Last Filed: 08/06/22 17:56> Eyelids: Yes eyelids normal <Natalia Bennett PA - Last Filed: 08/06/22 17:56> Conjunctivae: conjunctivae normal <Natalia Bennett PA - Last Filed: 08/06/22 17:56> Pupils: Equal, round and reactive pupils present <MILLI Lee - Last Filed: 08/06/22 17:56> EOM: EOMs intact bilaterally <Natalia Bennett PA - Last Filed: 08/06/22 17:56> Neck Neck: Yes normal visual inspection, Yes full ROM and Yes no lymphadenopathy <Natalia Bennett PA - Last Filed: 08/06/22 17:56> Chest Chest palpation & inspection: normal inspection of the chest <Nataliacassandra NevesMILLI ham - Last Filed: 08/06/22 17:56> Resp Effort & Inspection: normal respiratory effort and able to speak in complete sentences <Natalia NevesMILLI ham - Last Filed: 08/06/22 17:56> Auscultation: clear to auscultation bilaterally <Nataliacassandra NevesMILLI ham - Last Filed: 08/06/22 17:56> Cardio Rate: regular rate <Natalia NevesMILLI ham - Last Filed: 08/06/22 17:56> Rhythm: regular rhythm <Natalia NevesMILLI ham - Last Filed: 08/06/22 17:56> GI Inspection: Yes normal to inspection <Nataliacassandra NevesMILLI ham - Last Filed: 08/06/22 17:56> General: Yes no CVA tenderness <Nataliacassandra NevesMILLI ham - Last Filed: 08/06/22 17:56> Back/Spine/Pelvis Back: no CVA tenderness <Natalia NevesMILLI ham - Last Filed: 08/06/22 17:56> Cervical Spine: normal cervical lordosis and cervical ROM normal <Natalia NevesMILLI ham - Last Filed: 08/06/22 17:56> Thoracic/Lumbar Spine: thoracic and lumbar spine normal to inspection and thoraco-lumbar ROM normal <Natalia NevesMILLI ham - Last Filed: 08/06/22 17:56> Pelvis: no pain with anterior-posterior compression <Nataliacassandra NevesMILLI ham - Last Filed: 08/06/22 17:56> Neuro General: patient oriented x3 and moves all extremities <Natalia NevesMILLI ham - Last Filed: 08/06/22 17:56> Cranial nerves: Yes Equal, round and reactive pupils present <Nataliacassandra NevesMILLI ham - Last Filed: 08/06/22 17:56> Cognition (Neuro): normal cognition <Natalia MILLI Bennett - Last Filed: 08/06/22 17:56> Motor exam (neuro): 5/5 motor strength present throughout <Natalia MILLI Bennett - Last Filed: 08/06/22 17:56> Sensory Exam: Normal double simultaneous stimulation for sensation <NataliaMILLI Nolasco - Last Filed: 08/06/22 17:56> Coordination: [id number] test normal <MILLI Lee - Last Filed: 08/06/22 17:56> Extrem General: Yes normal to inspection, Yes full ROM and Yes capillary refill normal <MILLI Lee - Last Filed: 08/06/22 17:56> Psych Appearance: grossly normal <MILLI Lee - Last Filed: 08/06/22 17:56> Mental Status: mental status grossly normal <MILLI Lee - Last Filed: 08/06/22 17:56> Affect: normal affect <MILLI Lee - Last Filed: 08/06/22 17:56> Attitude: cooperative <MILLI Lee - Last Filed: 08/06/22 17:56> Thought process: Normal thought process present <MILLI Lee - Last Filed: 08/06/22 17:56> Thought content: Normal thought content present <MILLI Lee - Last Filed: 08/06/22 17:56> Insight: Good insight present (Psych) <MILLI Lee - Last Filed: 08/06/22 17:56> Course Reevaluation(s) Reevaluation #1: Notified by nursing that patient is noted to be febrile to 102 and will repeat CBC/CMP/viral testing. I reviewed all workup for today and can only conclude that the source may be patient's knee as urine/chest x-ray appear to be otherwise benign. Will re-evaluate and review investigations. <Rabia Retana MD - Last Filed: 08/07/22 01:42> Time: 23:47 <Rabia Retana MD - Last Filed: 08/07/22 01:42> Reevaluation #2: Patient's investigations were reviewed and doubt bacterial etiology for febrile state, this is completely resolved after receiving Tylenol and heart rate has somewhat improved and I think there may be some component of poor oral intake throughout the past 24 hours and will give the patient 500 cc of normal saline. I recommend the patient undergo repeat viral testing within the next 24 hours. There is no cough and again, abdominal exam is benign knees are not erythematous or indurated and urine is otherwise without evidence of infection. Chest x-ray is negative. <Rabia Retana MD - Last Filed: 08/07/22 01:42> Time: 01:40 <Rabia Retana MD - Last Filed: 08/07/22 01:42> Reevaluation #3: patient was placed into physician observation last evening at 17:55. Physical therapy evaluation was also ordered. Case Management was consulted as well. He did spike a fever to 102 overnight that resolved with Tylenol. He continues to report 10/10 bilateral knee pain and low back pain. He had no leukocytosis on lab work yesterday. Will plan to repeat his labs and inflamma tory markers today. He is unable to ambulate due to the pain in his legs and back. Clinically does not appear to be septic knee joint. Less likely epidural or spinal abscess without recurrent fevers and leukocytosis. Will re-evaluate And continue monitor his fever curve. He was given a dose of oxycodone and Tylenol this morning for pain. Med rec is pending. <MILLI Garcia - Last Filed: 08/07/22 17:40> Medications Administered Generic Name Dose Route Start Last Admin Trade Name Freq PRN Reason Stop Dose Admin Acetaminophen 975 mg 08/07/22 17:35 08/08/22 08:17 Acetaminophen 325 Mg Tablet PO 975 mg BID CLAU Administration Docusate Sodium 100 mg 08/07/22 21:00 08/08/22 08:16 Docusate Sodium 100 Mg Capsule PO Not Given BID CLAU Oxycodone HCl 5 mg 08/07/22 17:32 08/07/22 17:47 Oxycodone Hcl Immed Release 5 Mg Tablet PO 5 mg BID PRN Administration severe pain Discontinued Medications Generic Name Dose Route Start Last Admin Trade Name Freq PRN Reason Stop Dose Admin Acetaminophen 975 mg 08/06/22 23:44 08/06/22 23:49 Acetaminophen 325 Mg Tablet PO 08/06/22 23:45 975 mg ONCE ONE Administration Acetaminophen 975 mg 08/07/22 08:07 08/07/22 08:13 Acetaminophen 325 Mg Tablet PO 08/07/22 08:08 975 mg ONCE ONE Administration Sodium Chloride 500 mls @ 999 mls/hr 08/07/22 01:45 08/07/22 03:36 Ns IV 08/07/22 02:15 Infused .Q31M CLAU Infusion Iohexol 100 ml 08/07/22 19:25 08/07/22 19:25 Iohexol 350 Mg/Ml 100 Ml Infus..Btl IV 08/07/22 19:26 85 ml ONCE ONE Administration Oxycodone HCl 5 mg 08/07/22 08:07 08/07/22 08:13 Oxycodone Hcl Immed Release 5 Mg Tablet PO 08/07/22 08:08 5 mg ONCE ONE Administration <MILLI Lee - Last Filed: 08/06/22 17:56> Medications Administered Generic Name Dose Route Start Last Admin Trade Name Freq PRN Reason Stop Dose Admin Acetaminophen 975 mg 08/07/22 17:35 08/08/22 08:17 Acetaminophen 325 Mg Tablet PO 975 mg BID CLAU Administration Docusate Sodium 100 mg 08/07/22 21:00 08/08/22 08:16 Docusate Sodium 100 Mg Capsule PO Not Given BID CLAU Oxycodone HCl 5 mg 08/07/22 17:32 08/07/22 17:47 Oxycodone Hcl Immed Release 5 Mg Tablet PO 5 mg BID PRN Administration severe pain Discontinued Medications Generic Name Dose Route Start Last Admin Trade Name Freq PRN Reason Stop Dose Admin Acetaminophen 975 mg 08/06/22 23:44 08/06/22 23:49 Acetaminophen 325 Mg Tablet PO 08/06/22 23:45 975 mg ONCE ONE Administration Acetaminophen 975 mg 08/07/22 08:07 08/07/22 08:13 Acetaminophen 325 Mg Tablet PO 08/07/22 08:08 975 mg ONCE ONE Administration Sodium Chloride 500 mls @ 999 mls/hr 08/07/22 01:45 08/07/22 03:36 Ns IV 08/07/22 02:15 Infused .Q31M CLAU Infusion Iohexol 100 ml 08/07/22 19:25 08/07/22 19:25 Iohexol 350 Mg/Ml 100 Ml Infus..Btl IV 08/07/22 19:26 85 ml ONCE ONE Administration Oxycodone HCl 5 mg 08/07/22 08:07 08/07/22 08:13 Oxycodone Hcl Immed Release 5 Mg Tablet PO 08/07/22 08:08 5 mg ONCE ONE Administration <Rabia Retana MD - Last Filed: 08/07/22 01:42> Medications Administered Generic Name Dose Route Start Last Admin Trade Name Lupe PRN Reason Stop Dose Admin Acetaminophen 975 mg 08/07/22 17:35 08/08/22 08:17 Acetaminophen 325 Mg Tablet PO 975 mg BID CLAU Administration Docusate Sodium 100 mg 08/07/22 21:00 08/08/22 08:16 Docusate Sodium 100 Mg Capsule PO Not Given BID CLAU Oxycodone HCl 5 mg 08/07/22 17:32 08/07/22 17:47 Oxycodone Hcl Immed Release 5 Mg Tablet PO 5 mg BID PRN Administration severe pain Discontinued Medications Generic Name Dose Route Start Last Admin Trade Name Gurvinderq PRN Reason Stop Dose Admin Acetaminophen 975 mg 08/06/22 23:44 08/06/22 23:49 Acetaminophen 325 Mg Tablet PO 08/06/22 23:45 975 mg ONCE ONE Administration Acetaminophen 975 mg 08/07/22 08:07 08/07/22 08:13 Acetaminophen 325 Mg Tablet PO 08/07/22 08:08 975 mg ONCE ONE Administration Sodium Chloride 500 mls @ 999 mls/hr 08/07/22 01:45 08/07/22 03:36 Ns IV 08/07/22 02:15 Infused .Q31M CLAU Infusion Iohexol 100 ml 08/07/22 19:25 08/07/22 19:25 Iohexol 350 Mg/Ml 100 Ml Infus..Btl IV 08/07/22 19:26 85 ml ONCE ONE Administration Oxycodone HCl 5 mg 08/07/22 08:07 08/07/22 08:13 Oxycodone Hcl Immed Release 5 Mg Tablet PO 08/07/22 08:08 5 mg ONCE ONE Administration <MILLI Garcia - Last Filed: 08/07/22 17:40> Medical Decision Making [facility] Narrative Medical decision making narrative: Patient is an 82 year old assigned male at with a history of anemia and cervical spine disease presenting to the emergency department today with increased weakness and difficulty ambulating. Patient's physical exam was unremarkable. Patient's blood work was unremarkable. Patient's urine showed no a cute process. Patient's EKG was unremarkable. Patient's chest and bilateral knee x-rays showed no acute process however, there was evidence of arthritis in the knees. Patient's head and c-spine CT showed no acute process but did show chronic cervical spine disease. I explained my physical exam findings as well as all test results to the patient and the patient's nephew. I answered all questions asked by the patient and the patient's nephew. Patient's nephew expressed concern about the patient being discharged home and requested instead that the patient be placed in short term rehab. Patient verbalized agreement with this plan. Physical therapy evaluation and case management evaluation orders placed. <MILLI Lee - Last Filed: 08/06/22 17:56> Medical Records Medical records reviewed: Yes I reviewed the patient's medical records. <MILLI Lee - Last Filed: 08/06/22 17:56> Lab Data Lab results reviewed: Yes I reviewed the patient's lab results. <MILLI Lee - Last Filed: 08/06/22 17:56> Result diagrams: : 08/07/22 09:54 08/07/22 09:54 <MILLI Lee - Last Filed: 08/06/22 17:56> Labs: Lab Results 08/06/22 08/06/22 08/06/22 Range/Units 12:34 12:35 12:35 WBC 8.5 (4.8-10.8) X10*3/uL RBC 4.22 L (4.60-5.80) X10*6/uL Hgb 9.7 L (14.0-18.0) g/dl Hct 32.2 L (42.0-52.0) % MCV 76.3 L (80.0-98.0) fL MCH 23.0 L (27.0-33.0) pg MCHC 30.1 L (31.0-36.0) g/dl RDW 16.8 H (11.0-16.0) % Plt Count 275 (160-400) X10*3/uL MPV 8.9 L (9.4-12.4) fL Immature Gran % (Auto) 0.4 (0.0-0.4) % Neut % (Auto) 71.1 (45-73) % Lymph % (Auto) 13.7 L (20-40) % Ida % (Auto) 13.6 H (2-11) % Eos % (Auto) 0.4 (0-4) % Baso % (Auto) 0.8 (0-2) % Lymph # (Auto) 1.2 (1.2-4.9) X10*3/uL [place]da # (Auto) 1.2 (0.1-1.2) X10*3/uL Eos # (Auto) 0.0 (0.0-0.4) X10*3/uL Baso # (Auto) 0.1 (0.0-0.2) X10*3/uL Abs Immat Gran (auto) 0.03 (0.00-0.03) X10*3/uL Absolute Neuts (auto) 6.1 (2.0-8.3) x10*3/uL Absolute Nucleated RBC 0.000 (0.0-0.012) X10*3/uL Nucleated RBC % (auto) 0.0 (0.0-0.2) /100WBC ESR (0-15) MM/HR Sodium 138 (135-145) mmol/L Potassium 4.4 (3.3-5.1) mmol/L Chloride 103 (96-108) mmol/L Carbon Dioxide 25 (22-29) mmol/L Anion Gap 14 (12-20) BUN 25 H (9-16) mg/dL Creatinine 1.02 (0.5-1.4) mg/dL Estim Creat Clear Calc 44.1 Estimated GFR > 60 Random Glucose 91 (60-115) mg/dL Lactic Acid 1.2 (0.5-2.0) mmol/L Calcium 9.9 D (8.4-10.2) mg/dL Magnesium 2.0 (1.6-2.6) mg/dL Total Bilirubin 0.6 (0.0-1.0) mg/dL AST 27 (5-37) U/L ALT 14 (0-40) U/L Alkaline Phosphatase 70 (39-117) U/L Troponin I High Sens (<3.5-35.0) ng/L C-Reactive Protein (< or = 0.50) mg/dL Total Protein 7.2 (6.5-8.0) g/dL Albumin 4.1 (3.5-5.0) g/dL Urine Color Urine Appearance Urine pH (5.0-9.0) Ur Specific [place] (1.005-1.025) Urine Protein (Neg-Trace) mg/dL Urine Glucose (UA) (Negative) mg/dL Urine Ketones (Negative) mg/dL Urine Blood (Negative) Urine Nitrite (Negative) Ur Leukocyte Esterase (Negative) Urine RBC (0-2) /HPF Urine WBC (0-5) /HPF Ur Squamous Epith Cells (0-2) /HPF Urine Bacteria (None Seen) Hyaline Casts (0-2) /LPF Influenza Type A (PCR) (Negative) Influenza Type B (PCR) (Negative) RSV RNA Qual (PCR) (Negative) SARS-CoV-2 RNA (RT-PCR) (Negative) 08/06/22 08/06/22 08/06/22 Range/Units 12:35 12:37 16:52 WBC (4.8-10.8) X10*3/uL RBC (4.60-5.80) X10*6/uL Hgb (14.0-18.0) g/dl Hct (42.0-52.0) % MCV (80.0-98.0) fL MCH (27.0-33.0) pg MCHC (31.0-36.0) g/dl RDW (11.0-16.0) % Plt Count (160-400) X10*3/uL MPV (9.4-12.4) fL Immature Gran % (Auto) (0.0-0.4) % Neut % (Auto) (45-73) % Lymph % (Auto) (20-40) % Ida % (Auto) (2-11) % Eos % (Auto) (0-4) % Baso % (Auto) (0-2) % Lymph # (Auto) (1.2-4.9) X10*3/uL [place]da # (Auto) (0.1-1.2) X10*3/uL Eos # (Auto) (0.0-0.4) X10*3/uL Baso # (Auto) (0.0-0.2) X10*3/uL Abs Immat Gran (auto) (0.00-0.03) X10*3/uL Absolute Neuts (auto) (2.0-8.3) x10*3/uL Absolute Nucleated RBC (0.0-0.012) X10*3/uL Nucleated RBC % (auto) (0.0-0.2) /100WBC ESR (0-15) MM/HR Sodium (135-145) mmol/L Potassium (3.3-5.1) mmol/L Chloride (96-108) mmol/L Carbon Dioxide (22-29) mmol/L Anion Gap (12-20) BUN (9-16) mg/dL Creatinine (0.5-1.4) mg/dL Estim Creat Clear Calc Estimated GFR Random Glucose (60-115) mg/dL Lactic Acid (0.5-2.0) mmol/L Calcium (8.4-10.2) mg/dL Magnesium (1.6-2.6) mg/dL Total Bilirubin (0.0-1.0) mg/dL AST (5-37) U/L ALT (0-40) U/L Alkaline Phosphatase (39-117) U/L Troponin I High Sens 4.0 (<3.5-35.0) ng/L C-Reactive Protein (< or = 0.50) mg/dL Total Protein (6.5-8.0) g/dL Albumin (3.5-5.0) g/dL Urine Color Yellow Urine Appearance Clear Urine pH 5.5 (5.0-9.0) Ur Specific [place] 1.020 (1.005-1.025) Urine Protein Trace (Neg-Trace) mg/dL Urine Glucose (UA) Negative (Negative) mg/dL Urine Ketones 15 (Negative) mg/dL Urine Blood Small (1+) H (Negative) Urine Nitrite Negative (Negative) Ur Leukocyte Esterase Trace H (Negative) Urine RBC 11-20 H (0-2) /HPF Urine WBC 0-5 (0-5) /HPF Ur Squamous Epith Cells 0-2 (0-2) /HPF Urine Bacteria None Seen (None Seen) Hyaline Casts 0-2 (0-2) /LPF Influenza Type A (PCR) NEGATIVE (Negative) Influenza Type B (PCR) NEGATIVE (Negative) RSV RNA Qual (PCR) NEGATIVE (Negative) SARS-CoV-2 RNA (RT-PCR) NEGATIVE (Negative) 11/11/22 11/11/22 11/11/22 Range/Units 23:54 23:54 23:54 WBC 10.6 (4.8-10.8) X10*3/uL RBC 3.73 L (4.60-5.80) X10*6/uL Hgb 8.8 L (14.0-18.0) g/dl Hct 28.0 L (42.0-52.0) % MCV 75.1 L (80.0-98.0) fL MCH 23.6 L (27.0-33.0) pg MCHC 31.4 (31.0-36.0) g/dl RDW 16.5 H (11.0-16.0) % Plt Count 260 (160-400) X10*3/uL MPV 9.1 L (9.4-12.4) fL Immature Gran % (Auto) 0.3 (0.0-0.4) % Neut % (Auto) 77.2 H (45-73) % Lymph % (Auto) 9.8 L (20-40) % Ida % (Auto) 12.0 H (2-11) % Eos % (Auto) 0.1 (0-4) % Baso % (Auto) 0.6 (0-2) % Lymph # (Auto) 1.0 L (1.2-4.9) X10*3/uL [place]da # (Auto) 1.3 H (0.1-1.2) X10*3/uL Eos # (Auto) 0.0 (0.0-0.4) X10*3/uL Baso # (Auto) 0.1 (0.0-0.2) X10*3/uL Abs Immat Gran (auto) 0.03 (0.00-0.03) X10*3/uL Absolute Neuts (auto) 8.2 (2.0-8.3) x10*3/uL Absolute Nucleated RBC 0.000 (0.0-0.012) X10*3/uL Nucleated RBC % (auto) 0.0 (0.0-0.2) /100WBC ESR (0-15) MM/HR Sodium 137 (135-145) mmol/L Potassium 4.0 (3.3-5.1) mmol/L Chloride 102 (96-108) mmol/L Carbon Dioxide 22 (22-29) mmol/L Anion Gap 17 (12-20) BUN 22 H (9-16) mg/dL Creatinine 1.03 (0.5-1.4) mg/dL Estim Creat Clear Calc 43.7 Estimated GFR > 60 Random Glucose 110 (60-115) mg/dL Lactic Acid 0.8 (0.5-2.0) mmol/L Calcium 9.5 (8.4-10.2) mg/dL Magnesium (1.6-2.6) mg/dL Total Bilirubin 0.6 (0.0-1.0) mg/dL AST 37 (5-37) U/L ALT 19 (0-40) U/L Alkaline Phosphatase 74 D (39-117) U/L Troponin I High Sens (<3.5-35.0) ng/L C-Reactive Protein (< or = 0.50) mg/dL Total Protein 6.9 (6.5-8.0) g/dL Albumin 3.9 (3.5-5.0) g/dL Urine Color Urine Appearance Urine pH (5.0-9.0) Ur Specific [place] (1.005-1.025) Urine Protein (Neg-Trace) mg/dL Urine Glucose (UA) (Negative) mg/dL Urine Ketones (Negative) mg/dL Urine Blood (Negative) Urine Nitrite (Negative) Ur Leukocyte Esterase (Negative) Urine RBC (0-2) /HPF Urine WBC (0-5) /HPF Ur Squamous Epith Cells (0-2) /HPF Urine Bacteria (None Seen) Hyaline Casts (0-2) /LPF Influenza Type A (PCR) (Negative) Influenza Type B (PCR) (Negative) RSV RNA Qual (PCR) (Negative) SARS-CoV-2 RNA (RT-PCR) (Negative) 08/06/22 08/07/22 08/07/22 Range/Units 23:54 09:54 09:54 WBC 10.0 (4.8-10.8) X10*3/uL RBC 3.68 L (4.60-5.80) X10*6/uL Hgb 8.9 L (14.0-18.0) g/dl Hct 27.7 L (42.0-52.0) % MCV 75.3 L (80.0-98.0) fL MCH 24.2 L (27.0-33.0) pg MCHC 32.1 (31.0-36.0) g/dl RDW 16.7 H (11.0-16.0) % Plt Count 251 (160-400) X10*3/uL MPV 8.8 L (9.4-12.4) fL Immature Gran % (Auto) 0.3 (0.0-0.4) % Neut % (Auto) 70.5 (45-73) % Lymph % (Auto) 12.7 L (20-40) % Ida % (Auto) 15.6 H (2-11) % Eos % (Auto) 0.3 (0-4) % Baso % (Auto) 0.6 (0-2) % Lymph # (Auto) 1.3 (1.2-4.9) X10*3/uL [place]da # (Auto) 1.6 H (0.1-1.2) X10*3/uL Eos # (Auto) 0.0 (0.0-0.4) X10*3/uL Baso # (Auto) 0.1 (0.0-0.2) X10*3/uL Abs Immat Gran (auto) 0.03 (0.00-0.03) X10*3/uL Absolute Neuts (auto) 7.1 (2.0-8.3) x10*3/uL Absolute Nucleated RBC 0.000 (0.0-0.012) X10*3/uL Nucleated RBC % (auto) 0.0 (0.0-0.2) /100WBC ESR 53 H (0-15) MM/HR Sodium (135-145) mmol/L Potassium (3.3-5.1) mmol/L Chloride (96-108) mmol/L Carbon Dioxide (22-29) mmol/L Anion Gap (12-20) BUN (9-16) mg/dL Creatinine (0.5-1.4) mg/dL Estim Creat Clear Calc Estimated GFR Random Glucose (60-115) mg/dL Lactic Acid (0.5-2.0) mmol/L Calcium (8.4-10.2) mg/dL Magnesium (1.6-2.6) mg/dL Total Bilirubin (0.0-1.0) mg/dL AST (5-37) U/L ALT (0-40) U/L Alkaline Phosphatase (39-117) U/L Troponin I High Sens (<3.5-35.0) ng/L C-Reactive Protein (< or = 0.50) mg/dL Total Protein (6.5-8.0) g/dL Albumin (3.5-5.0) g/dL Urine Color Urine Appearance Urine pH (5.0-9.0) Ur Specific [place] (1.005-1.025) Urine Protein (Neg-Trace) mg/dL Urine Glucose (UA) (Negative) mg/dL Urine Ketones (Negative) mg/dL Urine Blood (Negative) Urine Nitrite (Negative) Ur Leukocyte Esterase (Negative) Urine RBC (0-2) /HPF Urine WBC (0-5) /HPF Ur Squamous Epith Cells (0-2) /HPF Urine Bacteria (None Seen) Hyaline Casts (0-2) /LPF Influenza Type A (PCR) NEGATIVE (Negative) Influenza Type B (PCR) NEGATIVE (Negative) RSV RNA Qual (PCR) NEGATIVE (Negative) SARS-CoV-2 RNA (RT-PCR) NEGATIVE (Negative) 08/07/22 Range/Units 09:54 WBC (4.8-10.8) X10*3/uL RBC (4.60-5.80) X10*6/uL Hgb (14.0-18.0) g/dl Hct (42.0-52.0) % MCV (80.0-98.0) fL MCH (27.0-33.0) pg MCHC (31.0-36.0) g/dl RDW (11.0-16.0) % Plt Count (160-400) X10*3/uL MPV (9.4-12.4) fL Immature Gran % (Auto) (0.0-0.4) % Neut % (Auto) (45-73) % Lymph % (Auto) (20-40) % [place] % (Auto) (2-11) % Eos % (Auto) (0-4) % Baso % (Auto) (0-2) % Lymph # (Auto) (1.2-4.9) X10*3/uL [place] # (Auto) (0.1-1.2) X10*3/uL Eos # (Auto) (0.0-0.4) X10*3/uL Baso # (Auto) (0.0-0.2) X10*3/uL Abs Immat Gran (auto) (0.00-0.03) X10*3/uL Absolute Neuts (auto) (2.0-8.3) x10*3/uL Absolute Nucleated RBC (0.0-0.012) X10*3/uL Nucleated RBC % (auto) (0.0-0.2) /100WBC ESR (0-15) MM/HR Sodium 137 (135-145) mmol/L Potassium 3.7 (3.3-5.1) mmol/L Chloride 104 (96-108) mmol/L Carbon Dioxide 21 L (22-29) mmol/L Anion Gap 16 (12-20) BUN 25 H (9-16) mg/dL Creatinine 1.06 (0.5-1.4) mg/dL Estim Creat Clear Calc 42.4 Estimated GFR > 60 Random Glucose 115 (60-115) mg/dL Lactic Acid (0.5-2.0) mmol/L Calcium 9.1 (8.4-10.2) mg/dL Magnesium (1.6-2.6) mg/dL Total Bilirubin (0.0-1.0) mg/dL AST (5-37) U/L ALT (0-40) U/L Alkaline Phosphatase (39-117) U/L Troponin I High Sens (<3.5-35.0) ng/L C-Reactive Protein 19.80 H (< or = 0.50) mg/dL Total Protein (6.5-8.0) g/dL Albumin (3.5-5.0) g/dL Urine Color Urine Appearance Urine pH (5.0-9.0) Ur Specific [place] (1.005-1.025) Urine Protein (Neg-Trace) mg/dL Urine Glucose (UA) (Negative) mg/dL Urine Ketones (Negative) mg/dL Urine Blood (Negative) Urine Nitrite (Negative) Ur Leukocyte Esterase (Negative) Urine RBC (0-2) /HPF Urine WBC (0-5) /HPF Ur Squamous Epith Cells (0-2) /HPF Urine Bacteria (None Seen) Hyaline Casts (0-2) /LPF Influenza Type A (PCR) (Negative) Influenza Type B (PCR) (Negative) RSV RNA Qual (PCR) (Negative) SARS-CoV-2 RNA (RT-PCR) (Negative) <MILLI Lee - Last Filed: 08/06/22 17:56> Lab Results 08/06/22 08/06/22 08/06/22 Range/Units 12:34 12:35 12:35 WBC 8.5 (4.8-10.8) X10*3/uL RBC 4.22 L (4.60-5.80) X10*6/uL Hgb 9.7 L (14.0-18.0) g/dl Hct 32.2 L (42.0-52.0) % MCV 76.3 L (80.0-98.0) fL MCH 23.0 L (27.0-33.0) pg MCHC 30.1 L (31.0-36.0) g/dl RDW 16.8 H (11.0-16.0) % Plt Count 275 (160-400) X10*3/uL MPV 8.9 L (9.4-12.4) fL Immature Gran % (Auto) 0.4 (0.0-0.4) % Neut % (Auto) 71.1 (45-73) % Lymph % (Auto) 13.7 L (20-40) % Ida % (Auto) 13.6 H (2-11) % Eos % (Auto) 0.4 (0-4) % Baso % (Auto) 0.8 (0-2) % Lymph # (Auto) 1.2 (1.2-4.9) X10*3/uL [place] # (Auto) 1.2 (0.1-1.2) X10*3/uL Eos # (Auto) 0.0 (0.0-0.4) X10*3/uL Baso # (Auto) 0.1 (0.0-0.2) X10*3/uL Abs Immat Gran (auto) 0.03 (0.00-0.03) X10*3/uL Absolute Neuts (auto) 6.1 (2.0-8.3) x10*3/uL Absolute Nucleated RBC 0.000 (0.0-0.012) X10*3/uL Nucleated RBC % (auto) 0.0 (0.0-0.2) /100WBC ESR (0-15) MM/HR Sodium 138 (135-145) mmol/L Potassium 4.4 (3.3-5.1) mmol/L Chloride 103 (96-108) mmol/L Carbon Dioxide 25 (22-29) mmol/L Anion Gap 14 (12-20) BUN 25 H (9-16) mg/dL Creatinine 1.02 (0.5-1.4) mg/dL Estim Creat Clear Calc 44.1 Estimated GFR > 60 Random Glucose 91 (60-115) mg/dL Lactic Acid 1.2 (0.5-2.0) mmol/L Calcium 9.9 D (8.4-10.2) mg/dL Magnesium 2.0 (1.6-2.6) mg/dL Total Bilirubin 0.6 (0.0-1.0) mg/dL AST 27 (5-37) U/L ALT 14 (0-40) U/L Alkaline Phosphatase 70 (39-117) U/L Troponin I High Sens (<3.5-35.0) ng/L C-Reactive Protein (< or = 0.50) mg/dL Total Protein 7.2 (6.5-8.0) g/dL Albumin 4.1 (3.5-5.0) g/dL Urine Color Urine Appearance Urine pH (5.0-9.0) Ur Specific [place] (1.005-1.025) Urine Protein (Neg-Trace) mg/dL Urine Glucose (UA) (Negative) mg/dL Urine Ketones (Negative) mg/dL Urine Blood (Negative) Urine Nitrite (Negative) Ur Leukocyte Esterase (Negative) Urine RBC (0-2) /HPF Urine WBC (0-5) /HPF Ur Squamous Epith Cells (0-2) /HPF Urine Bacteria (None Seen) Hyaline Casts (0-2) /LPF Influenza Type A (PCR) (Negative) Influenza Type B (PCR) (Negative) RSV RNA Qual (PCR) (Negative) SARS-CoV-2 RNA (RT-PCR) (Negative) 08/06/22 08/06/22 08/06/22 Range/Units 12:35 12:37 16:52 WBC (4.8-10.8) X10*3/uL RBC (4.60-5.80) X10*6/uL Hgb (14.0-18.0) g/dl Hct (42.0-52.0) % MCV (80.0-98.0) fL MCH (27.0-33.0) pg MCHC (31.0-36.0) g/dl RDW (11.0-16.0) % Plt Count (160-400) X10*3/uL MPV (9.4-12.4) fL Immature Gran % (Auto) (0.0-0.4) % Neut % (Auto) (45-73) % Lymph % (Auto) (20-40) % [place] % (Auto) (2-11) % Eos % (Auto) (0-4) % Baso % (Auto) (0-2) % Lymph # (Auto) (1.2-4.9) X10*3/uL [place] # (Auto) (0.1-1.2) X10*3/uL Eos # (Auto) (0.0-0.4) X10*3/uL Baso # (Auto) (0.0-0.2) X10*3/uL Abs Immat Gran (auto) (0.00-0.03) X10*3/uL Absolute Neuts (auto) (2.0-8.3) x10*3/uL Absolute Nucleated RBC (0.0-0.012) X10*3/uL Nucleated RBC % (auto) (0.0-0.2) /100WBC ESR (0-15) MM/HR Sodium (135-145) mmol/L Potassium (3.3-5.1) mmol/L Chloride (96-108) mmol/L Carbon Dioxide (22-29) mmol/L Anion Gap (12-20) BUN (9-16) mg/dL Creatinine (0.5-1.4) mg/dL Estim Creat Clear Calc Estimated GFR Random Glucose (60-115) mg/dL Lactic Acid (0.5-2.0) mmol/L Calcium (8.4-10.2) mg/dL Magnesium (1.6-2.6) mg/dL Total Bilirubin (0.0-1.0) mg/dL AST (5-37) U/L ALT (0-40) U/L Alkaline Phosphatase (39-117) U/L Troponin I High Sens 4.0 (<3.5-35.0) ng/L C-Reactive Protein (< or = 0.50) mg/dL Total Protein (6.5-8.0) g/dL Albumin (3.5-5.0) g/dL Urine Color Yellow Urine Appearance Clear Urine pH 5.5 (5.0-9.0) Ur Specific [place] 1.020 (1.005-1.025) Urine Protein Trace (Neg-Trace) mg/dL Urine Glucose (UA) Negative (Negative) mg/dL Urine Ketones 15 (Negative) mg/dL Urine Blood Small (1+) H (Negative) Urine Nitrite Negative (Negative) Ur Leukocyte Esterase Trace H (Negative) Urine RBC 11-20 H (0-2) /HPF Urine WBC 0-5 (0-5) /HPF Ur Squamous Epith Cells 0-2 (0-2) /HPF Urine Bacteria None Seen (None Seen) Hyaline Casts 0-2 (0-2) /LPF Influenza Type A (PCR) NEGATIVE (Negative) Influenza Type B (PCR) NEGATIVE (Negative) RSV RNA Qual (PCR) NEGATIVE (Negative) SARS-CoV-2 RNA (RT-PCR) NEGATIVE (Negative) 08/06/22 08/06/22 08/06/22 Range/Units 23:54 23:54 23:54 WBC 10.6 (4.8-10.8) X10*3/uL RBC 3.73 L (4.60-5.80) X10*6/uL Hgb 8.8 L (14.0-18.0) g/dl Hct 28.0 L (42.0-52.0) % MCV 75.1 L (80.0-98.0) fL MCH 23.6 L (27.0-33.0) pg MCHC 31.4 (31.0-36.0) g/dl RDW 16.5 H (11.0-16.0) % Plt Count 260 (160-400) X10*3/uL MPV 9.1 L (9.4-12.4) fL Immature Gran % (Auto) 0.3 (0.0-0.4) % Neut % (Auto) 77.2 H (45-73) % Lymph % (Auto) 9.8 L (20-40) % [place] % (Auto) 12.0 H (2-11) % Eos % (Auto) 0.1 (0-4) % Baso % (Auto) 0.6 (0-2) % Lymph # (Auto) 1.0 L (1.2-4.9) X10*3/uL [place] # (Auto) 1.3 H (0.1-1.2) X10*3/uL Eos # (Auto) 0.0 (0.0-0.4) X10*3/uL Baso # (Auto) 0.1 (0.0-0.2) X10*3/uL Abs Immat Gran (auto) 0.03 (0.00-0.03) X10*3/uL Absolute Neuts (auto) 8.2 (2.0-8.3) x10*3/uL Absolute Nucleated RBC 0.000 (0.0-0.012) X10*3/uL Nucleated RBC % (auto) 0.0 (0.0-0.2) /100WBC ESR (0-15) MM/HR Sodium 137 (135-145) mmol/L Potassium 4.0 (3.3-5.1) mmol/L Chloride 102 (96-108) mmol/L Carbon Dioxide 22 (22-29) mmol/L Anion Gap 17 (12-20) BUN 22 H (9-16) mg/dL Creatinine 1.03 (0.5-1.4) mg/dL Estim Creat Clear Calc 43.7 Estimated GFR > 60 Random Glucose 110 (60-115) mg/dL Lactic Acid 0.8 (0.5-2.0) mmol/L Calcium 9.5 (8.4-10.2) mg/dL Magnesium (1.6-2.6) mg/dL Total Bilirubin 0.6 (0.0-1.0) mg/dL AST 37 (5-37) U/L ALT 19 (0-40) U/L Alkaline Phosphatase 74 D (39-117) U/L Troponin I High Sens (<3.5-35.0) ng/L C-Reactive Protein (< or = 0.50) mg/dL Total Protein 6.9 (6.5-8.0) g/dL Albumin 3.9 (3.5-5.0) g/dL Urine Color Urine Appearance Urine pH (5.0-9.0) Ur Specific [place] (1.005-1.025) Urine Protein (Neg-Trace) mg/dL Urine Glucose (UA) (Negative) mg/dL Urine Ketones (Negative) mg/dL Urine Blood (Negative) Urine Nitrite (Negative) Ur Leukocyte Esterase (Negative) Urine RBC (0-2) /HPF Urine WBC (0-5) /HPF Ur Squamous Epith Cells (0-2) /HPF Urine Bacteria (None Seen) Hyaline Casts (0-2) /LPF Influenza Type A (PCR) (Negative) Influenza Type B (PCR) (Negative) RSV RNA Qual (PCR) (Negative) SARS-CoV-2 RNA (RT-PCR) (Negative) 08/06/22 08/07/22 08/07/22 Range/Units 23:54 09:54 09:54 WBC 10.0 (4.8-10.8) X10*3/uL RBC 3.68 L (4.60-5.80) X10*6/uL Hgb 8.9 L (14.0-18.0) g/dl Hct 27.7 L (42.0-52.0) % MCV 75.3 L (80.0-98.0) fL MCH 24.2 L (27.0-33.0) pg MCHC 32.1 (31.0-36.0) g/dl RDW 16.7 H (11.0-16.0) % Plt Count 251 (160-400) X10*3/uL MPV 8.8 L (9.4-12.4) fL Immature Gran % (Auto) 0.3 (0.0-0.4) % Neut % (Auto) 70.5 (45-73) % Lymph % (Auto) 12.7 L (20-40) % [place] % (Auto) 15.6 H (2-11) % Eos % (Auto) 0.3 (0-4) % Baso % (Auto) 0.6 (0-2) % Lymph # (Auto) 1.3 (1.2-4.9) X10*3/uL [place] # (Auto) 1.6 H (0.1-1.2) X10*3/uL Eos # (Auto) 0.0 (0.0-0.4) X10*3/uL Baso # (Auto) 0.1 (0.0-0.2) X10*3/uL Abs Immat Gran (auto) 0.03 (0.00-0.03) X10*3/uL Absolute Neuts (auto) 7.1 (2.0-8.3) x10*3/uL Absolute Nucleated RBC 0.000 (0.0-0.012) X10*3/uL Nucleated RBC % (auto) 0.0 (0.0-0.2) /100WBC ESR 53 H (0-15) MM/HR Sodium (135-145) mmol/L Potassium (3.3-5.1) mmol/L Chloride (96-108) mmol/L Carbon Dioxide (22-29) mmol/L Anion Gap (12-20) BUN (9-16) mg/dL Creatinine (0.5-1.4) mg/dL Estim Creat Clear Calc Estimated GFR Random Glucose (60-115) mg/dL Lactic Acid (0.5-2.0) mmol/L Calcium (8.4-10.2) mg/dL Magnesium (1.6-2.6) mg/dL Total Bilirubin (0.0-1.0) mg/dL AST (5-37) U/L ALT (0-40) U/L Alkaline Phosphatase (39-117) U/L Troponin I High Sens (<3.5-35.0) ng/L C-Reactive Protein (< or = 0.50) mg/dL Total Protein (6.5-8.0) g/dL Albumin (3.5-5.0) g/dL Urine Color Urine Appearance Urine pH (5.0-9.0) Ur Specific [place] (1.005-1.025) Urine Protein (Neg-Trace) mg/dL Urine Glucose (UA) (Negative) mg/dL Urine Ketones (Negative) mg/dL Urine Blood (Negative) Urine Nitrite (Negative) Ur Leukocyte Esterase (Negative) Urine RBC (0-2) /HPF Urine WBC (0-5) /HPF Ur Squamous Epith Cells (0-2) /HPF Urine Bacteria (None Seen) Hyaline Casts (0-2) /LPF Influenza Type A (PCR) NEGATIVE (Negative) Influenza Type B (PCR) NEGATIVE (Negative) RSV RNA Qual (PCR) NEGATIVE (Negative) SARS-CoV-2 RNA (RT-PCR) NEGATIVE (Negative) 08/07/22 Range/Units 09:54 WBC (4.8-10.8) X10*3/uL RBC (4.60-5.80) X10*6/uL Hgb (14.0-18.0) g/dl Hct (42.0-52.0) % MCV (80.0-98.0) fL MCH (27.0-33.0) pg MCHC (31.0-36.0) g/dl RDW (11.0-16.0) % Plt Count (160-400) X10*3/uL MPV (9.4-12.4) fL Immature Gran % (Auto) (0.0-0.4) % Neut % (Auto) (45-73) % Lymph % (Auto) (20-40) % [place] % (Auto) (2-11) % Eos % (Auto) (0-4) % Baso % (Auto) (0-2) % Lymph # (Auto) (1.2-4.9) X10*3/uL [place] # (Auto) (0.1-1.2) X10*3/uL Eos # (Auto) (0.0-0.4) X10*3/uL Baso # (Auto) (0.0-0.2) X10*3/uL Abs Immat Gran (auto) (0.00-0.03) X10*3/uL Absolute Neuts (auto) (2.0-8.3) x10*3/uL Absolute Nucleated RBC (0.0-0.012) X10*3/uL Nucleated RBC % (auto) (0.0-0.2) /100WBC ESR (0-15) MM/HR Sodium 137 (135-145) mmol/L Potassium 3.7 (3.3-5.1) mmol/L Chloride 104 (96-108) mmol/L Carbon Dioxide 21 L (22-29) mmol/L Anion Gap 16 (12-20) BUN 25 H (9-16) mg/dL Creatinine 1.06 (0.5-1.4) mg/dL Estim Creat Clear Calc 42.4 Estimated GFR > 60 Random Glucose 115 (60-115) mg/dL Lactic Acid (0.5-2.0) mmol/L Calcium 9.1 (8.4-10.2) mg/dL Magnesium (1.6-2.6) mg/dL Total Bilirubin (0.0-1.0) mg/dL AST (5-37) U/L ALT (0-40) U/L Alkaline Phosphatase (39-117) U/L Troponin I High Sens (<3.5-35.0) ng/L C-Reactive Protein 19.80 H (< or = 0.50) mg/dL Total Protein (6.5-8.0) g/dL Albumin (3.5-5.0) g/dL Urine Color Urine Appearance Urine pH (5.0-9.0) Ur Specific [place] (1.005-1.025) Urine Protein (Neg-Trace) mg/dL Urine Glucose (UA) (Negative) mg/dL Urine Ketones (Negative) mg/dL Urine Blood (Negative) Urine Nitrite (Negative) Ur Leukocyte Esterase (Negative) Urine RBC (0-2) /HPF Urine WBC (0-5) /HPF Ur Squamous Epith Cells (0-2) /HPF Urine Bacteria (None Seen) Hyaline Casts (0-2) /LPF Influenza Type A (PCR) (Negative) Influenza Type B (PCR) (Negative) RSV RNA Qual (PCR) (Negative) SARS-CoV-2 RNA (RT-PCR) (Negative) <Rabia Retana MD - Last Filed: 08/07/22 01:42> Lab Results 08/06/22 08/06/22 08/06/22 Range/Units 12:34 12:35 12:35 WBC 8.5 (4.8-10.8) X10*3/uL RBC 4.22 L (4.60-5.80) X10*6/uL Hgb 9.7 L (14.0-18.0) g/dl Hct 32.2 L (42.0-52.0) % MCV 76.3 L (80.0-98.0) fL MCH 23.0 L (27.0-33.0) pg MCHC 30.1 L (31.0-36.0) g/dl RDW 16.8 H (11.0-16.0) % Plt Count 275 (160-400) X10*3/uL MPV 8.9 L (9.4-12.4) fL Immature Gran % (Auto) 0.4 (0.0-0.4) % Neut % (Auto) 71.1 (45-73) % Lymph % (Auto) 13.7 L (20-40) % [place] % (Auto) 13.6 H (2-11) % Eos % (Auto) 0.4 (0-4) % Baso % (Auto) 0.8 (0-2) % Lymph # (Auto) 1.2 (1.2-4.9) X10*3/uL [place] # (Auto) 1.2 (0.1-1.2) X10*3/uL Eos # (Auto) 0.0 (0.0-0.4) X10*3/uL Baso # (Auto) 0.1 (0.0-0.2) X10*3/uL Abs Immat Gran (auto) 0.03 (0.00-0.03) X10*3/uL Absolute Neuts (auto) 6.1 (2.0-8.3) x10*3/uL Absolute Nucleated RBC 0.000 (0.0-0.012) X10*3/uL Nucleated RBC % (auto) 0.0 (0.0-0.2) /100WBC ESR (0-15) MM/HR Sodium 138 (135-145) mmol/L Potassium 4.4 (3.3-5.1) mmol/L Chloride 103 (96-108) mmol/L Carbon Dioxide 25 (22-29) mmol/L Anion Gap 14 (12-20) BUN 25 H (9-16) mg/dL Creatinine 1.02 (0.5-1.4) mg/dL Estim Creat Clear Calc 44.1 Estimated GFR > 60 Random Glucose 91 (60-115) mg/dL Lactic Acid 1.2 (0.5-2.0) mmol/L Calcium 9.9 D (8.4-10.2) mg/dL Magnesium 2.0 (1.6-2.6) mg/dL Total Bilirubin 0.6 (0.0-1.0) mg/dL AST 27 (5-37) U/L ALT 14 (0-40) U/L Alkaline Phosphatase 70 (39-117) U/L Troponin I High Sens (<3.5-35.0) ng/L C-Reactive Protein (< or = 0.50) mg/dL Total Protein 7.2 (6.5-8.0) g/dL Albumin 4.1 (3.5-5.0) g/dL Urine Color Urine Appearance Urine pH (5.0-9.0) Ur Specific [place] (1.005-1.025) Urine Protein (Neg-Trace) mg/dL Urine Glucose (UA) (Negative) mg/dL Urine Ketones (Negative) mg/dL Urine Blood (Negative) Urine Nitrite (Negative) Ur Leukocyte Esterase (Negative) Urine RBC (0-2) /HPF Urine WBC (0-5) /HPF Ur Squamous Epith Cells (0-2) /HPF Urine Bacteria (None Seen) Hyaline Casts (0-2) /LPF Influenza Type A (PCR) (Negative) Influenza Type B (PCR) (Negative) RSV RNA Qual (PCR) (Negative) SARS-CoV-2 RNA (RT-PCR) (Negative) 08/06/22 08/06/22 08/06/22 Range/Units 12:35 12:37 16:52 WBC (4.8-10.8) X10*3/uL RBC (4.60-5.80) X10*6/uL Hgb (14.0-18.0) g/dl Hct (42.0-52.0) % MCV (80.0-98.0) fL MCH (27.0-33.0) pg MCHC (31.0-36.0) g/dl RDW (11.0-16.0) % Plt Count (160-400) X10*3/uL MPV (9.4-12.4) fL Immature Gran % (Auto) (0.0-0.4) % Neut % (Auto) (45-73) % Lymph % (Auto) (20-40) % [place]da % (Auto) (2-11) % Eos % (Auto) (0-4) % Baso % (Auto) (0-2) % Lymph # (Auto) (1.2-4.9) X10*3/uL [place] # (Auto) (0.1-1.2) X10*3/uL Eos # (Auto) (0.0-0.4) X10*3/uL Baso # (Auto) (0.0-0.2) X10*3/uL Abs Immat Gran (auto) (0.00-0.03) X10*3/uL Absolute Neuts (auto) (2.0-8.3) x10*3/uL Absolute Nucleated RBC (0.0-0.012) X10*3/uL Nucleated RBC % (auto) (0.0-0.2) /100WBC ESR (0-15) MM/HR Sodium (135-145) mmol/L Potassium (3.3-5.1) mmol/L Chloride (96-108) mmol/L Carbon Dioxide (22-29) mmol/L Anion Gap (12-20) BUN (9-16) mg/dL Creatinine (0.5-1.4) mg/dL Estim Creat Clear Calc Estimated GFR Random Glucose (60-115) mg/dL Lactic Acid (0.5-2.0) mmol/L Calcium (8.4-10.2) mg/dL Magnesium (1.6-2.6) mg/dL Total Bilirubin (0.0-1.0) mg/dL AST (5-37) U/L ALT (0-40) U/L Alkaline Phosphatase (39-117) U/L Troponin I High Sens 4.0 (<3.5-35.0) ng/L C-Reactive Protein (< or = 0.50) mg/dL Total Protein (6.5-8.0) g/dL Albumin (3.5-5.0) g/dL Urine Color Yellow Urine Appearance Clear Urine pH 5.5 (5.0-9.0) Ur Specific [place] 1.020 (1.005-1.025) Urine Protein Trace (Neg-Trace) mg/dL Urine Glucose (UA) Negative (Negative) mg/dL Urine Ketones 15 (Negative) mg/dL Urine Blood Small (1+) H (Negative) Urine Nitrite Negative (Negative) Ur Leukocyte Esterase Trace H (Negative) Urine RBC 11-20 H (0-2) /HPF Urine WBC 0-5 (0-5) /HPF Ur Squamous Epith Cells 0-2 (0-2) /HPF Urine Bacteria None Seen (None Seen) Hyaline Casts 0-2 (0-2) /LPF Influenza Type A (PCR) NEGATIVE (Negative) Influenza Type B (PCR) NEGATIVE (Negative) RSV RNA Qual (PCR) NEGATIVE (Negative) SARS-CoV-2 RNA (RT-PCR) NEGATIVE (Negative) 08/06/22 08/06/22 08/06/22 Range/Units 23:54 23:54 23:54 WBC 10.6 (4.8-10.8) X10*3/uL RBC 3.73 L (4.60-5.80) X10*6/uL Hgb 8.8 L (14.0-18.0) g/dl Hct 28.0 L (42.0-52.0) % MCV 75.1 L (80.0-98.0) fL MCH 23.6 L (27.0-33.0) pg MCHC 31.4 (31.0-36.0) g/dl RDW 16.5 H (11.0-16.0) % Plt Count 260 (160-400) X10*3/uL MPV 9.1 L (9.4-12.4) fL Immature Gran % (Auto) 0.3 (0.0-0.4) % Neut % (Auto) 77.2 H (45-73) % Lymph % (Auto) 9.8 L (20-40) % [place] % (Auto) 12.0 H (2-11) % Eos % (Auto) 0.1 (0-4) % Baso % (Auto) 0.6 (0-2) % Lymph # (Auto) 1.0 L (1.2-4.9) X10*3/uL [place] # (Auto) 1.3 H (0.1-1.2) X10*3/uL Eos # (Auto) 0.0 (0.0-0.4) X10*3/uL Baso # (Auto) 0.1 (0.0-0.2) X10*3/uL Abs Immat Gran (auto) 0.03 (0.00-0.03) X10*3/uL Absolute Neuts (auto) 8.2 (2.0-8.3) x10*3/uL Absolute Nucleated RBC 0.000 (0.0-0.012) X10*3/uL Nucleated RBC % (auto) 0.0 (0.0-0.2) /100WBC ESR (0-15) MM/HR Sodium 137 (135-145) mmol/L Potassium 4.0 (3.3-5.1) mmol/L Chloride 102 (96-108) mmol/L Carbon Dioxide 22 (22-29) mmol/L Anion Gap 17 (12-20) BUN 22 H (9-16) mg/dL Creatinine 1.03 (0.5-1.4) mg/dL Estim Creat Clear Calc 43.7 Estimated GFR > 60 Random Glucose 110 (60-115) mg/dL Lactic Acid 0.8 (0.5-2.0) mmol/L Calcium 9.5 (8.4-10.2) mg/dL Magnesium (1.6-2.6) mg/dL Total Bilirubin 0.6 (0.0-1.0) mg/dL AST 37 (5-37) U/L ALT 19 (0-40) U/L Alkaline Phosphatase 74 D (39-117) U/L Troponin I High Sens (<3.5-35.0) ng/L C-Reactive Protein (< or = 0.50) mg/dL Total Protein 6.9 (6.5-8.0) g/dL Albumin 3.9 (3.5-5.0) g/dL Urine Color Urine Appearance Urine pH (5.0-9.0) Ur Specific [place] (1.005-1.025) Urine Protein (Neg-Trace) mg/dL Urine Glucose (UA) (Negative) mg/dL Urine Ketones (Negative) mg/dL Urine Blood (Negative) Urine Nitrite (Negative) Ur Leukocyte Esterase (Negative) Urine RBC (0-2) /HPF Urine WBC (0-5) /HPF Ur Squamous Epith Cells (0-2) /HPF Urine Bacteria (None Seen) Hyaline Casts (0-2) /LPF Influenza Type A (PCR) (Negative) Influenza Type B (PCR) (Negative) RSV RNA Qual (PCR) (Negative) SARS-CoV-2 RNA (RT-PCR) (Negative) 08/06/22 08/07/22 08/07/22 Range/Units 23:54 09:54 09:54 WBC 10.0 (4.8-10.8) X10*3/uL RBC 3.68 L (4.60-5.80) X10*6/uL Hgb 8.9 L (14.0-18.0) g/dl Hct 27.7 L (42.0-52.0) % MCV 75.3 L (80.0-98.0) fL MCH 24.2 L (27.0-33.0) pg MCHC 32.1 (31.0-36.0) g/dl RDW 16.7 H (11.0-16.0) % Plt Count 251 (160-400) X10*3/uL MPV 8.8 L (9.4-12.4) fL Immature Gran % (Auto) 0.3 (0.0-0.4) % Neut % (Auto) 70.5 (45-73) % Lymph % (Auto) 12.7 L (20-40) % [place] % (Auto) 15.6 H (2-11) % Eos % (Auto) 0.3 (0-4) % Baso % (Auto) 0.6 (0-2) % Lymph # (Auto) 1.3 (1.2-4.9) X10*3/uL [place] # (Auto) 1.6 H (0.1-1.2) X10*3/uL Eos # (Auto) 0.0 (0.0-0.4) X10*3/uL Baso # (Auto) 0.1 (0.0-0.2) X10*3/uL Abs Immat Gran (auto) 0.03 (0.00-0.03) X10*3/uL Absolute Neuts (auto) 7.1 (2.0-8.3) x10*3/uL Absolute Nucleated RBC 0.000 (0.0-0.012) X10*3/uL Nucleated RBC % (auto) 0.0 (0.0-0.2) /100WBC ESR 53 H (0-15) MM/HR Sodium (135-145) mmol/L Potassium (3.3-5.1) mmol/L Chloride (96-108) mmol/L Carbon Dioxide (22-29) mmol/L Anion Gap (12-20) BUN (9-16) mg/dL Creatinine (0.5-1.4) mg/dL Estim Creat Clear Calc Estimated GFR Random Glucose (60-115) mg/dL Lactic Acid (0.5-2.0) mmol/L Calcium (8.4-10.2) mg/dL Magnesium (1.6-2.6) mg/dL Total Bilirubin (0.0-1.0) mg/dL AST (5-37) U/L ALT (0-40) U/L Alkaline Phosphatase (39-117) U/L Troponin I High Sens (<3.5-35.0) ng/L C-Reactive Protein (< or = 0.50) mg/dL Total Protein (6.5-8.0) g/dL Albumin (3.5-5.0) g/dL Urine Color Urine Appearance Urine pH (5.0-9.0) Ur Specific [place] (1.005-1.025) Urine Protein (Neg-Trace) mg/dL Urine Glucose (UA) (Negative) mg/dL Urine Ketones (Negative) mg/dL Urine Blood (Negative) Urine Nitrite (Negative) Ur Leukocyte Esterase (Negative) Urine RBC (0-2) /HPF Urine WBC (0-5) /HPF Ur Squamous Epith Cells (0-2) /HPF Urine Bacteria (None Seen) Hyaline Casts (0-2) /LPF Influenza Type A (PCR) NEGATIVE (Negative) Influenza Type B (PCR) NEGATIVE (Negative) RSV RNA Qual (PCR) NEGATIVE (Negative) SARS-CoV-2 RNA (RT-PCR) NEGATIVE (Negative) 08/07/22 Range/Units 09:54 WBC (4.8-10.8) X10*3/uL RBC (4.60-5.80) X10*6/uL Hgb (14.0-18.0) g/dl Hct (42.0-52.0) % MCV (80.0-98.0) fL MCH (27.0-33.0) pg MCHC (31.0-36.0) g/dl RDW (11.0-16.0) % Plt Count (160-400) X10*3/uL MPV (9.4-12.4) fL Immature Gran % (Auto) (0.0-0.4) % Neut % (Auto) (45-73) % Lymph % (Auto) (20-40) % [place] % (Auto) (2-11) % Eos % (Auto) (0-4) % Baso % (Auto) (0-2) % Lymph # (Auto) (1.2-4.9) X10*3/uL [place] # (Auto) (0.1-1.2) X10*3/uL Eos # (Auto) (0.0-0.4) X10*3/uL Baso # (Auto) (0.0-0.2) X10*3/uL Abs Immat Gran (auto) (0.00-0.03) X10*3/uL Absolute Neuts (auto) (2.0-8.3) x10*3/uL Absolute Nucleated RBC (0.0-0.012) X10*3/uL Nucleated RBC % (auto) (0.0-0.2) /100WBC ESR (0-15) MM/HR Sodium 137 (135-145) mmol/L Potassium 3.7 (3.3-5.1) mmol/L Chloride 104 (96-108) mmol/L Carbon Dioxide 21 L (22-29) mmol/L Anion Gap 16 (12-20) BUN 25 H (9-16) mg/dL Creatinine 1.06 (0.5-1.4) mg/dL Estim Creat Clear Calc 42.4 Estimated GFR > 60 Random Glucose 115 (60-115) mg/dL Lactic Acid (0.5-2.0) mmol/L Calcium 9.1 (8.4-10.2) mg/dL Magnesium (1.6-2.6) mg/dL Total Bilirubin (0.0-1.0) mg/dL AST (5-37) U/L ALT (0-40) U/L Alkaline Phosphatase (39-117) U/L Troponin I High Sens (<3.5-35.0) ng/L C-Reactive Protein 19.80 H (< or = 0.50) mg/dL Total Protein (6.5-8.0) g/dL Albumin (3.5-5.0) g/dL Urine Color Urine Appearance Urine pH (5.0-9.0) Ur Specific [place] (1.005-1.025) Urine Protein (Neg-Trace) mg/dL Urine Glucose (UA) (Negative) mg/dL Urine Ketones (Negative) mg/dL Urine Blood (Negative) Urine Nitrite (Negative) Ur Leukocyte Esterase (Negative) Urine RBC (0-2) /HPF Urine WBC (0-5) /HPF Ur Squamous Epith Cells (0-2) /HPF Urine Bacteria (None Seen) Hyaline Casts (0-2) /LPF Influenza Type A (PCR) (Negative) Influenza Type B (PCR) (Negative) RSV RNA Qual (PCR) (Negative) SARS-CoV-2 RNA (RT-PCR) (Negative) <MILLI Garcia - Last Filed: 08/07/22 17:40> Imaging Data Chest x-ray: Attestation: I personally reviewed and interpreted this imaging study as follows: <MILLI Lee - Last Filed: 08/06/22 17:56> My impression: No acute process. <MILLI Lee - Last Filed: 08/06/22 17:56> Radiologist's impression: EXAMINATION: XR CHEST CLINICAL INFORMATION: Pain COMPARISON: CXR from 05/05/2022 TECHNIQUE: Frontal view of the chest was obtained. FINDINGS: Lungs are well expanded and clear. Cardiac silhouette is normal in size. The pulmonary vascular pattern is normal. The trachea is midline in position. Moderate osteoarthrosis of acromioclavicular joints. Multilevel osteophyte formation of the visualized spine. There appear to be old, healed fractures of left posterolateral fourth and fifth ribss XR/XR chest 1V IMPRESSION: No acute cardiopulmonary disease compared to 05/05/2022. Dictated By: Randy Merritt MD Signed By: Electronically signed by Randy Merritt MD 08/06/22 9199 <MILLI Lee - Last Filed: 08/06/22 17:56> Bilateral knee and hip XR: Attestation: I personally reviewed and interpreted this imaging study as follows: <MILLI Lee - Last Filed: 08/06/22 17:56> My impression: Osteoarthritis. <MILLI Lee - Last Filed: 08/06/22 17:56> Radiologist's impression: EXAMINATION: XR LEFT HIP WITH PELVIS XR LEFT KNEE XR RIGHT KNEE CLINICAL INFORMATION: Pain of knees and left hip.? COMPARISON: None? TECHNIQUE: Pelvis, AP view. Left hip, 2 views. Right knee, 2 views Left knee, 2 views? FINDINGS: PELVIS AND LEFT HIP: Multilevel degenerative disc space loss and osteophyte formation of the visualized lumbar spine. Pelvic bones have normal alignment. Pubic symphysis and sacroiliac joints are intact. There appears to be an enthesophyte of the left sacroiliac joint. The joint space of each hip is maintained. Small osteophytes of the hips. The 2 views of the left hip show the femoral head to be well-positioned within the intact acetabulum. The soft tissues around the hip are unremarkable. LEFT KNEE: No fracture, subluxation or joint effusion. The tibiofemoral compartments are suboptimally evaluated due to knee flexion. There appears to be at least moderate loss of the medial tibiofemoral joint space. Small osteophytes are present at the degenerated patellofemoral compartment. The prepatellar soft tissues appear to be mildly swollen. RIGHT KNEE: No fracture or subluxation. Moderate joint effusion is evident. There is tricompartmental osteophyte formation. The tibiofemoral joint spaces are suboptimally evaluated on the frontal view due to flexion of the knee. There appears to be mild narrowing of medial tibiofemoral joint space and [id number] narrowing of the lateral tibiofemoral joint space. Two intra-articular osteochondral bodies are likely present in the posterior knee. The prepatellar soft tissues are mildly swollen. XR/XR hip LT w PEL1V IMPRESSION: *? No acute findings within the pelvis or hips. No fracture or subluxation.? *? Tricompartmental osteoarthritis of both knees, and moderate right knee joint effusion. *? There appears to be mild soft tissue swelling in the prepatellar region of each knee. Dictated By: Randy Merritt MD Signed By: Electronically signed by Randy Merritt MD 08/06/22 1311 <MILLI Lee - Last Filed: 08/06/22 17:56> CT head and C-Spine: Attestation: I personally reviewed and interpreted this imaging study as follows: <MILLI Lee - Last Filed: 08/06/22 17:56> My impression: No acute process. <MILLI Lee - Last Filed: 08/06/22 17:56> Radiologist's impression: EXAMINATION: CT HEAD W/O IV CONTRAST CT CERVICAL SPINE W/O IV CONTRAST CLINICAL INFORMATION: Weakness. COMPARISON: 05/05/2022 TECHNIQUE: Head - Contiguous axial imaging of the head was performed from the skull base to the vertex without the administration of intravenous contrast, and axial images are reconstructed at 2 mm and 5 mm slice thickness. Cervical spine - A volumetric, helical CT acquisition of the cervical spine was obtained without contrast; in addition to the standard set of axial images, multiplanar reformatted images were provided in the coronal and sagittal imaging planes. This CT examination was performed using dose optimization techniques as appropriate, variously including the following: *Automated exposure control *Adjustment of mA and/or kV according to patient size (this includes techniques or standardized protocols for targeted exams where dose is matched to indication/reason for exam; i.e. extremities or head) *Use of iterative reconstruction technique DLP: 1011 mGy-cm (total) FINDINGS: HEAD: No acute findings compared to prior head CT from 05/05/2022. No evidence of intracranial hemorrhage, major vascular territory infarction, focal mass effect or midline shift. Dumont to white matter differentiation is preserved. 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 The chronic hypoattenuation within supratentorial white matter is compatible with sequela of [id number]-wn-[id number] microangiopathy. There is atherosclerotic calcification of cavernous carotid arteries. Mild parenchymal volume loss with commensurate prominence of ventricles and sulci; no hydrocephalus. The brainstem is unremarkable. The cerebellar tonsils are normal position. The mastoid air cells are well aerated. Prior ocular lens extractions. Mild mucosal thickening of inferior maxillary sinuses. There is periapical lucency around right first premolar tooth and right second molar tooth. The temporomandibular joints are unremarkable. CERVICAL SPINE: The cervical spine has normal curvature. The craniocervical junction is normal. The occipital condyles, dens and atlantodental articulation are intact. The atlantodens interval is 0.2 cm. The vertebral body heights are maintained.? No fractures in the anterior or posterior elements. No prevertebral soft tissue swelling. 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 Chronic 0.3 cm of degenerative anterolisthesis of C7 on T1 due to the facet arthropathy at this level. Minimal degenerative retrolisthesis at C3-C4 and C4-C5. No new vertebral subluxations. The posterior disc-osteophyte complexes cause severe canal stenosis at C3-C4, C4-C5 and C5-C6. Also noted is multilevel severe bilateral neural foraminal stenosis. No soft tissue hematoma within the visualized neck. Thyroid gland is atrophied. Lung apices are unremarkable. CT/CT head/brain wo IV con IMPRESSION: *? No acute intracranial pathology compared to recent prior head CT from 05/05/2022. ? *? No fractures within the severely degenerated cervical spine. No new findings in the spine compared to 05/05/2022. There is severe multilevel bilateral neural foraminal stenosis and severe spinal canal stenosis of the cervical spine. 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 Please refer to the cervical spine MRI from 02/28/2012. Dictated By: Randy Merritt MD Signed By: Electronically signed by Randy Merritt MD 08/06/22 1252 <MILLI Lee - Last Filed: 08/06/22 17:56> ECG Data Attestation: I personally reviewed and interpreted this ECG as follows: <MILLI Lee - Last Filed: 08/06/22 17:56> Prior ECG tracings: available for review <MILLI Lee - Last Filed: 08/06/22 17:56> Interpretation: Vent. Rate: 101 BPM ? ? Atrial Rate: 101 BPM P-R Int: 136 ms? QRS Dur: 072 ms QT Int: 334 ms ? ? ? P-R-T Axes: 070 -24 011 degrees QTc Int: 433 ms ? Poor data quality Normal sinus rhythm Left axis deviation Otherwise normal ECG When compared with ECG of 05-MAY-2022 17:29, Heart rate has increased ? Electronically Signed By:MARY GRACE BASSETT MD Dictated By: Junior Bassett MD Signed By: Electronically signed by Junior Bassett MD 08/06/22 1259 <MILLI Lee - Last Filed: 08/06/22 17:56> Discharge Plan Discharge Clinical Impression: Weakness <MILLI Lee - Last Filed: 08/06/22 17:56> Patient Disposition: Still a Patient <MILLI Lee - Last Filed: 08/06/22 17:56> Prescriptions: No Action tolterodine 4 mg capsule,extended release 24hr 1 cap PO QPM paroxetine HCl 10 mg tablet 1 tab PO BEDTIME tizanidine 2 mg tablet 1 tab PO BEDTIME meloxicam 15 mg tablet 1 tab PO BEDTIME tamsulosin 0.4 mg capsule 1 cap PO BEDTIME mirtazapine 15 mg tablet 1 tab PO BEDTIME B-complex with vitamin C Tablet 1 tab PO BEDTIME calcium carbonate-vitamin D3 [Oyster Shell Calcium-Vit D3] 500 mg-10 mcg (400 unit) tablet 1 tab PO DAILY cholecalciferol (vitamin D3) 50 mcg (2,000 unit) capsule 1 cap PO DAILY <MILLI Lee - Last Filed: 08/06/22 17:56>
--- NOTE | 2022-08-06 11:27 | ECG_ITS ---
Test Reason : SYNCOPE Blood Pressure : / mmHG Vent. Rate : 101 BPM Atrial Rate : 101 BPM P-R Int : 136 ms QRS Dur : 072 ms QT Int : 334 ms P-R-T Axes : 070 -24 011 degrees QTc Int : 433 ms Poor data quality Normal sinus rhythm Left axis deviation Otherwise normal ECG When compared with ECG of 05-MAY-2022 17:29, Heart rate has increased Referred By: Natalia Bennett Electronically Signed By:MARY GRACE BASSETT MD
[2022-08-06 11:43] VITALS: BP 126/60; PULSE 93
[2022-08-06 12:00] VITALS: BP 126/60; PULSE 100; RESP 18; TEMP 36.3; O2SAT 95
--- NOTE | 2022-08-06 12:31 | PC.NURSE ---
patient alert to person, spray i painter intact, ekg performed, iv inserted labs, drawn, pt previously was in radiology, c/o 03/05 pain, call walker within reach, will continue to monitor
[2022-08-06 12:43] LABS: Basophils Absolute Auto 0.1 X10*3/uL (0.0-0.2); Basophils Percent Auto 0.8 % (0-2); Eosinophils Percent Auto 0.4 % (0-4); Hematocrit 32.2 % (42.0-52.0); Hemoglobin 9.7 g/dl (14.0-18.0); Imm Gran Abs Auto 0.03 X10*3/uL (0.00-0.03); Imm Gran Pct Auto 0.4 % (0.0-0.4); Lymphocytes Absolute Auto 1.2 X10*3/uL (1.2-4.9); Lymphocytes Percent Auto 13.7 % (20-40); MANUAL DIFF FLAG NO; Mean Corpuscular HGB Conc 30.1 g/dl (31.0-36.0); Mean Corpuscular Volume 76.3 fL (80.0-98.0); Mean Platelet Volume 8.9 fL (9.4-12.4); Monocytes Absolute Auto 1.2 X10*3/uL (0.1-1.2); Monocytes Percent Auto 13.6 % (2-11); Neutrophils Absolute Auto 6.1 x10*3/uL (2.0-8.3); Neutrophils Percent Auto 71.1 % (45-73); Platelet Count 275 X10*3/uL (160-400); Red Blood Count 4.22 X10*6/uL (4.60-5.80); Red Cell Distribution Width 16.8 % (11.0-16.0); White Blood Count 8.5 X10*3/uL (4.8-10.8)
[2022-08-06 13:08] LABS: Lactic Acid 1.2 mmol/L (0.5-2.0)
[2022-08-06 13:13] LABS: Alanine Aminotransferase 14 U/L (0-40); Albumin Level 4.1 g/dL (3.5-5.0); Alkaline Phosphatase 70 U/L (39-117); Anion Gap 14 (12-20); Aspartate Amino Transferase 27 U/L (5-37); Bilirubin Total 0.6 mg/dL (0.0-1.0); Blood Urea Nitrogen 25 mg/dL (9-16); Calcium 9.9 mg/dL (8.4-10.2); Carbon Dioxide 25 mmol/L (22-29); Chloride 103 mmol/L (96-108); Creatinine Clr Calc Pharmacy 44.1; Estimated Glomerular Filt Rate > 60; Glucose Random 91 mg/dL (60-115); Potassium 4.4 mmol/L (3.3-5.1); Sodium 138 mmol/L (135-145); Total Protein 7.2 g/dL (6.5-8.0)
[2022-08-06 13:41] LABS: Influenza A PCR NEGATIVE (Negative); Influenza B PCR NEGATIVE (Negative); Resp Syncy Virus RNA Qual PCR NEGATIVE (Negative); SARS COV2 PCR INHOUSE NEGATIVE (Negative)
[2022-08-06 17:01] LABS: Appearance Urine Clear; Color Urine Yellow; Glucose Urine UA Negative (Negative); Leukocyte Esterase Urine Trace (Negative); Nitrite Urine Negative (Negative); PH 5.5 (5.0-9.0); UMIC TRIGGER UACC YES; Urine Blood Small (1+) (Negative); Urine Ketones 15 mg/dL (Negative); Urine Protein Trace mg/dL (Neg-Trace)
[2022-08-06 17:15] LABS: Bacteria Urine None Seen (None Seen); Hyaline Casts Urine 0-2 /LPF (0-2); Squamous Epithelial Cell Urine 0-2 /HPF (0-2); WBC Urine 0-5 /HPF (0-5)
[2022-08-06 19:46] VITALS: BP 125/65; PULSE 98; RESP 17; TEMP 36; O2SAT 94
--- NOTE | 2022-08-06 19:48 | PC.NURSE ---
Addendum entered by Maribell Ch RN 08/06/22 22:42: Patient repositioned onto his right side for comfort. He remains alert, oriented to self ONLY at this time- baseline dementia and was only a&o x1 on arrival. Addendum entered by Maribell Ch RN 08/06/22 22:34: Patient increasingly confused throughout the evening (known history of dementia). He is also found scooted down in stretcher unable to get himself up in bed. Patient boosted and repositioned in stretcher with 2 RNs. Bilteral knees swollen and kkx-or-quraf, R>L. xrays complete, awaiting PT/CM. Original Note: Care of patient assumed at 1900. Patient found resting in hallway stretcher with eyes open. He is alert, oriented x3, conversational. He endorses chronic back pain. Vitals are stable. He understands plan to work with PT in the morning and is agreeable. He has no needs or concerns at this time.
--- NOTE | 2022-08-06 20:37 | MHC.CM.ED ---
CM met with patient at request of Natalia MORLEY. Pt with falls and difficulty ambulating. Croatian speaking only. ward supervisor used.Pt has dementia and is a poor historian.Interview conducted with Klaus. Lives with Nephew/HCP/MICROFILM CLERK Klaus Puriirez ([phone]). HCP not on file. States copy at PCP. Pt has a hospital bed, cane and walker. Had covid vax x2. No booster. 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 Nephew is MICROFILM CLERK through [employer]. PT is pending. Agreeable to STR. Nephew requests local referrals. Referrals made. CM to follow for discharge planning.
[2022-08-06 23:45] VITALS: BP 111/54; PULSE 110; RESP 16; TEMP 38.8; O2SAT 93
[2022-08-06] MEDS: Acetaminophen 325 MG TABLET 975 MG PO (23:49)
[2022-08-07] VITALS (8 sets, daily range): BP systolic 106–145; BP diastolic 66–99; PULSE 98–112; RESP 12–18; TEMP 36.7–37.3; O2SAT 94–99
--- NOTE | 2022-08-07 00:01 | PC.NURSE ---
Addendum entered by Maribell Ch RN 08/07/22 02:05: Fever improving. HR was 1teens at peak of fever, 102 degrees. HR also trending downward, now low 100s. MD Retana made aware of fever improvement and persistent low grade tachycardia- plan for small fluid bolus. Original Note: Patient noted to be 102 degrees orally. Bilteral knees remain hot to touch. MD Retana made aware- planning for tylenol and additional labs.
[2022-08-07 00:07] LABS: Basophils Absolute Auto 0.1 X10*3/uL (0.0-0.2); Basophils Percent Auto 0.6 % (0-2); Eosinophils Percent Auto 0.1 % (0-4); Hemoglobin 8.8 g/dl (14.0-18.0); Imm Gran Abs Auto 0.03 X10*3/uL (0.00-0.03); Imm Gran Pct Auto 0.3 % (0.0-0.4); Lymphocytes Percent Auto 9.8 % (20-40); MANUAL DIFF FLAG NO; Mean Corpuscular HGB Conc 31.4 g/dl (31.0-36.0); Mean Corpuscular Hemoglobin 23.6 pg (27.0-33.0); Mean Corpuscular Volume 75.1 fL (80.0-98.0); Mean Platelet Volume 9.1 fL (9.4-12.4); Monocytes Absolute Auto 1.3 X10*3/uL (0.1-1.2); Neutrophils Absolute Auto 8.2 x10*3/uL (2.0-8.3); Neutrophils Percent Auto 77.2 % (45-73); Platelet Count 260 X10*3/uL (160-400); Red Blood Count 3.73 X10*6/uL (4.60-5.80); Red Cell Distribution Width 16.5 % (11.0-16.0); White Blood Count 10.6 X10*3/uL (4.8-10.8)
[2022-08-07 00:18] LABS: Lactic Acid 0.8 mmol/L (0.5-2.0)
[2022-08-07 00:25] LABS: Alanine Aminotransferase 19 U/L (0-40); Albumin Level 3.9 g/dL (3.5-5.0); Alkaline Phosphatase 74 U/L (39-117); Anion Gap 17 (12-20); Aspartate Amino Transferase 37 U/L (5-37); Bilirubin Total 0.6 mg/dL (0.0-1.0); Blood Urea Nitrogen 22 mg/dL (9-16); Calcium 9.5 mg/dL (8.4-10.2); Carbon Dioxide 22 mmol/L (22-29); Chloride 102 mmol/L (96-108); Creatinine Clr Calc Pharmacy 43.7; Estimated Glomerular Filt Rate > 60; Glucose Random 110 mg/dL (60-115); Sodium 137 mmol/L (135-145); Total Protein 6.9 g/dL (6.5-8.0)
[2022-08-07 01:00] LABS: Influenza A PCR NEGATIVE (Negative); Influenza B PCR NEGATIVE (Negative); Resp Syncy Virus RNA Qual PCR NEGATIVE (Negative); SARS COV2 PCR INHOUSE NEGATIVE (Negative)
--- NOTE | 2022-08-07 01:41 | PC.NURSE ---
Pt given tamir care. Pt set up with a condom catheter. Pt repositioned in bed and given a sheet and call walker placed within reach.
[2022-08-07] MEDS: 0.9 % Sodium Chloride 500 ML 999 ML IV (01:42)
--- NOTE | 2022-08-07 03:15 | PC.NURSE ---
PT moved into a recliner chair per the Pt request. Pt given sheets and call walker placed in reach.
--- NOTE | 2022-08-07 07:58 | PC.NURSE ---
patient assessed with use of lang interpreter . Malay speaking only . a/ox3 . pearrla . heart rate regular at 98 beats per minute . lungs clear throughout . bilateral knee pain 10 out of 10 reported by patient . right knee swollen , warm to touch . patients other skin pink warm and dry . abdomen soft not tender . P.T at bedside for evaluation . patient unable to stand with assistance of 2 people . Reports back pain of 10 out of 10 . patient has a catheter that is patent ,putting out clear urine . patient has eaten 100 percent of his breakfast . provider aware obtaining order for pain management . patient awaiting case management . patent aware of plan of care .
[2022-08-07] MEDS: oxyCODONE HCl Immed Release 5 MG TABLET PO ×2 (08:13→17:47)
[2022-08-07] MEDS: Acetaminophen 325 MG TABLET 975 MG PO ×2 (08:13→17:47)
--- NOTE | 2022-08-07 08:13 | PC.NURSE ---
Patient medicated with 975 of Tylenol and 5 mg oxycodone as ordered for pain level of 10 out of 10 . patient has call light in hand and red non skid socks on . patient aware of plan of care .
[2022-08-07 09:58] LABS: MANUAL DIFF FLAG NO
[2022-08-07 10:00] LABS: Basophils Absolute Auto 0.1 X10*3/uL (0.0-0.2); Basophils Percent Auto 0.6 % (0-2); Eosinophils Percent Auto 0.3 % (0-4); Hematocrit 27.7 % (42.0-52.0); Hemoglobin 8.9 g/dl (14.0-18.0); Imm Gran Abs Auto 0.03 X10*3/uL (0.00-0.03); Imm Gran Pct Auto 0.3 % (0.0-0.4); Lymphocytes Absolute Auto 1.3 X10*3/uL (1.2-4.9); Lymphocytes Percent Auto 12.7 % (20-40); Mean Corpuscular HGB Conc 32.1 g/dl (31.0-36.0); Mean Corpuscular Hemoglobin 24.2 pg (27.0-33.0); Mean Corpuscular Volume 75.3 fL (80.0-98.0); Mean Platelet Volume 8.8 fL (9.4-12.4); Monocytes Absolute Auto 1.6 X10*3/uL (0.1-1.2); Monocytes Percent Auto 15.6 % (2-11); Neutrophils Absolute Auto 7.1 x10*3/uL (2.0-8.3); Neutrophils Percent Auto 70.5 % (45-73); Platelet Count 251 X10*3/uL (160-400); Red Blood Count 3.68 X10*6/uL (4.60-5.80); Red Cell Distribution Width 16.7 % (11.0-16.0); SCAN SMEAR FLAG 1
[2022-08-07 10:16] LABS: Anion Gap 16 (12-20); Blood Urea Nitrogen 25 mg/dL (9-16); Calcium 9.1 mg/dL (8.4-10.2); Carbon Dioxide 21 mmol/L (22-29); Chloride 104 mmol/L (96-108); Creatinine Clr Calc Pharmacy 42.4; Estimated Glomerular Filt Rate > 60; Glucose Random 115 mg/dL (60-115); Potassium 3.7 mmol/L (3.3-5.1); Sodium 137 mmol/L (135-145)
[2022-08-07 10:48] LABS: Erythrocyte Sedimentation Rate 53 MM/HR (0-15)
--- NOTE | 2022-08-07 11:19 | MHC.CM.ED ---
Patient remains in ER. Physical therapy eval completed.Short term rehab is recommended. Clinical updates sent to facilities still following patient. No HCP on file. HCP might be on file at PCP's office at [facility]. Will not be able to verify before Tuesday. Continue to monitor for d/c needs.
--- NOTE | 2022-08-07 16:43 | PC.NURSE ---
Patient communicated with use of eating disorder psychologist . Patient required assistance of security to return to bed from chair . patient unable to assist with transfer . patient aware of plan of care .
--- NOTE | 2022-08-07 16:46 | PC.NURSE ---
THIS PCT ASSUMED CARE OF PT ,PT WAS IN RECLINER ,PT WANTED TO GO BACK TO BED ,PT WAS NOT ABLE TO STAND ,TRY TO USE SIT TO STAND ,DID NOT WORK FOR PT ,SECURITY WAS CALL TO HELP US TRANSFER PT BACK TO BED .
--- NOTE | 2022-08-07 17:47 | PC.NURSE ---
patient assessed with use of assistant unit forester . primary language Thai . pain level of knees and back 10 out of 10 obtained order for 975mg of oxycodone 5mg . provider also asked to iris wrap bilaterally knees to reduce swelling . patient aware of plan of care .
[2022-08-07] MEDS: iohexoL 350 MG/ML 100 ML INFUS..BTL IV (19:25)
[2022-08-07] MEDS: Docusate Sodium 100 MG CAPSULE PO (20:29)
--- NOTE | 2022-08-07 20:46 | PC.NURSE ---
Report given to Jerrica in overflow, pt will be going to overflow room 9
[2022-08-08 06:00] VITALS: BP 131/54; PULSE 103; RESP 16; O2SAT 96
--- NOTE | 2022-08-08 06:31 | PC.NURSE ---
Patient slept off/on throughout the shift. [employer] required several times d/t pt confused on what time of day it was. [employer] 5am patient attempting to climb OOB thinking it was lunch time. Explained he needs to see physical therapy before attempting to get OOB as he was unable to participate in transfer yesterday. patient appears like he is in pain yet refuses medications stating it is like drugs on the street. Medication teaching r/t Tylenol. but patient continues to refuse.
[2022-08-08] MEDS: Acetaminophen 325 MG TABLET 975 MG PO ×2 (08:17→21:20)
[2022-08-08 11:29] VITALS: BP 133/67; PULSE 91; RESP 18; TEMP 37.1; O2SAT 97
[2022-08-08 11:44] LABS: COVID-19 Test Negative (Negative); IDNOW Serial# 16C4AD1C
--- NOTE | 2022-08-08 12:37 | PC.NURSE ---
pt to mri
--- NOTE | 2022-08-08 13:54 | PC.NURSE ---
pt return from mri
--- NOTE | 2022-08-08 16:31 | PC.NURSE ---
family at bedside. aware of plan of care. pt appears to remain at baseline. denies any complaints at this time.
[2022-08-08] MEDS: oxyCODONE HCl Immed Release 5 MG TABLET PO (16:50)
[2022-08-08 21:18] VITALS: BP 148/78; PULSE 99; RESP 20; TEMP 37.3; O2SAT 95
[2022-08-08] MEDS: Docusate Sodium 100 MG CAPSULE PO (21:19)
[2022-08-08] MEDS: TiZANidine HCL 4 MG TABLET 2 MG PO (21:19)
[2022-08-08] MEDS: Mirtazapine 15 MG TABLET PO (21:20)
[2022-08-08] MEDS: Tamsulosin HCL 0.4 MG CAPSULE PO ×2 (21:20→21:22)
[2022-08-08] MEDS: Multivitamin TABLET 1 TAB PO (21:21)
--- NOTE | 2022-08-08 22:09 | PC.NURSE ---
Pt has refused to take Paroxetine and tolterodine.
[2022-08-09 02:45] VITALS: BP 144/87; PULSE 100; RESP 16; TEMP 36.8; O2SAT 98
--- NOTE | 2022-08-09 05:27 | PC.NURSE ---
At 05:00 position patient onto left side so he could use the urinal independently.
[2022-08-09 06:00] VITALS: BP 110/88; PULSE 103; RESP 18; TEMP 37.3; O2SAT 97
[2022-08-09 07:31] VITALS: BP 149/120; PULSE 105; RESP 14; TEMP 36.9; O2SAT 93
[2022-08-09] MEDS: Acetaminophen 325 MG TABLET 975 MG PO ×2 (08:15→20:56)
[2022-08-09] MEDS: Calcium + Vitamin D 250 MG TABLET 500 MG PO (08:15)
[2022-08-09] MEDS: Cholecalciferol (Vitamin D3) 25 MCG TABLET 50 MCG PO (08:16)
[2022-08-09] MEDS: Docusate Sodium 100 MG CAPSULE PO ×2 (08:16→20:59)
[2022-08-09 09:13] VITALS: BP 103/56
--- NOTE | 2022-08-09 10:03 | MHC.CM.ED ---
Addendum entered by Elizabeth Casanova 08/09/22 10:26: Copy of HCP & MOLST obtained from [facility]. Left voicemail for patient's nephew/HCP, Klaus, via telephone at [phone] requesting return telephone call to discuss placement options. Original Note: Patient remains in ER. PCP's office does not have a HCP on file. T/W spoke with Dominique at [facility]. Dominique will fax HCP to T/W. Dashawn Martinez at [facility] would be willing to offer a bed once HCP is obtained. Continue to monitor for d/c needs.
[2022-08-09 12:40] VITALS: BP 135/72; PULSE 94; RESP 14; TEMP 36.2; O2SAT 94
--- NOTE | 2022-08-09 12:40 | PC.NURSE ---
patient came from ed to overflow at 1230, this nurse resumed care upon his arrival, patient a&o, c/o low back and bilateral leg pain that pt states comes in waves but currently 11/05, vss, call walker within reach, will continue to monitor
--- NOTE | 2022-08-09 12:50 | MHC.CM.ED ---
Spoke with Klaus via telephone at [phone]. Facility choices discussed. Klaus will be on site at 2pm to meet with patient and case management. Klaus wants to speak to patient before official placement is decided. Continue to monitor for d/c needs.
--- NOTE | 2022-08-09 14:54 | MHC.CM.ED ---
Met with patient and nephew/HCP, Klaus in regards to discharge planning. Patient accepts bed at [facility]. [facility] has been asked to obtain insurance auth. Anticipate patient will remain in ER overflow overnight. Continue to monitor for d/c needs.
--- NOTE | 2022-08-09 16:31 | PC.NURSE ---
patient a&o person/place, pt requested to sit at bedside which he has be assisted with, pt c/o mild pain 11/05- denies medication at this time, call walker within reach, will continue to monitor.
--- NOTE | 2022-08-09 19:58 | PC.NURSE ---
Pt beginning to . Attempting to get out of bed, confused.
--- NOTE | 2022-08-09 20:18 | PC.NURSE ---
Pharmacy contacted to please deliver one medication not available on 2nd floor.
[2022-08-09] MEDS: PARoxetine HCL 10 MG TABLET PO (20:58)
[2022-08-09] MEDS: TiZANidine HCL 4 MG TABLET 2 MG PO (20:58)
[2022-08-09] MEDS: Mirtazapine 15 MG TABLET PO (20:59)
[2022-08-09] MEDS: Multivitamin TABLET 1 TAB PO (20:59)
[2022-08-09] MEDS: Tolterodine Tartrate LA 4 MG CAP.ER.24H PO (21:10)
[2022-08-09] MEDS: Tamsulosin HCL 0.4 MG CAPSULE PO (21:10)
[2022-08-09 21:21] VITALS: BP 137/71; PULSE 96; RESP 17; TEMP 36.9; O2SAT 96
[2022-08-10 06:00] VITALS: BP 135/72; PULSE 78; RESP 16; TEMP 36.7; O2SAT 98
--- NOTE | 2022-08-10 06:14 | PC.NURSE ---
Pt asleep, resting comfortably
[2022-08-10] MEDS: Cholecalciferol (Vitamin D3) 25 MCG TABLET 50 MCG PO (07:20)
[2022-08-10] MEDS: Calcium + Vitamin D 250 MG TABLET 500 MG PO (07:20)
[2022-08-10] MEDS: Docusate Sodium 100 MG CAPSULE PO (07:21)
[2022-08-10] MEDS: Acetaminophen 325 MG TABLET 975 MG PO (07:21)
--- NOTE | 2022-08-10 08:17 | PC.NURSE ---
patient change ,complete bed change relaxing watching TV
--- NOTE | 2022-08-10 11:13 | MHC.CM.ED ---
Addendum entered by Elizabeth Casanova 08/10/22 13:30: Insurance auth has been obtained. Patient can leave ER at 4pm. Vidhya LARA booked. [facility] with chart. Patient, Sameera Magana RN and Natalia MORLEY aware. Original Note: Patient remains in ER. [facility] is still in the process of obtaining insurance auth. Continue to monitor for d/c needs.
== END 2022-08-10 14:20 | disposition skilled nursing facility (03) ==
PROVIDERS: Physician Assistant; Physician Assistant Medical; Emergency Provider Student in an Organized Health Care Education/Training Program; PCP Internal Medicine
DX: R55 Syncope and collapse (principal); M54.50 Low back pain, unspecified; R26.89 Other abnormalities of gait and mobility; R51.9 Headache, unspecified; M25.552 Pain in left hip; M25.561 Pain in right knee; M54.2 Cervicalgia; M25.562 Pain in left knee; R50.9 Fever, unspecified; Z20.822 Contact with and (suspected) exposure to COVID-19; Z79.899 Other long term (current) drug therapy
CPT/HCPCS: 0241U; 36415; 70450; 71045; 72125; 72132; 72158; 73502; 73560; 80048; 80053; 81001; 81003; 83605; 83735; 84484; 85025; 85652; 86140; 87040; 87635; 93005; 96361; 96374; 97162; 99285; A9585; Q9967

== ENCOUNTER 2023-02-24 16:19 | Outpatient (REF) | payer OTHER, SELFPAY ==
--- NOTE | ~2023-02-24 | XR_ITS ---
EXAMINATION: XR KNEE, LEFT CLINICAL INFORMATION: Left knee pain. OA. COMPARISON: Left knee 08/06/2022 TECHNIQUE: Four views of the left knee. FINDINGS: There is a small to moderate suprapatellar joint effusion. There is significant loss of tricompartment joint space without any visible acute fracture or dislocation. No lytic or sclerotic process seen. There is mild osteopenia. XR/XR knee LT 2V IMPRESSION: 1. 1. Severe degenerative changes left knee with small to moderate suprapatellar joint effusion. 2. No acute fracture or dislocation seen.
== END 2023-02-24 16:20 | disposition home or self-care (01) ==
LOC: HO.XRAY 16:19
PROVIDERS: PCP Internal Medicine; Visit Provider Internal Medicine
DX: M17.12 Unilateral primary osteoarthritis, left knee (principal)
CPT/HCPCS: 73560

== ENCOUNTER 2024-02-07 14:54 | Outpatient (REF) | payer OTHER, SELFPAY ==
[2024-02-07 17:55] LABS: MANUAL DIFF FLAG NO
[2024-02-07 18:21] LABS: Alanine Aminotransferase 17 U/L (0-40); Alkaline Phosphatase 64 U/L (39-117); Anion Gap 14 (12-20); Aspartate Amino Transferase 20 U/L (5-37); Basophils Absolute Auto 0.1 X10*3/uL (0.0-0.2); Basophils Percent Auto 1.4 % (0-2); Bilirubin Total 0.2 mg/dL (0.0-1.0); Blood Urea Nitrogen 27 mg/dL (9-16); Calcium 9.8 mg/dL (8.4-10.2); Carbon Dioxide 27 mmol/L (22-29); Chloride 105 mmol/L (96-108); Eosinophils Absolute Auto 0.3 X10*3/uL (0.0-0.4); Eosinophils Percent Auto 4.2 % (0-4); Estimated Glomerular Filt Rate 59; Glucose Random 77 mg/dL (60-115); Hematocrit 42.1 % (42.0-52.0); Hemoglobin 13.2 g/dl (14.0-18.0); Imm Gran Abs Auto 0.02 X10*3/uL (0.00-0.03); Imm Gran Pct Auto 0.3 % (0.0-0.4); Lymphocytes Absolute Auto 1.8 X10*3/uL (1.2-4.9); Mean Corpuscular HGB Conc 31.4 g/dl (31.0-36.0); Mean Corpuscular Hemoglobin 27.8 pg (27.0-33.0); Mean Corpuscular Volume 88.8 fL (80.0-98.0); Mean Platelet Volume 10.2 fL (9.4-12.4); Monocytes Absolute Auto 0.8 X10*3/uL (0.1-1.2); Monocytes Percent Auto 12.3 % (2-11); Neutrophils Absolute Auto 3.6 x10*3/uL (2.0-8.3); Neutrophils Percent Auto 54.8 % (45-73); Platelet Count 241 X10*3/uL (160-400); Potassium 4.2 mmol/L (3.3-5.1); Red Blood Count 4.74 X10*6/uL (4.60-5.80); Red Cell Distribution Width 15.6 % (11.0-16.0); Sodium 142 mmol/L (135-145); Total Protein 7.2 g/dL (6.5-8.0); White Blood Count 6.5 X10*3/uL (4.8-10.8)
[2024-02-07 18:39] LABS: TSH reflex Free T4 3.76 uIU/mL (0.32-4.0)
== END 2024-02-07 14:55 | disposition home or self-care (01) ==
LOC: HO.CHCLDS 14:54
PROVIDERS: Visit Provider Internal Medicine
DX: R09.89 Other specified symptoms and signs involving the circulatory and respiratory systems (principal); R03.0 Elevated blood-pressure reading, without diagnosis of hypertension
CPT/HCPCS: 36415; 80053; 84443; 85025

== ENCOUNTER 2025-07-09 11:31 | Outpatient (REF) | payer OTHER, SELFPAY ==
[2025-07-09 13:58] LABS: MANUAL DIFF FLAG NO
[2025-07-09 14:00] LABS: Hematocrit 39.7 % (42.0-52.0); Hemoglobin 12.6 g/dl (14.0-18.0); Imm Gran Abs Auto 0.02 X10*3/uL (0.00-0.03); Imm Gran Pct Auto 0.3 % (0.0-0.4); Lymphocytes Absolute Auto 1.5 X10*3/uL (1.2-4.9); Mean Corpuscular HGB Conc 31.7 g/dl (31.0-36.0); Mean Corpuscular Hemoglobin 27.0 pg (27.0-33.0); Mean Corpuscular Volume 85.0 fL (80.0-98.0); NRBC Abs Auto 0.000 X10*3/uL (0.0-0.012); NRBC Pct Auto 0.0 /100WBC (0.0-0.2); Platelet Count 239 X10*3/uL (160-400); Red Blood Count 4.67 X10*6/uL (4.60-5.80); White Blood Count 6.9 X10*3/uL (4.8-10.8)
[2025-07-09 14:41] LABS: Alanine Aminotransferase 22 U/L (0-40); Albumin Level 3.9 g/dL (3.5-5.0); Alkaline Phosphatase 85 U/L (39-117); Anion Gap 10 (12-20); Aspartate Amino Transferase 24 U/L (5-37); Blood Urea Nitrogen 21 mg/dL (9-16); Calcium 9.2 mg/dL (8.4-10.2); Carbon Dioxide 27 mmol/L (22-29); Chloride 107 mmol/L (96-108); Cholesterol 149 mg/dL (<200); Estimated Glomerular Filt Rate > 60; HDL Cholesterol 38 mg/dL (>40); Potassium 4.2 mmol/L (3.3-5.1); Sodium 140 mmol/L (135-145); Total Protein 6.8 g/dL (6.5-8.0); Triglycerides 127 mg/dL (<150)
[2025-07-09 15:01] LABS: Folate 9.1 ng/mL (> or = 4.0); Vitamin B12 421 pg/mL (200-900)
[2025-07-09 15:21] LABS: Free T4 (Free Thyroxine) 0.85 ng/dL (0.71-1.85)
[2025-07-10 14:10] LABS: Appearance Urine Clear; Glucose Urine UA Negative (Negative); PH 6.5 (5.0-9.0); Specific Gravity - Urine 1.020 (1.005-1.025)
== END 2025-07-09 11:32 | disposition home or self-care (01) ==
LOC: HO.CHCLDS 11:31
PROVIDERS: Visit Provider Internal Medicine
DX: Z13.6 Encounter for screening for cardiovascular disorders (principal); N39.498 Other specified urinary incontinence
CPT/HCPCS: 36415; 80053; 80061; 81001; 82607; 82746; 84439; 84443; 85025